=== PATIENT | male | born 1930 | race Caucasian/White ===

== ENCOUNTER → 2017-09-25 | Outpatient (CLI) | payer MEDICARE ==
--- NOTE | 2017-09-25 15:26 | CT ---
EXAMINATION TYPE: CT urogram wo/w con DATE OF EXAM: 09/25/2017 COMPARISON: NONE HISTORY: Gross hematuria. CT DLP: 3957 mGycm, Automated Exposure Control for Dose Reduction was Utilized. CONTRAST: CT scan of the abdomen and pelvis is performed with oral and without and with IV Contrast, patient in jected with 60 mL of Isovue M300. FINDINGS: Small hiatal hernia noted. LUNG BASES: Basilar interstitial changes are present, there is calcified pleura at the posterior righ t lung base with minimal pleural thickening, there areas of thickened septal bands, interlobular sept al pleural thickening. No pleural or pericardial effusion. Patient is post median sternotomy. Heart i s enlarged. There are coronary artery calcifications. LIVER/GB: Cystic focus is present within the left lobe of the liver measuring approximately 4.4 cm. G allbladder is unremarkable PANCREAS: No significant abnormality is seen. SPLEEN: Borderline enlarged. ADRENALS: No significant abnormality is seen. KIDNEYS: Partially duplex right and left collecting system is present. Kidneys show no mass or hydron ephrosis. Ureters show normal course and caliber. BOWEL: Diverticular changes associated with the sigmoid colon. PROSTATE/SEMINAL VESICLES: Prostate size mildly increased, inferior impression on the urinary bladde r is noted. LYMPH NODES: No greater than 1cm abdominal or pelvic lymph nodes are appreciated. OSSEOUS STRUCTURES: Degenerative disc disease present within the visualized spine. There are some ass ociated facet arthropathy changes, mild spinal curvature. OTHER: Urinary bladder is distended and cash ws a thickened wall. IMPRESSION: Urine distended bladder, correlate to exclude cystitis versus chronic bladder outlet obst ruction. Diverticulosis. Duplicated renal collecting systems. Additional findings above.
== END | disposition home or self-care (01) ==
LOC: RADCTMAIN 11:51
PROVIDERS: ATTEND Urology
DX: K57.30 Diverticulosis of large intestine without perforation or abscess without bleeding (principal); N32.89 Other specified disorders of bladder; N40.0 Benign prostatic hyperplasia without lower urinary tract symptoms; R16.1 Splenomegaly, not elsewhere classified; R31.0 Gross hematuria; K76.89 Other specified diseases of liver; Z88.1 Allergy status to other antibiotic agents
CPT/HCPCS: 82565; 84520; 74178; 36415; 74400; Q9967

== ENCOUNTER → 2017-12-11 | Outpatient (CLI) | payer MEDICARE ==
[2017-12-11 11:12] LABS: Appearance,Urine Turbid (Clear); Bacteria,Urine Occasional /hpf; Bilirubin,Urine Negative (Negative); Blood,Urine Moderate (Negative); Color,Urine Yellow; Glucose,Urine (UA) 1+ (Negative); Ketones,Urine Negative (Negative); Leukocyte Esterase,Urine Large (Negative); Mucus,Urine Rare /hpf; Nitrite,Urine Negative (Negative); Protein,Urine 3+ (Negative); RBC,Urine 10 /hpf (0-5); Specific Gravity,Urine 1.014 (1.001-1.035); Urobilinogen,Urine <2.0 mg/dL (<2.0); WBC,Urine >182 /hpf (0-5)
[2017-12-11 11:30] LABS: Basophils # (A) 0.1 k/uL (0-0.2); Basophils % (A) 1 %; Eosinophils # (A) 0.2 k/uL (0-0.7); Eosinophils % (A) 3 %; HCT 37.3 % (39.0-53.0); HGB 11.7 gm/dL (13.0-17.5); Hypochromasia Slight; Lymphocytes % (A) 11 %; MCH 24.8 pg (25.0-35.0); MCHC 31.3 g/dL (31.0-37.0); MCV 79.1 fL (80.0-100.0); Mean Platelet Volume 7.1; Monocytes # (A) 0.6 k/uL (0-1.0); Monocytes % (A) 6 %; Neutrophils # (A) 6.9 k/uL (1.3-7.7); Neutrophils % (A) 79 %; Platelet Count 232 k/uL (150-450); RBC 4.72 m/uL (4.30-5.90); RDW 15.4 % (11.5-15.5); WBC 8.8 k/uL (3.8-10.6)
[2017-12-11 13:45] LABS: Calcium 9.4 mg/dL (8.4-10.2); Potassium 4.8 mmol/L (3.5-5.1)
== END | disposition home or self-care (01) ==
LOC: LABPAT 10:22
PROVIDERS: ATTEND Urology
DX: Z01.812 Encounter for preprocedural laboratory examination (principal); E03.9 Hypothyroidism, unspecified; N40.1 Benign prostatic hyperplasia with lower urinary tract symptoms; R33.9 Retention of urine, unspecified; R35.0 Frequency of micturition; R31.29 Other microscopic hematuria
CPT/HCPCS: 36415; 80048; 81001; 85025; 87086

== ENCOUNTER 2019-04-22 09:12 | Day surgery (SDC) | payer MEDICARE ==
[2019-04-20 15:59] VITALS: BMI 23.6
--- NOTE | 2019-04-21 19:50 | P.GSHP ---
History of Present Illness H&P Date: 04/21/19 88 yo male in urine retention He would like to get rid of the catheter He has failed medication treatments to liberate him from the catheter.. He comes for a turp. - Constitutional Constitutional: Denies chills, Denies fever - EENT Eyes: denies blurred vision, denies pain Ears, nose, mouth and throat: Denies headache, Denies sore throat - Cardiovascular Cardiovascular: Denies chest pain, Denies shortness of breath - Respiratory Respiratory: Denies cough, Denies 7 - Gastrointestinal Gastrointestinal: Denies abdominal pain, Denies diarrhea, Denies nausea, Denies vomiting - Genitourinary (Female) Genitourinary: Denies dysuria, Denies hematuria - Genitourinary (Male) Genitourinary: Denies dysuria, Denies hematuria - Musculoskeletal Musculoskeletal: Denies myalgias - Integumentary Integumentary: Denies pruritus, Denies rash - Neurological Neurological: Denies numbness, Denies weakness - Psychiatric Psychiatric: Denies anxiety, Denies depression - Endocrine Endocrine: Denies fatigue, Denies weight change Past Medical History Past Medical History: Atrial Fibrillation, Diabetes Mellitus, Hearing Disorder / Deafness, Hyperlipidemia, Hypertension, Osteoarthritis (OA), Renal Disease Additional Past Medical History / Comment(s): ulcer years ago, indwelling catheter, 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 ago, trigger finger surg. today on left pinky & middle fingers-current bandages on Past Anesthesia/Blood Transfusion Reactions: No Reported Reaction Smoking Status: Never smoker Medications and Allergies Home Medications Medication Instructions Recorded Confirmed Type Apixaban [Eliquis] 2.5 mg PO BID 04/21/19 04/21/19 History Atorvastatin [Lipitor] 80 mg PO HS 04/21/19 04/21/19 History Cholecalciferol [Vitamin D3 (25 1,000 unit PO BID 04/21/19 04/21/19 History Mcg = 1000 Iu)] Donepezil HCl [Aricept] 10 mg PO DAILY 04/21/19 04/21/19 History Ferrous Sulfate [Feosol] 65 mg PO DAILY 04/21/19 04/21/19 History Furosemide [Lasix] 20 mg PO DAILY 04/21/19 04/21/19 History Insulin NPH Hum/Reg Insulin Hm See Protocol SQ BID 04/21/19 04/21/19 History [humuLIN 70/30 Kwikpen] Levothyroxine Sodium [Synthroid] 125 mcg PO DAILY 04/21/19 04/21/19 History Magnesium Oxide [Mag-Ox] 400 mg PO DAILY 04/21/19 04/21/19 History Metoprolol Succinate (ER) [Toprol 25 mg PO DAILY 04/21/19 04/21/19 History Xl] Multivitamins, Thera [Multivitamin 1 tab PO DAILY 04/21/19 04/21/19 History (formulary)] NIFEdipine XL [Procardia Xl] 60 mg PO DAILY 04/21/19 04/21/19 History [place]-3 Fatty Acids/Fish Oil [Fish 1 each PO BID 04/21/19 04/21/19 History Oil 1,000 mg Softgel] Sertraline [Zoloft] 100 mg PO DAILY 04/21/19 04/21/19 History lamoTRIgine [LaMICtal Xr] 100 mg PO DAILY 04/21/19 04/21/19 History Allergies Allergy/AdvReac Type Severity Reaction Status Date / Time cephalexin [From Keflex] Allergy Unknown Verified 04/20/19 14:51 dexamethasone [From Decadron] Allergy Unknown Verified 04/21/19 08:29 Surgical - Exam - General well developed, well nourished, no distress - Eyes PERRL - ENT decreased hearing - Neck no masses, trachea midline - Respiratory normal expansion, normal respiratory effort - Cardiovascular Rhythm: irregularly irregular - Abdomen Abdomen: soft, non tender - Genitourinary indwelling catheter with a 30 gm prostate normal penis with no external lesions, testicles present - Neurologic normal coordination, normal sensation - Psychiatric oriented to time, oriented to person, oriented to place, memory intact Assessment and Plan Assessment: Impression: Urine retention secondary to BPH Plan Bipolar turp
[~2019-04-22 09:12] MED LIST: AMPICILLIN 1,000 MG in SODIUM CHLORIDE 0.9% 50 ML IVPB ONE; GENTAMICIN 100 MG in SODIUM CHLORIDE 0.9% 100 ML IVPB ONE; HYDROmorphone 0.5 MG/0.5 ML SYRINGE IVP PRN; LIDOCAINE 1% 20 ML VIAL (10MG/ML) FOR IV START INTRADERMA PRN; MIDAZOLAM 2 MG/2 ML VIAL IV PRN; ONDANSETRON 4 MG/2 ML VIAL IVP ONE; SCOPOLAMINE 1.5MG/72HR PATCH TRANSDERM ONE
[2019-04-22 09:51] LABS: Glucose,Whole Blood 200 mg/dL (75-99)
[2019-04-22] MEDS ORDERED: fentaNYL (PF) 50 MCG/ML 2 ML AMP ONE (10:04)
[2019-04-22] MEDS ORDERED: diphenhydrAMINE 50 MG/ML 1 ML VIAL ONE (10:04)
[2019-04-22] MEDS ORDERED: MIDAZOLAM 2 MG/2 ML VIAL ONE (10:04)
[2019-04-22] MEDS: LACTATED RINGERS 1,000 ML IV SCH (10:09)
[2019-04-22] MEDS ORDERED: ACETAMINOPHEN TAB 325 MG TAB PO PRN (11:14)
[2019-04-22] MEDS ORDERED: MAG HYDROX/AL HYDROX/SIMETH 30 ML CUP PO PRN (11:14)
[2019-04-22] MEDS ORDERED: BELLADONNA-OPIUM 16.2-60 MG 1 EACH SUPP RECTAL PRN (11:14)
[2019-04-22 11:19] LABS: Glucose,Whole Blood 177 mg/dL (75-99)
--- NOTE | 2019-04-22 11:21 | P.OP ---
Date of Procedure: 04/22/19 Preoperative Diagnosis: Urine retention secondary to BPH Postoperative Diagnosis: Same Procedure(s) Performed: Cystoscopy with bipolar TURP Anesthesia: spinal Surgeon: Rashard Edward Estimated Blood Loss (ml): 50 Pathology: other (Prostate) Condition: stable Disposition: PACU Indications for Procedure: The patient is 88. His urine retention. This failed alpha blockade to control this. He has a somewhat hypotonic bladder but comes for a TURP to see if we can liberate him of the catheter Description of Procedure: Patient is brought to the operating suite. He is given a spinal anesthetic. He's placed lithotomy position with care to airways and extremities. He is prepped and draped sterilely. Under direct vision the 25-Bolivian sheath direct vision obturator and Foroblique lenses passed into the urethra is normal. The prostate shows lateral lobe obstruction with a high riding bladder neck. The bladder wall shows catheter edema and trabeculation. I irrigate the prostate and bladder out multiple times with saline to clean out any debris. With the bipolar loop and [place] resectoscope I resect the middle lobe first a. I then moved to 12:00 resect the right lateral lobe than the right lateral lobe and then resect the redundant floor tissue. Bleeding was controlled electrocautery. The bladder is free to prostatic chips with the irrigation. I reinspected the bladder there is no active bleeding [place] any remaining prostatic chips a. An 18-Bolivian coud-tip catheter with a 5 mL balloon is introduced in the bladder with clear urine return. The patient awake and returned recovery in good condition. Blood loss is approximately 50 mL. He tolerated the procedure well be observed in the hospital overnight because of his living situation and his age.
[2019-04-22 12:50] LABS: Glucose,Whole Blood 179 mg/dL (75-99)
[2019-04-22 17:03] LABS: Glucose,Whole Blood 200 mg/dL (75-99)
[2019-04-22] MEDS: SODIUM CHLORIDE 0.45% 1,000 ML IV SCH (17:04)
[2019-04-22] MEDS ORDERED: INSULN ASP PRT/INSULIN ASPART 100 UNIT/ML 10 ML VIAL SQ SCH (17:30)
[2019-04-22] MEDS ORDERED: INSULIN NPH 300 UNIT/3 ML VIAL SQ STA (19:03)
[2019-04-22] MEDS: INSULIN ASPART (NovoLOG) 100 UNIT/ML VIAL SQ SCH (20:01)
[2019-04-22 20:05] LABS: Glucose,Whole Blood 152 mg/dL (75-99)
[2019-04-22] MEDS: DOCUSATE 100 MG CAP PO SCH (20:25)
[2019-04-22] MEDS: ATORVASTATIN 80 MG TAB PO SCH (20:25)
--- NOTE | 2019-04-22 21:34 | P.CONS ---
History of Present Illness - Reason for Consult Consult date: 04/22/19 Medical management Requesting physician: Rashard Edward - Chief Complaint TURP - History of Present Illness Consultation: This is a 88-year-old patient of Dr. Harrison. Long-standing history of BPH. Patient been tried on conservative management including alpha blockers. Symptoms have been getting worse. Patient was starting to get a atonic bladder. Patient today underwent a cystoscopy directed TURP per Dr. Ingram. Postprocedure has a Fairchild catheter. Slight blood-tinged urine. Because of prior history of cleft palate surgery patient is difficult to understand. Con pasquale family the bedside. We'll make stable medical conditions include atrial fibrillation, diabetes, hard of hearing, hypertension, hyperlipidemia, osteoarthritis, coronary artery disease bypass. Patient laying in bed, comfortable. Earlier ordered 12 units of NPH and a sliding scale with his evening meal. Review of systems difficult to pain because of patient's speech Social history: Does not smoke or drink alcohol Family history: Patient cannot tell Physical examination: VITAL SIGNS: 96.7, 64, 18, 137-75, 100% room air GENERAL: BMI 23.6, laying in bed awake comfortable. EYES: Pupils equal. Conjunctiva normal. HEENT: External appearance of nose and ears normal, oral cavity grossly normal. NECK: JVD not raised; masses not palpable. HEART: First and second heart sounds are normal; no edema. LUNGS: Respiratory rate normal; clear to auscultation. ABDOMEN: Soft, nontender, liver spleen not palpable, no masses palpable Fairchild catheter in place with blood-tinged urine. PSYCH: [Difficult to assess because of speech. NEUROLOGICAL: Cranial nerves grossly intact; no facial asymmetry, power and sensation grossly intact. 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 Other home medications are to be continued. Accu-Cheks will be followed. Currently no family the bedside. Thank you Dr. 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 ago, trigger finger surg. today on left pinky & middle fingers-current bandages on Past Anesthesia/Blood Transfusion Reactions: No Reported Reaction Past Psychological History: No Psychological Hx Reported Smoking Status: Never smoker Past Alcohol Use History: None Reported Past Drug Use History: None Reported Medications and Allergies Home Medications Medication Instructions Recorded Confirmed Type Apixaban [Eliquis] 2.5 mg PO BID 04/21/19 04/21/19 History Atorvastatin [Lipitor] 80 mg PO HS 04/21/19 04/22/19 History Cholecalciferol [Vitamin D3 (25 1,000 unit PO BID 04/21/19 04/21/19 History Mcg = 1000 Iu)] Donepezil HCl [Aricept] 10 mg PO DAILY 04/21/19 04/22/19 History Ferrous Sulfate [Feosol] 65 mg PO DAILY 04/21/19 04/21/19 History Furosemide [Lasix] 20 mg PO DAILY 04/21/19 04/21/19 History Insulin NPH Hum/Reg Insulin Hm See Protocol SQ BID 04/21/19 04/22/19 History [humuLIN 70/30 Kwikpen] Levothyroxine Sodium [Synthroid] 125 mcg PO DAILY 04/21/19 04/21/19 History Magnesium Oxide [Mag-Ox] 400 mg PO DAILY 04/21/19 04/21/19 History Metoprolol Succinate (ER) [Toprol 25 mg PO DAILY 04/21/19 04/21/19 History Xl] Multivitamins, Thera [Multivitamin 1 tab PO DAILY 04/21/19 04/21/19 History (formulary)] NIFEdipine XL [Procardia Xl] 60 mg PO DAILY 04/21/19 04/21/19 History [place]-3 Fatty Acids/Fish Oil [Fish 1 each PO BID 04/21/19 04/21/19 History Oil 1,000 mg Softgel] Sertraline [Zoloft] 100 mg PO DAILY 04/21/19 04/21/19 History lamoTRIgine [LaMICtal Xr] 100 mg PO DAILY 04/21/19 04/21/19 History Allergies Allergy/AdvReac Type Severity Reaction Status Date / Time cephalexin [From Keflex] Allergy Unknown Verified 04/20/19 14:51 dexamethasone [From Decadron] Allergy Unknown Verified 04/21/19 08:29 Physical Exam Vitals: Vital Signs Temp Pulse Pulse Pulse Resp BP BP 04/22/19 15:57 74 04/22/19 14:00 89 128/63 04/22/19 13:45 83 113/68 04/22/19 13:30 86 127/68 04/22/19 13:15 82 129/70 04/22/19 13:00 94 151/79 04/22/19 12:45 95 126/69 04/22/19 12:30 89 136/68 04/22/19 12:15 79 146/66 04/22/19 12:00 97.9 F 69 16 148/69 04/22/19 11:45 74 16 129/73 04/22/19 11:30 80 16 163/70 04/22/19 11:15 93 16 146/63 04/22/19 11:07 98.2 F 90 12 156/79 04/22/19 09:44 96.7 F L 64 18 137/75 Pulse Ox 04/22/19 15:57 04/22/19 14:00 95 04/22/19 13:45 97 04/22/19 13:30 95 04/22/19 13:15 95 04/22/19 13:00 96 04/22/19 12:45 96 04/22/19 12:30 97 04/22/19 12:15 95 04/22/19 12:00 96 04/22/19 11:45 92 L 04/22/19 11:30 94 L 04/22/19 11:15 93 L 04/22/19 11:07 96 04/22/19 09:44 100 Intake and Output 04/22/19 04/22/19 04/22/19 06:59 14:59 22:59 Intake Total 1092.5 Output Total 350 Balance 742.5 Intake: IV 752.5 Intake, IV Titration 100 Amount Sodium Chloride 0.45% 1, 100 000 ml @ 50 mls/hr IV . Q20H [facility] Rx#:[id number] Oral 240 Output: Urine 300 Estimated Blood Loss 50 Other: Voiding Method Indwelling Catheter Results Labs: Abnormal Lab Results - Last 24 Hours (Table) 04/22/19 04/22/19 04/22/19 Range/Units 09:45 11:17 12:39 POC Glucose (mg/dL) 200 H 177 H 179 H (75-99) mg/dL 04/22/19 04/22/19 Range/Units 16:50 19:53 POC Glucose (mg/dL) 200 H 152 H (75-99) mg/dL
[2019-04-23] MEDS: LEVOTHYROXINE 125 MCG TAB PO SCH (05:33)
[2019-04-23 07:00] LABS: Glucose,Whole Blood 146 mg/dL (75-99)
[2019-04-23] MEDS ORDERED: INSULN ASP PRT/INSULIN ASPART 100 UNIT/ML 10 ML VIAL SQ SCH ×2 (07:30→12:30)
[2019-04-23] MEDS: INSULIN ASPART (NovoLOG) 100 UNIT/ML VIAL SQ SCH ×4 (07:32→20:40)
[2019-04-23] MEDS: INSULN ASP PRT/INSULIN ASPART 100 UNIT/ML 10 ML VIAL SQ SCH ×2 (07:34→17:32)
[2019-04-23] MEDS: SERTRALINE 100 MG TAB PO SCH (08:41)
[2019-04-23] MEDS: DOCUSATE 100 MG CAP PO SCH ×2 (08:41→20:39)
[2019-04-23] MEDS: FERROUS SULFATE 325 MG TAB PO SCH (08:41)
[2019-04-23] MEDS: METOPROLOL SUCCINATE (ER) 25 MG TAB.ER.24H PO SCH (08:41)
[2019-04-23] MEDS: MAGNESIUM OXIDE 400 MG TAB PO SCH (08:41)
[2019-04-23] MEDS: FUROSEMIDE 20 MG TAB PO SCH (08:41)
[2019-04-23] MEDS: lamoTRIgine 25 MG TAB PO SCH ×2 (08:41→20:40)
[2019-04-23] MEDS: DONEPEZIL 10 MG TAB PO SCH (08:41)
[2019-04-23] MEDS: LACTATED RINGERS 1,000 ML IV SCH (08:43)
[2019-04-23] MEDS: SODIUM CHLORIDE 0.45% 1,000 ML IV SCH (08:45)
--- NOTE | 2019-04-23 11:50 | P.PN ---
Subjective Progress Note Date: 04/23/19 The patient is in his first postoperative day from a bipolar TURP. The urine is clear. His vital signs are stable. The patient is 88, deaf and lives at home with his daughter who is at work. The catheter which should come out in the morning. Whether he stays this evening and I pulled out in the morning goes home tonight comes the office would be dependent on transportation. We'll try to contact his daughter later this afternoon. Objective - Vital Signs Vital signs: Vital Signs Temp 98.4 F 04/23/19 07:00 Pulse 75 04/23/19 07:00 Resp 17 04/23/19 07:00 BP 186/62 04/23/19 07:00 Pulse Ox 96 04/23/19 07:00 Intake & Output 04/22/19 04/23/19 04/23/19 18:59 06:59 18:59 Intake Total 1092.5 600 Output Total 350 1000 400 Balance 742.5 -400 -400 Weight 70.307 kg Intake: IV 752.5 Intake, IV Titration 100 600 Amount Sodium Chloride 0.45% 1, 100 600 000 ml @ 50 mls/hr IV . Q20H [facility] Rx#:[id number] Oral 240 Output: Urine 300 1000 400 Uretheral (Fairchild) 400 Estimated Blood Loss 50 Other: Voiding Method Indwelling Catheter Indwelling Catheter Indwelling Catheter - Labs Labs: Abnormal Lab Results - Last 24 Hours (Table) 04/22/19 04/22/19 04/22/19 Range/Units 12:39 16:50 19:53 POC Glucose (mg/dL) 179 H 200 H 152 H (75-99) mg/dL 04/23/19 Range/Units 06:48 POC Glucose (mg/dL) 146 H (75-99) mg/dL
[2019-04-23 11:53] LABS: Glucose,Whole Blood 76 mg/dL (75-99)
[2019-04-23 17:09] LABS: Glucose,Whole Blood 150 mg/dL (75-99)
[2019-04-23 19:31] VITALS: RESP 16
[2019-04-23 20:23] LABS: Glucose,Whole Blood 159 mg/dL (75-99)
[2019-04-23] MEDS: ATORVASTATIN 80 MG TAB PO SCH (20:39)
[2019-04-23] MEDS: BACITRACIN OINT 1 EACH PACKET TOPICAL SCH (20:41)
--- NOTE | 2019-04-23 23:07 | P.PN ---
Progress Note - Text Progress Note Date: 04/23/19 - Chief Complaint TURP Consultation: This is a 88-year-old patient of Dr. Harrison. Long-standing history of BPH. Patient been tried on conservative management including alpha blockers. Symptoms have been getting worse. Patient was starting to get a atonic bladder. Patient today underwent a cystoscopy directed TURP per Dr. Ingram. Postprocedure has a Fairchild catheter. Slight blood-tinged urine. Because of prior history of cleft palate surgery patient is difficult to understand. Continue family the bedside. We'll make stable medical conditions include atrial fibrillation, diabetes, hard of hearing, hypertension, hyperlipidemia, osteoarthritis, coronary artery disease bypass. Patient laying in bed, comfortable. Earlier ordered 12 units of NPH and a sliding scale with his evening meal. today-the in bed. Doing well. Urine is clearing up significantly. Eating better. Active Medications Acetaminophen (Tylenol Tab) 650 mg PO Q4HR PRN PRN Reason: Fever and/ or Pain Al Hydroxide/Mg Hydroxide (Maalox) 30 ml PO DAILY PRN PRN Reason: Indigestion Atorvastatin Calcium (Lipitor) 80 mg PO HS [facility] Last Admin: 04/23/19 20:39 Dose: 80 mg Documented by: Bacitracin (Bacitracin Oint) 1 each TOPICAL TID [facility] Last Admin: 04/23/19 20:41 Dose: 1 each Documented by: Belladonna Alkaloids/Opium (B&O Suppository) 1 each RECTAL Q6HR PRN PRN Reason: Spasms Docusate Sodium (Colace) 100 mg PO BID [facility] Last Admin: 04/23/19 20:39 Dose: 100 mg Documented by: Donepezil HCl (Aricept) 10 mg PO DAILY [facility] Last Admin: 04/23/19 08:41 Dose: 10 mg Documented by: Ferrous Sulfate (Feosol) 325 mg PO DAILY [facility] Last Admin: 04/23/19 08:41 Dose: 325 mg Documented by: Furosemide (Lasix) 20 mg PO DAILY [facility] Last Admin: 04/23/19 08:41 Dose: 20 mg Documented by: Lactated Ringer's (Lactated Ringers) 1,000 mls @ 20 mls/hr IV .Q24H [facility] Last Admin: 04/23/19 08:43 Dose: Not Given Documented by: Sodium Chloride (Saline 0.45%) 1,000 mls @ 50 mls/hr IV .Q20H [facility] Last Admin: 04/23/19 08:45 Dose: 50 mls/hr Documented by: Insulin Aspart (Novolog) 0 unit SQ ACHS [facility]; Protocol Last Admin: 04/23/19 20:40 Dose: 1 unit Documented by: Insulin Aspart (Novolog Mix 70-30 Vial) 22 unit SQ AC-BID [place] Insulin Aspart (Novolog Mix 70-30 Vial) 8 unit SQ AC-LUNCH [facility] Lamotrigine (Lamictal) 50 mg PO BID [facility] Last Admin: 04/23/19 20:40 Dose: 50 mg Documented by: Levothyroxine Sodium (Synthroid) 125 mcg PO 0630 [facility] Last Admin: 04/23/19 05:33 Dose: 125 mcg Documented by: Lidocaine HCl (.Xylocaine 1% Inj (10mg/Ml) For Iv Start) 0.1 ml INTRADERMA PER PROTOCOL PRN PRN Reason: IV Start Last Admin: 04/22/19 10:09 Dose: 0.1 ml Documented by: Magnesium Oxide (Mag-Ox) 400 mg PO DAILY [facility] Last Admin: 04/23/19 08:41 Dose: 400 mg Documented by: Metoprolol Succinate (Toprol Xl) 25 mg PO DAILY [facility] Last Admin: 04/23/19 08:41 Dose: 25 mg Documented by: Nifedipine (Procardia Xl) 60 mg PO DAILY [facility] Last Admin: 04/23/19 08:41 Dose: 60 mg Documented by: Sertraline HCl (Zoloft) 100 mg PO DAILY [facility] Last Admin: 04/23/19 08:41 Dose: 100 mg Documented by: Physical examination: VITAL SIGNS: 98.3, 112, 150 twice a day, 93% on 3 L GENERAL: BMI 23.6, laying in bed awake comfortable. EYES: Pupils equal. Conjunctiva normal. HEENT: External appearance of nose and ears normal, oral cavity grossly normal. NECK: JVD not raised; masses not palpable. HEART: First and second heart sounds are normal; no edema. LUNGS: Respiratory rate normal; clear to auscultation. ABDOMEN: Soft, nontender, liver spleen not palpable, no masses palpable Fairchild catheter in place with blood-tinged urine. PSYCH: [Difficult to assess because of speech. INVESTIGATIONS, reviewed in the clinical context: Accu-Chekson 108, 186, 157 Assessment: -Status post TURP cystoscopy for symptomatic BPH, having failed conservative management -Coronary artery disease with a bypass over 20 years ago -History of atrial fibrillation. 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 Other medications to continue. Check labs in the morning. Thank you Dr. Ingram
[2019-04-24] MEDS: SODIUM CHLORIDE 0.45% 1,000 ML IV SCH (05:11)
[2019-04-24] MEDS: LEVOTHYROXINE 125 MCG TAB PO SCH (05:17)
[2019-04-24 06:33] LABS: HGB 13.9 gm/dL (13.0-17.5); MCH 30.4 pg (25.0-35.0); MCHC 33.8 g/dL (31.0-37.0); MCV 89.9 fL (80.0-100.0); Mean Platelet Volume 7.3; Platelet Count 171 k/uL (150-450); RBC 4.56 m/uL (4.30-5.90); RDW 12.8 % (11.5-15.5); WBC 12.7 k/uL (3.8-10.6)
[2019-04-24 06:56] LABS: Glucose,Whole Blood 147 mg/dL (75-99)
[2019-04-24] MEDS: INSULIN ASPART (NovoLOG) 100 UNIT/ML VIAL SQ SCH ×3 (08:03→16:53)
[2019-04-24] MEDS: INSULN ASP PRT/INSULIN ASPART 100 UNIT/ML 10 ML VIAL SQ SCH ×2 (08:04→16:54)
[2019-04-24] MEDS: LACTATED RINGERS 1,000 ML IV SCH (09:40)
[2019-04-24] MEDS: FERROUS SULFATE 325 MG TAB PO SCH (09:41)
[2019-04-24] MEDS: MAGNESIUM OXIDE 400 MG TAB PO SCH (09:41)
[2019-04-24] MEDS: DONEPEZIL 10 MG TAB PO SCH (09:41)
[2019-04-24] MEDS: FUROSEMIDE 20 MG TAB PO SCH (09:42)
[2019-04-24] MEDS: METOPROLOL SUCCINATE (ER) 25 MG TAB.ER.24H PO SCH (09:42)
[2019-04-24] MEDS: DOCUSATE 100 MG CAP PO SCH (09:42)
[2019-04-24] MEDS: SERTRALINE 100 MG TAB PO SCH (09:42)
[2019-04-24] MEDS: lamoTRIgine 25 MG TAB PO SCH (09:43)
[2019-04-24] MEDS: BACITRACIN OINT 1 EACH PACKET TOPICAL SCH ×2 (09:43→16:54)
[2019-04-24 11:50] LABS: Glucose,Whole Blood 177 mg/dL (75-99)
[2019-04-24] MEDS ORDERED: INSULN ASP PRT/INSULIN ASPART 100 UNIT/ML 10 ML VIAL SQ SCH (12:30)
[2019-04-24 15:22] VITALS: BP 159/82; PULSE 50; TEMP 97.8
[2019-04-24 16:55] LABS: Glucose,Whole Blood 63 mg/dL (75-99)
[2019-04-24 17:11] LABS: Glucose,Whole Blood 111 mg/dL (75-99)
--- NOTE | 2019-04-27 14:41 | P.PN ---
Progress Note - Text Progress Note Date: 04/24/19 - Chief Complaint TURP Consultation: This is a 88-year-old patient of Dr. Harrison. Long-standing history of BPH. Patient been tried on conservative management including alpha blockers. Symptoms have been getting worse. Patient was starting to get a atonic bladder. Patient underwent a cystoscopy directed TURP per Dr. Ingram. Postprocedure has a Fairchild catheter. Slight blood-tinged urine. Because of prior history of cleft palate surgery patient is difficult to understand. Chronic stable medical conditions include atrial fibrillation, diabetes, hard of hearing, hypertension, hyperlipidemia, osteoarthritis, coronary artery disease bypass. Patient laying in bed, comfortable. Earlier ordered 12 units of NPH and a sliding scale with his evening meal. today-doing better. Urine is nearly cleared. Tolerating a diet. Insulin 70/30 doses. Adjusted. Review of systems somewhat difficult to obtain because of dysarthria Current medications are reviewed from today's electronic records Physical examination: VITAL SIGNS: 97.7, 88, 16, 134/65, 94% room air GENERAL: sitting up, comfortable. EYES: Pupils equal. Conjunctiva normal. HEENT: External appearance of nose and ears normal, oral cavity grossly normal. NECK: JVD not raised; masses not palpable. HEART: First and second heart sounds are normal; no edema. LUNGS: Respiratory rate normal; clear to auscultation. ABDOMEN: Soft, nontender, liver spleen not palpable, no masses palpable Fairchild catheter in place minimally blood-tinged urine. PSYCH: Difficult to assess because of speech. 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 Need to be followed up further as an outpatient. Plan: Novolin 70/30 to be adjusted to 24 units before breakfast and supper and 6 units before lunch. Accu-Cheks to be followed. Follow-up with PCP Thank you Dr. Ingram
== END 2019-04-24 18:16 | disposition home or self-care (01) ==
LOC: OR 09:12 → 4SSUR 11:04 → OR 04-24 18:16
PROVIDERS: ATTEND Urology
DX: N40.1 Benign prostatic hyperplasia with lower urinary tract symptoms (principal); R33.8 Other retention of urine; I48.0 Paroxysmal atrial fibrillation; E11.22 Type 2 diabetes mellitus with diabetic chronic kidney disease; E11.51 Type 2 diabetes mellitus with diabetic peripheral angiopathy without gangrene; I12.9 Hypertensive chronic kidney disease with stage 1 through stage 4 chronic kidney disease, or unspecified chronic kidney disease; N18.3 Chronic kidney disease, stage 3 (moderate); H91.90 Unspecified hearing loss, unspecified ear; E78.2 Mixed hyperlipidemia; I10 Essential (primary) hypertension; M19.90 Unspecified osteoarthritis, unspecified site; N28.9 Disorder of kidney and ureter, unspecified; Q35.9 Cleft palate, unspecified; Z95.1 Presence of aortocoronary bypass graft; F03.90 Unspecified dementia, unspecified severity, without behavioral disturbance, psychotic disturbance, mood disturbance, and anxiety; I35.0 Nonrheumatic aortic (valve) stenosis; Z97.2 Presence of dental prosthetic device (complete) (partial); Z96.0 Presence of urogenital implants; Z79.01 Long term (current) use of anticoagulants; Z79.890 Hormone replacement therapy; Z79.4 Long term (current) use of insulin; Z79.899 Other long term (current) drug therapy; Z88.1 Allergy status to other antibiotic agents; Z88.8 Allergy status to other drugs, medicaments and biological substances
CPT/HCPCS: 93005; 88305; 80048; 85027; 83036; 52601; J2250; J1200; J2405; J3010; J1580; J0290

== ENCOUNTER 2019-05-07 16:38 | Inpatient (IN) | payer MEDICARE ==
[2019-05-07] MEDS ORDERED: VANCOMYCIN 1,000 MG in SODIUM CHLORIDE 0.9% 250 ML IVPB STA (20:27)
[2019-05-07] MEDS ORDERED: PROPOFOL 10 MG/ML 20 ML VIAL IV ONE (20:46)
[2019-05-07] MEDS ORDERED: ePHEDrine SULFATE/0.9% NACL/PF 50 MG/5 ML SYRINGE IV ONE (20:46)
[2019-05-07] MEDS ORDERED: SUCCINYLCHOLINE CHLORIDE 100 MG/5 ML SYR IV ONE (20:46)
[2019-05-07] MEDS ORDERED: ONDANSETRON 4 MG/2 ML VIAL ONE (20:46)
[2019-05-07] MEDS ORDERED: fentaNYL (PF) 50 MCG/ML 2 ML AMP ONE (20:46)
[2019-05-07] MEDS ORDERED: LIDOCAINE 1% INJ 10MG/ML (20 ML MDV) ONE (20:46)
[2019-05-07 20:49] LABS: Glucose,Whole Blood 136 mg/dL (75-99)
[2019-05-07] MEDS ORDERED: ROPIVACAINE 5 MG/ML 30 ML VIAL MISCELLANE ONE (20:49)
[2019-05-07] MEDS ORDERED: LIDOCAINE 1% INJ 10MG/ML (20 ML MDV) SQ ONE (20:49)
[2019-05-07] MEDS ORDERED: LACTATED RINGERS 1,000 ML IV ONE (20:50)
[2019-05-07] MEDS ORDERED: VANCOMYCIN 1,000 MG VIAL IVPB ONE (21:20)
[2019-05-07] MEDS ORDERED: ONDANSETRON 4 MG/2 ML VIAL IVP PRN (22:21)
[2019-05-07] MEDS ORDERED: HYDROcodone/APAP 5-325MG 1 EACH TAB PO PRN (22:21)
[2019-05-07] MEDS ORDERED: MORPHINE SULFATE 4 MG/ML SYRINGE IV PRN (22:21)
[2019-05-07 22:26] LABS: Glucose,Whole Blood 189 mg/dL (75-99)
[2019-05-07] MEDS ORDERED: VANCOMYCIN IV PER PHARMACY 1 EACH MISC MISCELLANE PRN (22:33)
--- NOTE | 2019-05-07 23:04 | P.OP ---
Date of Procedure: 05/07/19 Preoperative Diagnosis: 1. Left middle finger postoperative wound infection with suppurative flexor tenosynovitis. Postoperative Diagnosis: 1. Left middle finger postoperative wound infection with suppurative flexor tenosynovitis. Procedure(s) Performed: 1. Irrigation and debridement of left middle finger wound with flexor tenosynovectomy Anesthesia: JOSY, local Surgeon: Sean Germain Estimated Blood Loss (ml): 3 Pathology: other (culture swab) Condition: stable Disposition: PACU Indications for Procedure: The patient is a pleasant 88-year-old male who recently underwent surgical release of a left middle and small trigger fingers. In postop follow-up, the finger showed progressive erythema and edema consistent with an acute infection and surgical debridement was recommended. Of note, 2 days after the elective trigger release, the patient underwent a TURP. Risks and benefits were discussed with the patient and his daughter in the office today were in agreement to proceed with surgery. In preop, the surgical site was confirmed and marked. Operative Findings: A retained nylon suture fragment was found immediately below the skin. Small areas of thickened, fibrinous exudate were encountered along the tendon sheath but no significant foci of purulence. Description of Procedure: The patient was positioned supine with the operative limb on a hand table. General anesthesia was administered uneventfully. A tourniquet was placed on the left arm but was not inflated. The left upper extremity was then prepped and draped in standard, sterile fashion. A time-out was performed, confirming patient identifiers, the operative side, site and the procedure to be performed: all team members expressed agreement. Loupe magnification was used throughout the case for optimum visualization. The previous surgical wound in the palm was sharply extended distally and bluntly spread, opening easily. A small retained fragment of nylon suture was encountered immediately below the skin and was removed. Small pockets of fibrinous exudative tissue were found diffusely along the flexor tendons. A culture swab was obtained from the flexor sheath, along with a small amount of this tissue. The remaining tissue was debrided and resected with curettes and rongeurs. No large fluid collection or focal area of purulence was identified. A small amount of white material was noted near the proximal wound edge that had the appearance of gouty tophus. This was resected. The flexor tendons showed irritation superficial fraying, but no significant degeneration. A midaxial incision was made over the ulnar aspect of the distal middle phalanx. Spreading dissection proceeded down to the flexor sheath, just distal to the A4 bin. The sheath was opened and a tendon passer was inserted and advanced r etrograde to the proximal wound. A #5 pediatric feeding tube was inserted and passed down the sheath to the distal wound. The flexor sheath was copiously irrigated through the tube using syringes and normal saline. Once adequate debridement was achieved, each incision was loosely closed over a vessel loop drain with interrupted 5-0 Prolene sutures. Good hemostasis was maintained throughout the case without the need for tourniquet. Sterile dressings of Adaptic, 4 x 4's, Pankaj and Coban were applied. All sponge, needle and instrument counts were correct at the end of the case. The patient tolerated the procedure well and was taken to recovery in stable condition. The patient will be returned to the floor for continued monitoring and IV antibiotics, to be guided by intraoperative cultures.
[2019-05-07] MEDS: LACTATED RINGERS 1,000 ML IV SCH (23:24)
--- NOTE | 2019-05-07 23:26 | P.CONS ---
History of Present Illness - Reason for Consult Consult date: 05/07/19 Medical management Requesting physician: Sean Germain - Chief Complaint Left middle finger infection - History of Present Illness Consultation: This is a 88-year-old patient of Dr. Rojas. Because of prior history of cleft palate surgery patient is difficult to understand. No family present at bedside. stable medical conditions include atrial fibrillation, diabetes, hard of hearing, hypertension, hyperlipidemia, osteoarthritis, coronary artery disease bypass. Patient recently underwent a TURP. Patient had recently undergone a surgical release of a left middle and small trigger finger. In the follow-up. It should progressive erythema and edema showing a current infection. Patient's undergone irrigation and debridement of the left middle finger on with flexor tenosynectomy Review of systems difficult to pain because of patient's speech Social history: Does not smoke or drink alcohol Family history: Patient cannot tell Physical examination: VITAL SIGNS: 96.8, 65, 16, 175/72, Rashmi 7% on 2 L GENERAL: BMI 26.3, laying in bed EYES: Pupils equal. Conjunctiva normal. HEENT: External appearance of nose and ears normal, oral cavity grossly normal. NECK: JVD not raised; masses not palpable. HEART: First and second heart sounds are normal; no edema. LUNGS: Respiratory rate normal; clear to auscultation. ABDOMEN: Soft, nontender, liver spleen not palpable, no masses palpable Ramírez catheter in place with blood-tinged urine. PSYCH: [Difficult to assess because of speech. NEUROLOGICAL: Cranial nerves grossly intact; no facial asymmetry, power and sensation grossly intact. 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 Recently. Resume the same dose. Other medications resumed. Check labs in the morning. In view of the renal function will switch the vancomycin to daptomycin in the morning depending on labs. Thank you Dr. Germain Past Medical History Past Medical History: Atrial Fibrillation, Diabetes Mellitus, Hearing Disorder / Deafness, Hyperlipidemia, Hypertension, Osteoarthritis (OA), Renal Disease Additional Past Medical History / Comment(s): ulcer years ago, has cleft palate & is very hard to understand, never learned to read, ramírez removed 05/[address] Edward History of Any Multi-Drug Resistant Organisms: None Reported Past Surgical History: Coronary Bypass/CABG, Heart Catheterization Additional Past Surgical History / Comment(s): triple bypass 20 yrs. ago, trigger finger surg. today on left pinky & middle fingers-current bandages on Past Anesthesia/Blood Transfusion Reactions: No Reported Reaction Past Psychological History: No Psychological Hx Reported Smoking Status: Never smoker Past Alcohol Use History: None Reported Past Drug Use History: None Reported - Past Family History Daughter(s) Family Medical History: Hypertension Medications and Allergies Home Medications Medication Instructions Recorded Confirmed Type Apixaban [Eliquis] 2.5 mg PO BID 04/21/19 05/07/19 History Atorvastatin [Lipitor] 80 mg PO HS 04/21/19 05/07/19 History Cholecalciferol [Vitamin D3 (25 1,000 unit PO BID 04/21/19 05/07/19 History Mcg = 1000 Iu)] Donepezil HCl [Aricept] 10 mg PO HS 04/21/19 05/07/19 History Ferrous Sulfate [Iron (65 MG 65 mg PO BID 04/21/19 05/07/19 History Elemental)] Furosemide [Lasix] 20 mg PO DAILY 04/21/19 05/07/19 History Magnesium Oxide [Mag-Ox] 400 mg PO DAILY 04/21/19 05/07/19 History Metoprolol Succinate (ER) [Toprol 25 mg PO DAILY 04/21/19 05/07/19 History XL] Multivitamins, Thera [Multivitamin 1 tab PO DAILY 04/21/19 05/07/19 History (formulary)] NIFEdipine XL [Procardia XL] 60 mg PO HS 04/21/19 05/07/19 History [place]-3 Fatty Acids/Fish Oil [Fish 1 cap PO BID 04/21/19 05/07/19 History Oil 1,000 mg Softgel] Sertraline [Zoloft] 100 mg PO DAILY 04/21/19 05/07/19 History lamoTRIgine [LaMICtal Xr] 100 mg PO DAILY 04/21/19 05/07/19 History Insulin NPH/Reg Insulin 70/30 24 unit SQ AC-SUPPER 05/07/19 05/07/19 History [humuLIN 70/30 VIAL] Insulin NPH/Reg Insulin 70/30 46 unit SQ AC-BRKFST 05/07/19 05/07/19 History [humuLIN 70/30 VIAL] Levothyroxine Sodium [Synthroid] 137 mcg PO DAILY 05/07/19 05/07/19 History Allergies Allergy/AdvReac Type Severity Reaction Status Date / Time cephalexin [From Keflex] Allergy Unknown Verified 05/07/19 20:21 dexamethasone [From Decadron] Allergy Unknown Verified 05/07/19 20:21 Physical Exam Vitals: Vital Signs Temp Pulse Resp BP Pulse Ox 05/07/19 22:42 63 16 170/71 98 05/07/19 22:32 67 16 175/72 97 05/07/19 22:16 96.8 F L 65 16 180/76 96 05/07/19 20:07 98.4 F 67 16 183/76 97 05/07/19 18:16 98.0 F 63 17 183/69 98 Intake and Output 05/07/19 05/07/19 05/08/19 14:59 22:59 06:59 Intake Total 350 Output Total 3 Balance 347 Intake: IV 350 Output: Estimated Blood Loss 3 Other: Weight 74.049 kg Results Labs: Abnormal Lab Results - Last 24 Hours (Table) 05/07/19 05/07/19 Range/Units 20:47 22:24 POC Glucose (mg/dL) 136 H 189 H (75-99) mg/dL
[2019-05-07 23:43] LABS: Calcium 8.9 mg/dL (8.4-10.2); Potassium 4.3 mmol/L (3.5-5.1)
[2019-05-08] MEDS: LEVOTHYROXINE 137 MCG TAB PO SCH (05:53)
[2019-05-08 07:03] LABS: Glucose,Whole Blood 163 mg/dL (75-99)
[2019-05-08] MEDS ORDERED: INSULN ASP PRT/INSULIN ASPART 100 UNIT/ML 10 ML VIAL SQ SCH ×2 (07:30→17:30)
[2019-05-08 07:41] LABS: HGB 11.7 gm/dL (13.0-17.5); MCH 29.6 pg (25.0-35.0); MCHC 33.3 g/dL (31.0-37.0); MCV 88.9 fL (80.0-100.0); Mean Platelet Volume 7.8; Platelet Count 214 k/uL (150-450); RBC 3.94 m/uL (4.30-5.90); RDW 12.9 % (11.5-15.5); WBC 11.9 k/uL (3.8-10.6)
[2019-05-08 07:56] LABS: Calcium 8.9 mg/dL (8.4-10.2); Potassium 4.5 mmol/L (3.5-5.1)
[2019-05-08] MEDS ORDERED: VANCOMYCIN IV PER PHARMACY 1 EACH MISC MISCELLANE PRN (08:27)
[2019-05-08] MEDS: MAGNESIUM OXIDE 400 MG TAB PO SCH (08:59)
[2019-05-08] MEDS: FERROUS SULFATE 325 MG TAB PO SCH ×2 (08:59→21:10)
[2019-05-08] MEDS: SERTRALINE 100 MG TAB PO SCH (08:59)
[2019-05-08] MEDS: MULTIVITAMINS, THERA 1 EACH TAB PO SCH (08:59)
[2019-05-08] MEDS: FUROSEMIDE 20 MG TAB PO SCH (08:59)
[2019-05-08] MEDS: INSULN ASP PRT/INSULIN ASPART 100 UNIT/ML 10 ML VIAL SQ SCH ×3 (08:59→18:31)
[2019-05-08] MEDS: lamoTRIgine 25 MG TAB PO SCH ×2 (08:59→21:10)
[2019-05-08] MEDS ORDERED: VANCOMYCIN 1,250 MG in SODIUM CHLORIDE 0.9% 250 ML IVPB ONE (09:00)
[2019-05-08] MEDS: METOPROLOL SUCCINATE (ER) 25 MG TAB.ER.24H PO SCH (09:00)
[2019-05-08] MEDS ORDERED: APIXABAN 5 MG TAB PO SCH (09:00)
[2019-05-08] MEDS ORDERED: ENOXAPARIN 40 MG/0.4 ML SYRINGE SQ SCH (09:00)
[2019-05-08 12:00] LABS: Glucose,Whole Blood 126 mg/dL (75-99)
--- NOTE | 2019-05-08 16:05 | PN ---
PROGRESS NOTE DATE OF SERVICE: 05/08/2019 This 88-year-old gentleman who was admitted with irrigation and debridement of the left middle finger with flexor tenosynovectomy is improving significantly. He is being closely monitored. No chest pain. No palpitations. No fever. The patient also had acute renal failure and elevated WBC. Patient is on broad-spectrum IV antibiotics. PHYSICAL EXAMINATION: Alert and oriented x3. Pulse 69, blood pressure 164/66, respirations 16, temperature 98.1, pulse ox 96% on 2 L. HEENT: Conjunctivae normal. NECK: No jugular venous distention. CARDIOVASCULAR SYSTEM: S1, S2 muffled. RESPIRATORY SYSTEM: Breath sounds diminished at the bases. A few scattered rhonchi and crackles. ABDOMEN: Soft, non-tender. No mass palpable. LEGS: No edema. No swelling. NERVOUS SYSTEM: No focal deficit. The patient is extremely hard of hearing. EXAMINATION OF THE LEFT HAND: Status post surgery. LABS: WBC 11.9 and creatinine is 1.8. REVIEW OF SYSTEMS: CARDIOVASCULAR SYSTEM: No angina, palpitations. RESPIRATORY SYSTEM: As mentioned earlier. GI: As mentioned earlier. HEENT: Extremely hard of hearing. CURRENT MEDICATIONS: Reviewed. They include: 1. Dewart 5 mg q.4 p.r.n. 2. Eliquis 2.5 mg p.o. b.i.d. 3. Lipitor 80 mg at bedtime. 4. Aricept 10 mg p.o. at bedtime. 5. Iron sulfate 65 mg p.o. b.i.d. 6. Lasix 20 mg p.o. daily. 7. NovoLog 70/30, 24 units before meals b.i.d. and 6 units before lunch. 8. Lactated Ringer's. 9. Lamictal. 10.Synthroid. 11.Toprol. 12.Morphine sulfate. 13.Multivitamins. 14.Procardia XL. 15.Zoloft. Doses are reviewed. ASSESSMENT: 1. Status post irrigation and debridement of the left middle finger wound with flexor tenosynovectomy for left middle finger postoperative wound infection with suppurative flexor tenosynovitis. 2. Coronary artery disease, coronary artery bypass grafting. 3. Status post TUR, cystoscopy for symptomatic benign prostatic hypertrophy. 4. History of atrial fibrillation, paroxysmal. 5. Diabetes mellitus, type 2. 6. Hypertension. 7. Hyperlipidemia. 8. History of degenerative joint disease. 9. History of cleft palate and resulting dysarthria. 10.Extremely hard of hearing. 11.Chronic kidney disease, stage III, diabetic nephropathy and hypertensive nephrosclerosis. 12.Increased white count. 13.Anemia, normocytic; anemia of chronic disease. RECOMMENDATIONS AND DISCUSSION: In this 88-year-old gentleman who presented with multiple complex medical issues, we will monitor the patient closely, continue the current medications, continue with symptomatic treatment, continue to monitor blood sugars closely. Otherwise, DVT prophylaxis. The patient is on vancomycin. The cultures are pending at this time. Avoid nephrotoxic medications. Closely monitor. Further recommendations to follow. Home medications are reviewed. MMODL / IJN: [id number] /
[2019-05-08 17:16] LABS: Glucose,Whole Blood 131 mg/dL (75-99)
--- NOTE | 2019-05-08 17:27 | P.PN ---
Subjective Progress Note Date: 05/08/19 The patient was seen and examined at the bedside. Interval events discussed with RN. The patient states that the pain is "not too bad" and he feels that it is well-controlled. He denies any other issues or concerns. Objective - Vital Signs Vital signs: Vital Signs Temp 98.1 F 05/08/19 07:49 Pulse 69 05/08/19 07:49 Resp 16 05/08/19 07:49 BP 164/66 05/08/19 07:49 Pulse Ox 96 05/08/19 07:49 Intake & Output 05/07/19 05/08/19 05/08/19 18:59 06:59 18:59 Intake Total 350 118 Output Total 703 Balance -353 118 Weight 74.049 kg Intake: IV 350 Oral 118 Output: Urine 700 Estimated Blood Loss 3 Other: Voiding Method Toilet Toilet # Voids 1 - Exam The dressings were removed. There was only a small amount of dried blood on the undersurface. No purulence. The drains were removed without difficulty. No purulent fluid was expressed from the wounds. The edema and erythema are markedly improved. He is able to perform active range of motion without difficulty but is unable to completely flex finger due to the swelling. - Labs CBC & Chem 7: 05/08/19 07:08 05/08/19 07:08 Labs: Abnormal Lab Results - Last 24 Hours (Table) 05/07/19 05/07/19 05/07/19 Range/Units 20:47 22:24 23:19 WBC (3.8-10.6) k/uL RBC (4.30-5.90) m/uL Hgb (13.0-17.5) gm/dL Hct (39.0-53.0) % BUN 31 H (9-20) mg/dL Creatinine 1.86 H (0.66-1.25) mg/dL Glucose 146 H (74-99) mg/dL POC Glucose (mg/dL) 136 H 189 H (75-99) mg/dL 05/08/19 05/08/19 05/08/19 Range/Units 06:51 07:08 07:08 WBC 11.9 H (3.8-10.6) k/uL RBC 3.94 L (4.30-5.90) m/uL Hgb 11.7 L (13.0-17.5) gm/dL Hct 35.0 L (39.0-53.0) % BUN 31 H (9-20) mg/dL Creatinine 1.83 H (0.66-1.25) mg/dL Glucose 170 H (74-99) mg/dL POC Glucose (mg/dL) 163 H (75-99) mg/dL 05/08/19 Range/Units 11:48 WBC (3.8-10.6) k/uL RBC (4.30-5.90) m/uL Hgb (13.0-17.5) gm/dL Hct (39.0-53.0) % BUN (9-20) mg/dL Creatinine (0.66-1.25) mg/dL Glucose (74-99) mg/dL POC Glucose (mg/dL) 126 H (75-99) mg/dL Microbiology - Last 24 Hours (Table) 05/07/19 21:18 Gram Stain - Preliminary Finger - Left Third Wound Culture - Preliminary 05/07/19 21:18 Anaerobic Culture - Preliminary Finger - Left Third Assessment and Plan Assessment: 1. Postoperative day #1 status post irrigation and debridement of left middle finger with extensor tenosynovectomy 2. Insulin-dependent diabetes mellitus Plan: I discussed the clinical and intraoperative findings with the patient. The finger is looking much better. New dressing was applied. Preliminary cultures show rare gram-positive cocci in pairs. Continue empiric antibiotics per infectious disease. Patient was encouraged to continue working on active and passive range of motion. Based on the intraoperative appearance of the finger, the patient may be a candidate for outpatient treatment with oral antibiotics but will await further recommendations by the infectious disease team. Encourage ambulation for DVT prophylaxis. Continue PRN pain management.
[2019-05-08] MEDS: LACTATED RINGERS 1,000 ML IV SCH (19:35)
[2019-05-08] MEDS: APIXABAN 2.5 MG TABLET PO SCH (21:09)
[2019-05-08] MEDS: NON FORMULARY DRUG (Omega-3 Fatty Acids/Fish Oil [Fish Oil 1,000 Mg Softgel] 1 CAP) PO SCH (21:10)
[2019-05-08] MEDS: ATORVASTATIN 80 MG TAB PO SCH (21:10)
[2019-05-08] MEDS: CHOLECALCIFEROL 1,000 UNIT TAB PO SCH (21:10)
[2019-05-09] MEDS: DONEPEZIL 10 MG TAB PO SCH ×2 (00:19→21:25)
--- NOTE | 2019-05-09 00:49 | P.CONS ---
History of Present Illness - Reason for Consult Consult date: 05/08/19 left middle finger infection Requesting physician: Sean Germain - Chief Complaint left middle finger pain and redness x few days - History of Present Illness Patient is 88-year-old male who is status post recent surgery with surgical release of his left middle and small trigger fingers postoperatively the patient was noticed to have progressive erythema and edema of his left middle finger patient has been diagnosed with cellulitis and infection of his le ft middle finger postoperatively the patient was taken to the OR last night and the patient status post I&D of the left middle finger wound and flexor tenosynovectomy culture has been obtained which is currently showing gram- positive cocci patient has been treated with the vancomycin infectious disease was consulted for further recommendation about antibiotic therapy unfortunately patient is a bit hard to understand an adequate historian however when asked specifically the patient denies having any fever or chills patient mentioning the pain to his left middle finger is currently controlled and is better than yesterday currently with no purulent drainage patient denies having any chest pain shortness with cough no nausea vomiting no abdominal pain and no diarrhea. Review of Systems Positive point has been mentioned in HPI rest of the systems are negative. Past Medical History Past Medical History: Atrial Fibrillation, Diabetes Mellitus, Hearing Disorder / Deafness, Hyperlipidemia, Hypertension, Osteoarthritis (OA), Renal Disease Additional Past Medical History / Comment(s): ulcer years ago, has cleft palate & is very hard to understand, never learned to read, ramírez removed 05/[address] Ryan gamboa History of Any Multi-Drug Resistant Organisms: None Reported Past Surgical History: Coronary Bypass/CABG, Heart Catheterization Additional Past Surgical History / Comment(s): triple bypass 20 yrs. ago, trigger finger surg. today on left pinky & middle fingers-current bandages on Past Anesthesia/Blood Transfusion Reactions: No Reported Reaction Past Psychological History: No Psychological Hx Reported Smoking Status: Never smoker Past Alcohol Use History: None Reported Past Drug Use History: None Reported - Past Family History Daughter(s) Family Medical History: Hypertension Medications and Allergies Home Medications Medication Instructions Recorded Confirmed Type Apixaban [Eliquis] 2.5 mg PO BID 04/21/19 05/07/19 History Atorvastatin [Lipitor] 80 mg PO HS 04/21/19 05/07/19 History Cholecalciferol [Vitamin D3 (25 1,000 unit PO BID 04/21/19 05/07/19 History Mcg = 1000 Iu)] Donepezil HCl [Aricept] 10 mg PO HS 04/21/19 05/07/19 History Ferrous Sulfate [Iron (65 MG 65 mg PO BID 04/21/19 05/07/19 History Elemental)] Furosemide [Lasix] 20 mg PO DAILY 04/21/19 05/07/19 History Magnesium Oxide [Mag-Ox] 400 mg PO DAILY 04/21/19 05/07/19 History Metoprolol Succinate (ER) [Toprol 25 mg PO DAILY 04/21/19 05/07/19 History XL] Multivitamins, Thera [Multivitamin 1 tab PO DAILY 04/21/19 05/07/19 History (formulary)] NIFEdipine XL [Procardia XL] 60 mg PO HS 04/21/19 05/07/19 History [place]-3 Fatty Acids/Fish Oil [Fish 1 cap PO BID 04/21/19 05/07/19 History Oil 1,000 mg Softgel] Sertraline [Zoloft] 100 mg PO DAILY 04/21/19 05/07/19 History lamoTRIgine [LaMICtal Xr] 100 mg PO DAILY 04/21/19 05/07/19 History Insulin NPH/Reg Insulin 70/30 24 unit SQ AC-SUPPER 05/07/19 05/07/19 History [humuLIN 70/30 VIAL] Insulin NPH/Reg Insulin 70/30 46 unit SQ AC-BRKFST 05/07/19 05/07/19 History [humuLIN 70/30 VIAL] Levothyroxine Sodium [Synthroid] 137 mcg PO DAILY 05/07/19 05/07/19 History Tamsulosin HCl [Flomax] 0.4 mg PO DAILY 05/07/19 05/07/19 History Allergies Allergy/AdvReac Type Severity Reaction Status Date / Time cephalexin [From Keflex] Allergy Unknown Verified 05/07/19 20:21 dexamethasone [From Decadron] Allergy Unknown Verified 05/07/19 20:21 Physical Exam Vitals: Vital Signs Temp Pulse Resp BP Pulse Ox 05/08/19 07:49 98.1 F 69 16 164/66 96 05/08/19 04:00 16 05/08/19 00:00 67 192/74 97 05/07/19 23:45 65 191/74 97 05/07/19 23:30 65 16 183/75 99 05/07/19 23:15 67 177/69 99 05/07/19 23:00 98.0 F 64 18 172/81 99 05/07/19 22:42 63 16 170/71 98 05/07/19 22:32 67 16 175/72 97 05/07/19 22:16 96.8 F L 65 16 180/76 96 05/07/19 20:07 98.4 F 67 16 183/76 97 05/07/19 19:25 16 05/07/19 18:16 98.0 F 63 17 183/69 98 Intake and Output 05/07/19 05/08/19 05/08/19 22:59 06:59 14:59 Intake Total 350 118 Output Total 3 700 Balance 347 -700 118 Intake: IV 350 Oral 118 Output: Urine 700 Estimated Blood Loss 3 Other: Voiding Method Diaper Toilet Toilet # Voids 1 1 Weight 74.049 kg GENERAL DESCRIPTION: Elderly male lying in bed, no distress. No tachypnea or accessory muscle of respiration use. HEENT: Shows Pallor , no scleral icterus. Oral mucous membrane is dry. NECK: Trachea central, no thyromegaly. LUNGS: Unlabored breathing. Clear to auscultation anteriorly. No wheeze or crackle. HEART: S1, S2, regular rate and rhythm. ABDOMEN: Soft, no tenderness , guarding or rigidity EXTREMITIES: Left middle finger is currently dressed with no obvious drainage on the dressing. SKIN: No rash, no masses palpable. NEUROLOGICAL: The patient is awake, alert, oriented x2, mood and affect normal. Results CBC & Chem 7: 05/08/19 07:08 05/08/19 07:08 Labs: Abnormal Lab Results - Last 24 Hours (Table) 05/07/19 05/07/19 05/07/19 Range/Units 20:47 22:24 23:19 WBC (3.8-10.6) k/uL RBC (4.30-5.90) m/uL Hgb (13.0-17.5) gm/dL Hct (39.0-53.0) % BUN 31 H (9-20) mg/dL Creatinine 1.86 H (0.66-1.25) mg/dL Glucose 146 H (74-99) mg/dL POC Glucose (mg/dL) 136 H 189 H (75-99) mg/dL 05/08/19 05/08/19 05/08/19 Range/Units 06:51 07:08 07:08 WBC 11.9 H (3.8-10.6) k/uL RBC 3.94 L (4.30-5.90) m/uL Hgb 11.7 L (13.0-17.5) gm/dL Hct 35.0 L (39.0-53.0) % BUN 31 H (9-20) mg/dL Creatinine 1.83 H (0.66-1.25) mg/dL Glucose 170 H (74-99) mg/dL POC Glucose (mg/dL) 163 H (75-99) mg/dL 05/08/19 Range/Units 11:48 WBC (3.8-10.6) k/uL RBC (4.30-5.90) m/uL Hgb (13.0-17.5) gm/dL Hct (39.0-53.0) % BUN (9-20) mg/dL Creatinine (0.66-1.25) mg/dL Glucose (74-99) mg/dL POC Glucose (mg/dL) 126 H (75-99) mg/dL Microbiology - Last 24 Hours (Table) 05/07/19 21:18 Gram Stain - Preliminary Finger - Left Third Wound Culture - Preliminary 05/07/19 21:18 Anaerobic Culture - Preliminary Finger - Left Third Assessment and Plan Assessment: 1-patient have with the left middle finger infection post surgery for trigger finger release in this patient status post I&D and synovectomy left middle finger with a wound culture culture grew gram-positive cocci the question of possible staph aureus versus Streptococcus 2-patient with cephalexin allergy that would limit the number of antibiotics safe to use (1) Postoperative wound infection Current Visit: Yes Status: Acute Code(s): T81.49XA - INFECTION FOLLOWING A PROCEDURE, OTHER SURGICAL SITE, INIT SNOMED Code(s): 14882264 (2) Suppurative tenosynovitis of flexor tendon of left hand Current Visit: Yes Status: Acute Code(s): M65.142 - OTHER INFECTIVE (TENO)SYNOVITIS, LEFT HAND SNOMED Code(s): 2162198612760966 Plan: 1-vancomycin pharmacy to dose her with a target trough of 15 while watching her kidney function and Vanco trough closely. 2-gentle IV fluid We will follow on clinical condition and cultures to determine his discharge antibiotics thank you for this consultation we will follow the patient along with you Time with Patient: Greater than 30
[2019-05-09] MEDS: LEVOTHYROXINE 137 MCG TAB PO SCH (06:39)
[2019-05-09 06:52] LABS: Basophils # (A) 0.1 k/uL (0-0.2); Basophils % (A) 1 %; Eosinophils # (A) 0.5 k/uL (0-0.7); Eosinophils % (A) 4 %; HGB 13.5 gm/dL (13.0-17.5); Lymphocytes # (A) 1.5 k/uL (1.0-4.8); Lymphocytes % (A) 12 %; MCH 29.5 pg (25.0-35.0); MCHC 32.8 g/dL (31.0-37.0); MCV 89.8 fL (80.0-100.0); Mean Platelet Volume 6.9; Monocytes # (A) 0.6 k/uL (0-1.0); Monocytes % (A) 5 %; Neutrophils % (A) 77 %; Platelet Count 271 k/uL (150-450); RBC 4.56 m/uL (4.30-5.90)
[2019-05-09 07:08] LABS: Calcium 9.4 mg/dL (8.4-10.2); Potassium 4.6 mmol/L (3.5-5.1)
[2019-05-09 07:28] LABS: Glucose,Whole Blood 126 mg/dL (75-99)
[2019-05-09] MEDS: CHOLECALCIFEROL 1,000 UNIT TAB PO SCH ×2 (07:40→21:24)
[2019-05-09] MEDS: TAMSULOSIN 0.4 MG CAP.ER.24H PO SCH (07:40)
[2019-05-09] MEDS: SERTRALINE 100 MG TAB PO SCH (07:40)
[2019-05-09] MEDS: INSULN ASP PRT/INSULIN ASPART 100 UNIT/ML 10 ML VIAL SQ SCH ×3 (07:40→17:14)
[2019-05-09] MEDS: APIXABAN 2.5 MG TABLET PO SCH ×2 (07:40→21:24)
[2019-05-09] MEDS: FUROSEMIDE 20 MG TAB PO SCH (07:41)
[2019-05-09] MEDS: MULTIVITAMINS, THERA 1 EACH TAB PO SCH (07:41)
[2019-05-09] MEDS: METOPROLOL SUCCINATE (ER) 25 MG TAB.ER.24H PO SCH (07:41)
[2019-05-09] MEDS: NON FORMULARY DRUG (Omega-3 Fatty Acids/Fish Oil [Fish Oil 1,000 Mg Softgel] 1 CAP) PO SCH ×2 (07:42→21:22)
[2019-05-09] MEDS: lamoTRIgine 25 MG TAB PO SCH ×2 (07:42→21:25)
[2019-05-09 07:45] LABS: Vancomycin,Random 10.7 ug/mL
[2019-05-09] MEDS: MAGNESIUM OXIDE 400 MG TAB PO SCH (07:45)
[2019-05-09] MEDS: FERROUS SULFATE 325 MG TAB PO SCH ×2 (07:46→21:23)
[2019-05-09] MEDS ORDERED: VANCOMYCIN 1,250 MG in SODIUM CHLORIDE 0.9% 250 ML IVPB ONE (10:00)
[2019-05-09 12:03] LABS: Glucose,Whole Blood 115 mg/dL (75-99)
[2019-05-09] MEDS: LACTATED RINGERS 1,000 ML IV SCH (12:03)
[2019-05-09 17:14] LABS: Glucose,Whole Blood 177 mg/dL (75-99)
--- NOTE | 2019-05-09 19:05 | P.PN ---
Subjective Progress Note Date: 05/09/19 Chart reviewed. Interval events discussed with RN. IV extravasated and was removed. Have not been able to establish new access yet. The patient reports minimal pain. No difficulty moving the finger. Denies nausea, vomiting or other specific concerns. Objective - Vital Signs Vital signs: Vital Signs Temp 97.7 F 05/09/19 07:05 Pulse 65 05/09/19 07:05 Resp 12 05/09/19 07:05 BP 161/68 05/09/19 07:05 Pulse Ox 96 05/09/19 07:05 Intake & Output 05/08/19 05/09/19 05/09/19 18:59 06:59 18:59 Intake Total 354 Output Total 300 Balance 354 -300 Intake: Oral 354 Output: Urine 300 Other: Voiding Method Toilet Toilet Toilet # Voids 1 2 - Exam The dressings were removed. No erythema or drainage. Good interval decrease in edema. No sign of pain with active or passive flexion and extension. Residual ywey-bp-oasz deficit of ~2 cm but overall better motion than yesterday. No pain with palpation of the digit or along the flexor sheath in the palm. - Labs CBC & Chem 7: 05/09/19 06:19 05/09/19 06:19 Labs: Abnormal Lab Results - Last 24 Hours (Table) 05/08/19 05/09/19 05/09/19 Range/Units 17:04 06:19 06:19 WBC 13.0 H (3.8-10.6) k/uL Neutrophils # 10.0 H (1.3-7.7) k/uL BUN 33 H (9-20) mg/dL Creatinine 1.87 H (0.66-1.25) mg/dL Glucose 124 H (74-99) mg/dL POC Glucose (mg/dL) 131 H (75-99) mg/dL 05/09/19 05/09/19 Range/Units 07:22 12:01 WBC (3.8-10.6) k/uL Neutrophils # (1.3-7.7) k/uL BUN (9-20) mg/dL Creatinine (0.66-1.25) mg/dL Glucose (74-99) mg/dL POC Glucose (mg/dL) 126 H 115 H (75-99) mg/dL Assessment and Plan Assessment: 1. Postoperative day #2 status post irrigation and debridement of left middle finger with extensor tenosynovectomy 2. Insulin-dependent diabetes mellitus Plan: The finger shows continued clinical improvement. New dressings were applied. Preliminary cultures show rare gram-positive cocci in pairs - final results still pending Continue active and passive digital range of motion. Based on the intraoperative appearance of the finger, the patient may be a candidate for outpatient treatment with oral antibiotics but will await further recommendations by the infectious disease team. Encourage ambulation for DVT prophylaxis. Continue PRN pain management. Until IV access is reestablished, recommend continuing the patient on oral antibiotics. Will begin BID augmentin.
[2019-05-09 20:23] LABS: Glucose,Whole Blood 169 mg/dL (75-99)
--- NOTE | 2019-05-09 21:05 | PN ---
PROGRESS NOTE DATE OF SERVICE: 05/09/2019 This 88-year-old gentleman who is extremely hard of hearing except very minimally to the right ear, was admitted after irrigation and debridement of the left middle finger. The patient is being closely monitored. The patient is started on broad spectrum IV antibiotics. No chest pain. No palpitations. No fever. Cultures are negative so far. White count is 13. Blood sugars are slightly elevated. Creatinine is 1.87, which is rather stable. PHYSICAL EXAM: The patient is extremely hard of hearing, conscious. Pulse 58, blood pressure 140/80, respiration 12, temperature 98 degrees, pulse ox 94% on room air. HEENT: Conjunctivae normal. Oral mucosa moist. NECK: No jugular venous distention. No lymph node enlargement. CARDIOVASCULAR: S1, S2. RESPIRATORY: Diminished breath sounds at the bases. No rhonchi, no crackles. ABDOMEN: Soft, nontender. LEGS: No swelling. NERVOUS SYSTEM: No focal deficits. Examination of the left finger: Status post surgery. LABS: WBC 13. Otherwise, creatinine 1.87. ASSESSMENT: 1. Status post irrigation and debridement of the left middle finger wound with flexor tenosynovectomy for left middle finger postoperative wound infection with suppurative flexor tenosynovitis. 2. Coronary artery disease, coronary artery bypass grafting. 3. Status post TUR, cystoscopy for symptomatic benign prostatic hypertrophy. 4. History of atrial fibrillation paroxysmal. 5. Diabetes mellitus type 2. 6. Hypertension. 7. History of hyperlipidemia. 8. History of degenerative joint disease. 9. History of cleft palate and resulting dysarthria. 10.History of hard of hearing. 11.Chronic kidney stage 3, diabetic nephropathy and hypertensive nephrosclerosis. 12.Increased WBC. 13.Anemia, normocytic anemia of chronic disease. RECOMMENDATIONS AND DISCUSSION: Recommend to continue current medications, symptomatic treatment, continue to monitor. Continue with antibiotics. Continue the rest of medication. Monitor electrolytes closely. Guarded prognosis because of multiple complex medical issues. Further recommendations to follow. MMODL / IJN: [id number] /
[2019-05-09] MEDS: AMOXIC-POT CLAV 500-125 MG 1 EACH TAB PO SCH (21:23)
[2019-05-09] MEDS: ATORVASTATIN 80 MG TAB PO SCH (21:24)
--- NOTE | 2019-05-09 21:50 | PN ---
PROGRESS NOTE DATE OF SERVICE: 05/09/2019 REASON FOR FOLLOWUP: Left middle finger tenosynovitis. INTERVAL HISTORY: The patient was seen on rounds this afternoon. The patient has been afebrile, has been breathing comfortably. Denies having any chest pain or cough. No nausea, vomiting. No abdominal pain or any worsening pain to the left hand area. PHYSICAL EXAMINATION: Blood pressure 139/57 with a pulse of 62, temperature 97.7, 97% on room air. General description is an elderly male up in the chair in no distress. Respiratory system: Unlabored breathing, clear to auscultation anteriorly. Heart S1, S2. Regular rate and rhythm. Abdomen soft, no tenderness. Left middle finger incision looks clean. No redness or any drainage. LABS: Blood culture so far negative. White cell elevated 13,000. DIAGNOSTIC IMPRESSION AND PLAN: Patient with left 1eft middle finger tenosynovitis status post I and D. Culture has been negative so far. Patient was on IV vancomycin. Did have a problem with the IV access. Antibiotic has been adjusted to Augmentin. Will monitor the patient closely and continue supportive care. MMODL / IJN: [id number] /
[2019-05-10 02:22] VITALS: TEMP 98.3
[2019-05-10] MEDS: LEVOTHYROXINE 137 MCG TAB PO SCH (05:06)
[2019-05-10] MEDS: LACTATED RINGERS 1,000 ML IV SCH (06:41)
[2019-05-10 06:58] LABS: Glucose,Whole Blood 120 mg/dL (75-99)
[2019-05-10] MEDS: INSULN ASP PRT/INSULIN ASPART 100 UNIT/ML 10 ML VIAL SQ SCH ×2 (07:21→12:04)
[2019-05-10] MEDS: APIXABAN 2.5 MG TABLET PO SCH (07:21)
[2019-05-10] MEDS: SERTRALINE 100 MG TAB PO SCH (07:21)
[2019-05-10] MEDS: FERROUS SULFATE 325 MG TAB PO SCH (07:21)
[2019-05-10] MEDS: MAGNESIUM OXIDE 400 MG TAB PO SCH (07:22)
[2019-05-10] MEDS: AMOXIC-POT CLAV 500-125 MG 1 EACH TAB PO SCH (07:22)
[2019-05-10] MEDS: TAMSULOSIN 0.4 MG CAP.ER.24H PO SCH (07:22)
[2019-05-10] MEDS: METOPROLOL SUCCINATE (ER) 25 MG TAB.ER.24H PO SCH (07:22)
[2019-05-10] MEDS: MULTIVITAMINS, THERA 1 EACH TAB PO SCH (07:22)
[2019-05-10] MEDS: FUROSEMIDE 20 MG TAB PO SCH (07:22)
[2019-05-10] MEDS: CHOLECALCIFEROL 1,000 UNIT TAB PO SCH (07:22)
[2019-05-10] MEDS: lamoTRIgine 25 MG TAB PO SCH (07:22)
[2019-05-10] MEDS: NON FORMULARY DRUG (Omega-3 Fatty Acids/Fish Oil [Fish Oil 1,000 Mg Softgel] 1 CAP) PO SCH (07:23)
[2019-05-10 07:29] LABS: Basophils # (A) 0.1 k/uL (0-0.2); Basophils % (A) 1 %; Eosinophils # (A) 0.6 k/uL (0-0.7); Eosinophils % (A) 5 %; HGB 12.9 gm/dL (13.0-17.5); Lymphocytes # (A) 1.3 k/uL (1.0-4.8); Lymphocytes % (A) 11 %; MCH 30.2 pg (25.0-35.0); MCHC 33.9 g/dL (31.0-37.0); MCV 88.9 fL (80.0-100.0); Mean Platelet Volume 7.9; Monocytes # (A) 0.7 k/uL (0-1.0); Monocytes % (A) 6 %; Neutrophils # (A) 9.3 k/uL (1.3-7.7); Neutrophils % (A) 76 %; Platelet Count 239 k/uL (150-450); RBC 4.28 m/uL (4.30-5.90); RDW 12.9 % (11.5-15.5); WBC 12.2 k/uL (3.8-10.6)
[2019-05-10 07:39] LABS: Calcium 9.4 mg/dL (8.4-10.2); Potassium 4.8 mmol/L (3.5-5.1)
[2019-05-10 07:44] LABS: Vancomycin,Random 7.5 ug/mL
[2019-05-10] MEDS ORDERED: VANCOMYCIN 1,250 MG in SODIUM CHLORIDE 0.9% 250 ML IVPB ONE (08:00)
[2019-05-10] MEDS ORDERED: VANCOMYCIN 1,250 MG in SODIUM CHLORIDE 0.9% 250 ML IVPB SCH (10:00)
[2019-05-10 11:56] LABS: Glucose,Whole Blood 88 mg/dL (75-99)
[2019-05-10 12:30] VITALS: BP 188/70; PULSE 72; RESP 12
--- NOTE | 2019-05-10 14:52 | P.PN ---
Subjective Progress Note Date: 05/10/19 Chart reviewed. The patient states that there is not really any pain. He is very eager to be discharged. He feels that the finger is doing very well and denies any concerns. Objective - Vital Signs Vital signs: Vital Signs Temp 98.3 F 05/10/19 07:29 Pulse 72 05/10/19 07:29 Resp 12 05/10/19 07:29 BP 188/70 05/10/19 07:29 Pulse Ox 94 L 05/10/19 07:29 Intake & Output 05/09/19 05/10/19 05/10/19 18:59 06:59 18:59 Intake Total 1070 Balance 1070 Intake: Oral 1070 Other: Voiding Method Toilet Toilet # Voids 3 2 - Exam The dressings were removed. Mild residual rubor in the finger but no erythema and minimal edema. He is now able to make a full fist without iqjo-mh-jwcy deficit and demonstrates no sign of pain with active motion. No pain with palpation of the digit or along the flexor sheath in the palm. - Labs CBC & Chem 7: 05/10/19 06:41 05/10/19 06:41 Labs: Abnormal Lab Results - Last 24 Hours (Table) 05/09/19 05/09/19 05/10/19 Range/Units 17:10 20:21 06:41 WBC 12.2 H (3.8-10.6) k/uL RBC 4.28 L (4.30-5.90) m/uL Hgb 12.9 L (13.0-17.5) gm/dL Hct 38.0 L (39.0-53.0) % Neutrophils # 9.3 H (1.3-7.7) k/uL BUN (9-20) mg/dL Creatinine (0.66-1.25) mg/dL Glucose (74-99) mg/dL POC Glucose (mg/dL) 177 H 169 H (75-99) mg/dL 05/10/19 05/10/19 Range/Units 06:41 06:52 WBC (3.8-10.6) k/uL RBC (4.30-5.90) m/uL Hgb (13.0-17.5) gm/dL Hct (39.0-53.0) % Neutrophils # (1.3-7.7) k/uL BUN 39 H (9-20) mg/dL Creatinine 1.96 H (0.66-1.25) mg/dL Glucose 118 H (74-99) mg/dL POC Glucose (mg/dL) 120 H (75-99) mg/dL Microbiology - Last 24 Hours (Table) 05/07/19 21:18 Gram Stain - Final Finger - Left Third Wound Culture - Final Assessment and Plan Assessment: 1. Postoperative day #3 status post irrigation and debridement of left middle finger with flexor tenosynovectomy 2. Insulin-dependent diabetes mellitus (1) Postoperative wound infection Current Visit: Yes Status: Acute Code(s): T81.49XA - INFECTION FOLLOWING A PROCEDURE, OTHER SURGICAL SITE, INIT SNOMED Code(s): 47192904 (2) Suppurative tenosynovitis of flexor tendon of left hand Current Visit: Yes Status: Acute Code(s): M65.142 - OTHER INFECTIVE (TENO)SYNOVITIS, LEFT HAND SNOMED Code(s): 9357129588993586 Plan: Clinically, the finger shows excellent progress. Band-Aids were applied over the wounds. Final cultures show only normal skin sara. Discussed with infectious disease: the patient will be discharged on oral antib iotics. Continue active and passive digital range of motion. Plan for discharge today.
--- NOTE | 2019-05-10 15:07 | P.DS ---
Providers Date of admission: 05/07/19 17:47 Expected date of discharge: 05/10/19 Attending physician: Sean Germain DO Consults: 05/07/19 19:07 Consult Physician Routine Consulting Provider: Pablo Herrera Consult Reason/Comments: medical management Do you want consulting provider notified?: Yes 05/07/19 22:30 Consult Physician Routine Consulting Provider: Itzel Piper Consult Reason/Comments: Left middle finger flexor tenosynovitis Do you want consulting provider notified?: Yes, Notify in am Primary care physician: Stated None - Discharge Diagnosis(es) (1) Postoperative wound infection Current Visit: Yes Status: Acute (2) Suppurative tenosynovitis of flexor tendon of left hand Current Visit: Yes Status: Acute Hospital Course: The patient is a pleasant 88-year-old male who was diagnosed with a postop wound infection and flexor tenosynovitis status post recent left middle trigger finger release. He underwent surgical debridement on 05/07/2019. Please see operative report for full details of the procedure. He was admitted for continued monitoring and empiric IV antibiotics. Internal medicine and infectious disease was consulted. Intraoperative cultures show normal skin sara. At this time, the patient's pain is minimal and well controlled. He is tolerating a regular diet. Vital signs are stable. He is deemed fit for discharge home. The clinical presentation is most consistent with a simple postoperative infection, rather than a true suppurative flexor tenosynovitis, given the appearance of the patient's finger and his rapid clinical improvement after surgery. He will be discharged home on a two week course of BID Augmentin. Procedures: Irrigation and debridement of left middle finger with flexor tenosynovectomy Patient Condition at Discharge: Stable Plan - Discharge Summary New Discharge Prescriptions: New Amoxic-Pot Clav 500-125 mg [Augmentin 500-125 mg] 1 tab PO BID #28 tab No Action Cholecalciferol [Vitamin D3 (25 Mcg = 1000 Iu)] 1,000 unit PO BID NIFEdipine XL [Procardia XL] 60 mg PO HS Metoprolol Succinate (ER) [Toprol XL] 25 mg PO DAILY Ferrous Sulfate [Iron (65 MG Elemental)] 65 mg PO BID Atorvastatin [Lipitor] 80 mg PO HS Apixaban [Eliquis] 2.5 mg PO BID lamoTRIgine [LaMICtal Xr] 100 mg PO DAILY Sertraline [Zoloft] 100 mg PO DAILY Multivitamins, Thera [Multivitamin (formulary)] 1 tab PO DAILY Magnesium Oxide [Mag-Ox] 400 mg PO DAILY Furosemide [Lasix] 20 mg PO DAILY [place]-3 Fatty Acids/Fish Oil [Fish Oil 1,000 mg Softgel] 1 cap PO BID Donepezil HCl [Aricept] 10 mg PO HS Levothyroxine Sodium [Synthroid] 137 mcg PO DAILY Insulin NPH/Reg Insulin 70/30 [humuLIN 70/30 VIAL] 46 unit SQ AC-BRKFST Insulin NPH/Reg Insulin 70/30 [humuLIN 70/30 VIAL] 24 unit SQ AC-SUPPER Tamsulosin HCl [Flomax] 0.4 mg PO DAILY Discharge Medication List Apixaban [Eliquis] 2.5 mg PO BID 04/21/19 [History] Atorvastatin [Lipitor] 80 mg PO HS 04/21/19 [History] Cholecalciferol [Vitamin D3 (25 Mcg = 1000 Iu)] 1,000 unit PO BID 04/21/19 [History] Donepezil HCl [Aricept] 10 mg PO HS 04/21/19 [History] Ferrous Sulfate [Iron (65 MG Elemental)] 65 mg PO BID 04/21/19 [History] Furosemide [Lasix] 20 mg PO DAILY 04/21/19 [History] Magnesium Oxide [Mag-Ox] 400 mg PO DAILY 04/21/19 [History] Metoprolol Succinate (ER) [Toprol XL] 25 mg PO DAILY 04/21/19 [History] Multivitamins, Thera [Multivitamin (formulary)] 1 tab PO DAILY 04/21/19 [History] NIFEdipine XL [Procardia XL] 60 mg PO HS 04/21/19 [History] [place]-3 Fatty Acids/Fish Oil [Fish Oil 1,000 mg Softgel] 1 cap PO BID 04/21/19 [History] Sertraline [Zoloft] 100 mg PO DAILY 04/21/19 [History] lamoTRIgine [LaMICtal Xr] 100 mg PO DAILY 04/21/19 [History] Insulin NPH/Reg Insulin 70/30 [humuLIN 70/30 VIAL] 24 unit SQ AC-SUPPER 05/07/19 [History] Insulin NPH/Reg Insulin 70/30 [humuLIN 70/30 VIAL] 46 unit SQ AC-BRKFST 05/07/19 [History] Levothyroxine Sodium [Synthroid] 137 mcg PO DAILY 05/07/19 [History] Tamsulosin HCl [Flomax] 0.4 mg PO DAILY 05/07/19 [History] Amoxic-Pot Clav 500-125 mg [Augmentin 500-125 mg] 1 tab PO BID #28 tab 05/10/19 [Rx] Follow up Appointment(s)/Referral(s): [facility] Visiting Nurse, [NON-STAFF] - Sean Germain DO [Medical Doctor] - 1 Week Activity/Diet/Wound Care/Special Instructions: Orthopedic Postoperative Discharge Instructions Elevate the left hand & wrist. Use aysd-wsh-oxwlyxo pain medication as directed. No strenuous/forceful use of the hand. No lifting/gripping/pushing/pulling. Ok to use hand for light activities (eating/dressing/etc). Dressings should be changed daily. Remove dressings to shower and for hand hygiene. Ok to get incision wet and wash with soap and water. Re-cover incisions with a band-aids until no longer draining. Do not soak incisions. No lotions or ointments on incisions. Perform finger tdyul-az-ntcqwo exercises several times daily. No squeeze balls. Call as soon as possible to schedule a follow-up appointment with Dr. Germain to be seen in approximately 7 days. Discharge Disposition: HOME SELF-CARE
--- NOTE | 2019-05-10 16:28 | PN ---
PROGRESS NOTE DATE OF SERVICE: 05/10/2019. REASON FOR FOLLOWUP: Left hand infection. INTERVAL HISTORY: The patient is currently afebrile. Patient is breathing comfortably. The patient denies having any chest pain. No shortness of breath or cough. PHYSICAL EXAMINATION: VITAL SIGNS: Blood pressure is 159/77, pulse of 72, temperature of 98.3. She is 94% on room air. GENERAL DESCRIPTION is an elderly male lying in bed in no distress. RESPIRATORY SYSTEM: Unlabored breathing. Clear to auscultation anteriorly. CARDIOVASCULAR: Heart S1, S2. Regular rate and rhythm. ABDOMEN soft, no tenderness. His left hand wound currently with no swelling, no redness or any drainage. LABS: White count 12.2, creatinine 1.96. Wound culture so far negative. DIAGNOSTIC IMPRESSION AND PLAN: Patient admitted to the hospital with concern for possible left middle finger and palm area surgical site infection. Patient is status post drainage. Culture has been negative on Augmentin. May consider continue for short course. Plan of care discussed with the surgeon. Continue supportive care. MMODL / IJN: [id number] /
--- NOTE | 2019-05-10 19:55 | PN ---
PROGRESS NOTE DATE OF SERVICE: 05/10/2019 This 88-year-old gentleman who was admitted with a left middle finger infection is being closely monitored. No chest pain. No palpitations. No fever. EXAM: Alert and oriented x3. Pulse 72, blood pressure 188/70, respiration 12, temperature 98.2, pulse ox 94% on room air HEENT: Conjunctivae normal. Oral mucosa moist. NECK: No jugular venous distention. No lymph node enlargement. CARDIOVASCULAR: S1, S2. RESPIRATORY: Diminished breath sounds at the bases. ABDOMEN: Soft, nontender. LEGS: No edema, no swelling. Examination of the hand is status post surgery. LAB STUDIES: WBC 12.2 and creatinine is 1.96. ASSESSMENT: 1. Status post irrigation, debridement of the left middle finger with flexor tenosynovitis for left middle finger possible acute wound infection with suppurative flexor tenosynovitis. 2. Coronary artery disease, coronary artery bypass grafting. 3. Status post TUR, cystoscopy, and symptomatic benign prostatic hypertrophy. 4. Possible chronic kidney stage III. 5. History of atrial fibrillation, paroxysmal. 6. Diabetes mellitus type 2. 7. Hypertension. 8. Hyperlipidemia. 9. History of degenerative joint disease. 10.History of cleft palate and resulting dysarthria. 11.History of hard of hearing. 12.Increased WBC. 13.Anemia, normocytic anemia of chronic disease. RECOMMENDATIONS AND DISCUSSION: Recommend to continue current medications, continue to monitor, symptomatic treatment. Otherwise, at this time I recommend resume the home medications, closely follow with primary physician in the outpatient setting. Otherwise, further recommendations to follow. Recommendations per orthopedic surgery. MMODL / IJN: [id number] /
== END 2019-05-10 15:47 | disposition home health service (06) | DRG 857 ==
LOC: 4SSUR 17:47
PROVIDERS: ADMIT Orthopaedic Surgery; ATTEND Orthopaedic Surgery
PROC: 0LB80ZZ Excision of Left Hand Tendon, Open Approach (ICD-10-PCS; principal; 2019-05-07 21:00)
DX: T81.41XA Infection following a procedure, superficial incisional surgical site, initial encounter (principal); N17.9 Acute kidney failure, unspecified; M65.142 Other infective (teno)synovitis, left hand; E11.22 Type 2 diabetes mellitus with diabetic chronic kidney disease; I48.0 Paroxysmal atrial fibrillation; N18.3 Chronic kidney disease, stage 3 (moderate); D63.8 Anemia in other chronic diseases classified elsewhere; E78.5 Hyperlipidemia, unspecified; H91.90 Unspecified hearing loss, unspecified ear; I12.9 Hypertensive chronic kidney disease with stage 1 through stage 4 chronic kidney disease, or unspecified chronic kidney disease; I25.10 Atherosclerotic heart disease of native coronary artery without angina pectoris; M19.91 Primary osteoarthritis, unspecified site; N40.0 Benign prostatic hyperplasia without lower urinary tract symptoms; R47.1 Dysarthria and anarthria; D72.829 Elevated white blood cell count, unspecified; Z79.01 Long term (current) use of anticoagulants; Z79.4 Long term (current) use of insulin; Z79.890 Hormone replacement therapy; Z79.899 Other long term (current) drug therapy; Z88.1 Allergy status to other antibiotic agents; Z88.8 Allergy status to other drugs, medicaments and biological substances; Z95.1 Presence of aortocoronary bypass graft; Z90.79 Acquired absence of other genital organ(s); Z87.730 Personal history of (corrected) cleft lip and palate; Z82.49 Family history of ischemic heart disease and other diseases of the circulatory system; Z83.3 Family history of diabetes mellitus
CPT/HCPCS: 80048; 80202; 85025; 85027; 87070; 87075; 87205

== ENCOUNTER 2022-01-21 20:22 | Inpatient (IN) | payer MEDICARE ==
[2022-01-21] MEDS ORDERED: SODIUM CHLORIDE 0.9% 1,000 ML IV STA (22:19)
--- NOTE | 2022-01-21 23:04 | ED ---
General Adult HPI - General Chief complaint: Extremity Problem,Nontraumatic Stated complaint: Feet Swelling, Weakness Time Seen by Provider: 01/21/22 21:58 Source: patient, RN notes reviewed, old records reviewed Mode of arrival: wheelchair Limitations: altered mental status - History of Present Illness Initial comments: Patient is an 89-year-old male with past medical history remarkable for atrial fibrillation, heart failure, triple bypass, dementia, renal disease who lives with his daughter presents emergency department after having multiple days of increased weakness, bilateral lower extremity edema. Patient is extremely hard of hearing and has difficult speech to understand which is chronic for the patient. Patient's daughter initially said confused, however she says it seems to be more related to him being fatigued. He denies any significant cough. Denies any nausea or vomiting. Denies any diarrhea. Patient denies any chest pain. Denies shortness of breath. Endorses lower extremity edema. His no longer on Lasix. No known sick contacts. Was vaccinated for COVID-19. Presents for further evaluation of this time over concern for possible infection. No frequent history of UTIs. Denies any abdominal pain.Denies any known trauma or falls. - Related Data Home Medications Medication Instructions Recorded Confirmed Apixaban [Eliquis] 2.5 mg PO BID 04/21/19 05/07/19 Atorvastatin [Lipitor] 80 mg PO HS 04/21/19 05/07/19 Cholecalciferol [Vitamin D3 (25 1,000 unit PO BID 04/21/19 05/07/19 Mcg = 1000 Iu)] Donepezil HCl [Aricept] 10 mg PO HS 04/21/19 05/07/19 Ferrous Sulfate [Iron (65 MG 65 mg PO BID 04/21/19 05/07/19 Elemental)] Furosemide [Lasix] 20 mg PO DAILY 04/21/19 05/07/19 Magnesium Oxide [Mag-Ox] 400 mg PO DAILY 04/21/19 05/07/19 Metoprolol Succinate (ER) [Toprol 25 mg PO DAILY 04/21/19 05/07/19 XL] Multivitamins, Thera [Multivitamin 1 tab PO DAILY 04/21/19 05/07/19 (formulary)] NIFEdipine XL [Procardia XL] 60 mg PO HS 04/21/19 05/07/19 [place]-3 Fatty Acids/Fish Oil [Fish 1 cap PO BID 04/21/19 05/07/19 Oil 1,000 mg Softgel] Sertraline [Zoloft] 100 mg PO DAILY 04/21/19 05/07/19 lamoTRIgine [LaMICtal Xr] 100 mg PO DAILY 04/21/19 05/07/19 Insulin NPH/Reg Insulin 70/30 24 unit SQ AC-SUPPER 05/07/19 05/07/19 [humuLIN 70/30 VIAL] Insulin NPH/Reg Insulin 70/30 46 unit SQ AC-BRKFST 05/07/19 05/07/19 [humuLIN 70/30 VIAL] Levothyroxine Sodium [Synthroid] 137 mcg PO DAILY 05/07/19 05/07/19 Tamsulosin HCl [Flomax] 0.4 mg PO DAILY 05/07/19 05/07/19 Previous Rx's Medication Instructions Recorded Amoxic-Pot Clav 500-125 mg 1 tab PO BID #28 tab 05/10/19 [Augmentin 500-125 mg] Allergies Allergy/AdvReac Type Severity Reaction Status Date / Time cephalexin [From Keflex] Allergy Unknown Verified 05/07/19 20:21 dexamethasone [From Decadron] Allergy Unknown Verified 05/07/19 20:21 Review of Systems ROS Statement: Those systems with pertinent positive or pertinent negative responses have been documented in the HPI. Review of Systems: CONST: Denies fever EYES: Denies blurry vision ENT: Denies nasal congestion C/V: Denies Chest pain RESP: Denies shortness of breath GI: Denies abdominal pain : Denies dysuria SKIN: Denies rash. MSK: Denies joint pain. NEURO: Denies headache ROS Other: All systems not noted in ROS Statement are negative. Past Medical History Past Medical History: Atrial Fibrillation, Diabetes Mellitus, Hearing Disorder / Deafness, Hyperlipidemia, Hypertension, Osteoarthritis (OA), Renal Disease Additional Past Medical History / Comment(s): ulcer years ago, has cleft palate & is very hard to understand, never learned to read, ramírez removed 05/[address] Edward, hearing loss History of Any Multi-Drug Resistant Organisms: None Reported Past Surgical History: Coronary Bypass/CABG, Heart Catheterization Additional Past Surgical History / Comment(s): triple bypass 20 yrs. ago, trigger finger surg. today on left pinky & middle fingers-current bandages on Past Anesthesia/Blood Transfusion Reactions: No Reported Reaction Past Psychological History: No Psychological Hx Reported Smoking Status: Never smoker Past Alcohol Use History: None Reported Past Drug Use History: None Reported - Past Family History Daughter(s) Family Medical History: Hypertension General Exam - General Exam Comments Initial Comments: General: Appears in no acute distress. Resting comfortably on the stretcher. HEAD: Normal with no signs of head trauma. EYES: PERRLA, EOMI, conjunctiva normal, no discharge. ENT: Hearing grossly intact, normal oropharynx. RESPIRATORY: Crackles in bilateral lung arnett. No hypoxia. No increased work of breathing. C/V: Irregular rate and rhythm. S1 and S2 auscultated, 1-2+ symmetrical pitting edema bilateral or extremities up to the level of the lower calf/upper ankle, peripheral pulses 2+ and intact throughout ABD: Abd is soft, nontender, nondistended EXT: Normal range of motion, no obvious deformity SKIN: No rashes or lesions observed on exposed skin. NEURO: Alert and oriented 3. No focal deficits. Appears to be at his baseline per patient's daughter. Hard of hearing. Limitations: altered mental status Course Vital Signs 01/21/22 01/22/22 21:11 00:00 Temperature 97.5 F L Pulse Rate 95 100 Respiratory 15 20 Rate Blood Pressure 126/72 144/89 O2 Sat by Pulse 96 95 Oximetry Medical Decision Making - Medical Decision Making Based on the patient's presentation and physical exam, I'm concerned for possible cardiopulmonary etiology for the patient's symptoms including infection, heart failure. We will obtain a broad workup including urinalysis, cardiac labs. Covid and Ramírez will be tested for. Due to the patient being on blood thinners and his increased weakness we will obtain a CT brain as well. Chest x-ray will be obtained. IV fluids were initially ordered but then held prior to receiving any over the concern for possible heart failure exacerbation. Patient did not receive any IV fluids. Vital signs are within normal limits. Patient's daughter and patient are in agreement this plan. EKG shows no signs of acute ischemia. CT brain shows no acute intracranial process. Mild hydrocephalus. Chest x-ray reveals bilateral pulmonary infiltrates, with differential including CHF versus pneumonia.Patient's laboratory studies are remarkable for a chronic anemia which is Stable. Patient has an elevated BUN and creatinine with a history of CK D. Likely progressively worsened. Patient's hypermagnesemic acute complaints. Troponin is mildly elevated to 0.043. BNP is 47,000. Covid is negative. Urinalysis is unremarkable. On reevaluation, patient's vital sensory within normal limits. No respiratory distress. I discussed results of the patient's as well as his daughter. I would like to admit him to the hospital for diuresis due to concern for congestive heart failure exacerbation. There were any agreement this plan. His no infectious signs at this time including no productive cough, no fevers. No respiratory distress. There is no leukocytosis. Lactic acid is within normal limits. This seems to be a congestive heart failure exacerbation. Will trend the troponin. His initial elevated troponin is likely secondary to his heart failure exacerbation. He is asymptomatic. Will be given an aspirin. Will continue home Eliquis. We'll continue to hold IV fluids. Patient started on IV Lasix. Echo was ordered. Cardiology was consulted. I discussed the case with the admitting physician, Dr. Lakhani who was covering for Dr. Herrera who was off. She accepted the patient. Patient was admitted in stable condition. - Lab Data Result diagrams: 01/21/22 23:00 01/21/22 23:00 Lab Results 01/21/22 01/21/22 01/21/22 Range/Units 23:00 23:00 23:00 WBC 10.1 (3.8-10.6) k/uL RBC 3.88 L (4.30-5.90) m/uL Hgb 10.8 L (13.0-17.5) gm/dL Hct 34.0 L (39.0-53.0) % MCV 87.6 (80.0-100.0) fL MCH 27.8 (25.0-35.0) pg MCHC 31.7 (31.0-37.0) g/dL RDW 14.4 (11.5-15.5) % Plt Count 278 (150-450) k/uL MPV 8.5 Neutrophils % 78 % Lymphocytes % 10 % Monocytes % 6 % Eosinophils % 3 % Basophils % 1 % Neutrophils # 7.9 H (1.3-7.7) k/uL Lymphocytes # 1.0 (1.0-4.8) k/uL Monocytes # 0.6 (0-1.0) k/uL Eosinophils # 0.3 (0-0.7) k/uL Basophils # 0.1 (0-0.2) k/uL Hypochromasia Marked PT 13.4 H (9.0-12.0) sec INR 1.3 H (<1.2) APTT 28.4 (22.0-30.0) sec Sodium 139 (137-145) mmol/L Potassium 4.9 (3.5-5.1) mmol/L Chloride 97 L (98-107) mmol/L Carbon Dioxide 29 (22-30) mmol/L Anion Gap 13 mmol/L BUN 40 H (9-20) mg/dL Creatinine 2.54 H (0.66-1.25) mg/dL Est GFR (CKD-EPI)AfAm 25 (>60 ml/min/1.73 sqM) Est GFR (CKD-EPI)NonAf 22 (>60 ml/min/1.73 sqM) Glucose 103 H (74-99) mg/dL Plasma Lactic Acid Davis (0.7-2.0) mmol/L Calcium 8.9 (8.4-10.2) mg/dL Magnesium 3.0 H (1.6-2.3) mg/dL Total Bilirubin 0.5 (0.2-1.3) mg/dL AST 135 H (17-59) U/L ALT 87 H (4-49) U/L Alkaline Phosphatase 208 H (38-126) U/L Troponin I (0.000-0.034) ng/mL NT-Pro-B Natriuret Pep pg/mL Total Protein 6.7 (6.3-8.2) g/dL Albumin 3.9 (3.5-5.0) g/dL Urine Color Urine Appearance (Clear) Urine pH (5.0-8.0) Ur Specific Wheeler (1.001-1.035) Urine Protein (Negative) Urine Glucose (UA) (Negative) Urine Ketones (Negative) Urine Blood (Negative) Urine Nitrite (Negative) Urine Bilirubin (Negative) Urine Urobilinogen (<2.0) mg/dL Ur Leukocyte Esterase (Negative) Urine RBC (0-5) /hpf Urine WBC (0-5) /hpf Hyaline Casts (0-2) /lpf Urine Mucus (None) /hpf Coronavirus (PCR) (Not Detectd) 01/21/22 01/21/22 01/21/22 Range/Units 23:00 23:00 23:00 WBC (3.8-10.6) k/uL RBC (4.30-5.90) m/uL Hgb (13.0-17.5) gm/dL Hct (39.0-53.0) % MCV (80.0-100.0) fL MCH (25.0-35.0) pg MCHC (31.0-37.0) g/dL RDW (11.5-15.5) % Plt Count (150-450) k/uL MPV Neutrophils % % Lymphocytes % % Monocytes % % Eosinophils % % Basophils % % Neutrophils # (1.3-7.7) k/uL Lymphocytes # (1.0-4.8) k/uL Monocytes # (0-1.0) k/uL Eosinophils # (0-0.7) k/uL Basophils # (0-0.2) k/uL Hypochromasia PT (9.0-12.0) sec INR (<1.2) APTT (22.0-30.0) sec Sodium (137-145) mmol/L Potassium (3.5-5.1) mmol/L Chloride (98-107) mmol/L Carbon Dioxide (22-30) mmol/L Anion Gap mmol/L BUN (9-20) mg/dL Creatinine (0.66-1.25) mg/dL Est GFR (CKD-EPI)AfAm (>60 ml/min/1.73 sqM) Est GFR (CKD-EPI)NonAf (>60 ml/min/1.73 sqM) Glucose (74-99) mg/dL Plasma Lactic Acid Davis 1.5 (0.7-2.0) mmol/L Calcium (8.4-10.2) mg/dL Magnesium (1.6-2.3) mg/dL Total Bilirubin (0.2-1.3) mg/dL AST (17-59) U/L ALT (4-49) U/L Alkaline Phosphatase (38-126) U/L Troponin I 0.043 H* (0.000-0.034) ng/mL NT-Pro-B Natriuret Pep 43320 pg/mL Total Protein (6.3-8.2) g/dL Albumin (3.5-5.0) g/dL Urine Color Urine Appearance (Clear) Urine pH (5.0-8.0) Ur Specific Wheeler (1.001-1.035) Urine Protein (Negative) Urine Glucose (UA) (Negative) Urine Ketones (Negative) Urine Blood (Negative) Urine Nitrite (Negative) Urine Bilirubin (Negative) Urine Urobilinogen (<2.0) mg/dL Ur Leukocyte Esterase (Negative) Urine RBC (0-5) /hpf Urine WBC (0-5) /hpf Hyaline Casts (0-2) /lpf Urine Mucus (None) /hpf Coronavirus (PCR) (Not Detectd) 01/21/22 01/22/22 Range/Units 23:00 23:55 WBC (3.8-10.6) k/uL RBC (4.30-5.90) m/uL Hgb (13.0-17.5) gm/dL Hct (39.0-53.0) % MCV (80.0-100.0) fL MCH (25.0-35.0) pg MCHC (31.0-37.0) g/dL RDW (11.5-15.5) % Plt Count (150-450) k/uL MPV Neutrophils % % Lymphocytes % % Monocytes % % Eosinophils % % Basophils % % Neutrophils # (1.3-7.7) k/uL Lymphocytes # (1.0-4.8) k/uL Monocytes # (0-1.0) k/uL Eosinophils # (0-0.7) k/uL Basophils # (0-0.2) k/uL Hypochromasia PT (9.0-12.0) sec INR (<1.2) APTT (22.0-30.0) sec Sodium (137-145) mmol/L Potassium (3.5-5.1) mmol/L Chloride (98-107) mmol/L Carbon Dioxide (22-30) mmol/L Anion Gap mmol/L BUN (9-20) mg/dL Creatinine (0.66-1.25) mg/dL Est GFR (CKD-EPI)AfAm (>60 ml/min/1.73 sqM) Est GFR (CKD-EPI)NonAf (>60 ml/min/1.73 sqM) Glucose (74-99) mg/dL Plasma Lactic Acid Davis (0.7-2.0) mmol/L Calcium (8.4-10.2) mg/dL Magnesium (1.6-2.3) mg/dL Total Bilirubin (0.2-1.3) mg/dL AST (17-59) U/L ALT (4-49) U/L Alkaline Phosphatase (38-126) U/L Troponin I (0.000-0.034) ng/mL NT-Pro-B Natriuret Pep pg/mL Total Protein (6.3-8.2) g/dL Albumin (3.5-5.0) g/dL Urine Color Yellow Urine Appearance Clear (Clear) Urine pH 7.0 (5.0-8.0) Ur Specific Wheeler 1.014 (1.001-1.035) Urine Protein 1+ H (Negative) Urine Glucose (UA) Negative (Negative) Urine Ketones Negative (Negative) Urine Blood Negative (Negative) Urine Nitrite Negative (Negative) Urine Bilirubin Negative (Negative) Urine Urobilinogen <2.0 (<2.0) mg/dL Ur Leukocyte Esterase Negative (Negative) Urine RBC 1 (0-5) /hpf Urine WBC 2 (0-5) /hpf Hyaline Casts 1 (0-2) /lpf Urine Mucus Rare H (None) /hpf Coronavirus (PCR) Not Detected (Not Detectd) - EKG Data -: EKG Interpreted by Me EKG Comments: 12-lead Electrocardiogram Interpretation Note EKG was reviewed and interpreted by myself. 12-lead ECG performed at 2237 is interpreted by me as revealing atrial fibrillation, rate controlled at a rate of 92 beats per minute. Lily is normal. QRS duration is 124 ms, QTc is 441 ms. There are chronic T wave inversions in the leads V5 and V6 as well as aVL. Seen on prior EKGs from 2019. There were no acute ST or T wave abnormalities to suggest myocardial ischemia or injury. R wave progression across the precordium was satisfactory. By my interpretation this EKG is non-diagnostic for acute ischemia. Disposition Clinical Impression: CKD (chronic kidney disease), CHF (congestive heart failure), Elevated troponin Disposition: ADMITTED IP TO THIS [facility] Condition: Stable Referrals: Feliz Rojas MD [Primary Care Provider] - 1-2 days Time of Disposition: 00:30
[2022-01-21 23:09] LABS: Basophils # (A) 0.1 k/uL (0-0.2); Basophils % (A) 1 %; Eosinophils # (A) 0.3 k/uL (0-0.7); Eosinophils % (A) 3 %; HGB 10.8 gm/dL (13.0-17.5); Hypochromasia Marked; Lymphocytes % (A) 10 %; MCH 27.8 pg (25.0-35.0); MCHC 31.7 g/dL (31.0-37.0); MCV 87.6 fL (80.0-100.0); Mean Platelet Volume 8.5; Monocytes # (A) 0.6 k/uL (0-1.0); Monocytes % (A) 6 %; Neutrophils # (A) 7.9 k/uL (1.3-7.7); Neutrophils % (A) 78 %; Platelet Count 278 k/uL (150-450); RBC 3.88 m/uL (4.30-5.90); RDW 14.4 % (11.5-15.5); WBC 10.1 k/uL (3.8-10.6)
--- NOTE | 2022-01-21 23:22 | XR ---
EXAMINATION TYPE: XR chest 1V portable DATE OF EXAM: 01/21/2022 COMPARISON: NONE HISTORY: Weakness TECHNIQUE: Single view FINDINGS: Heart is enlarged. There is pulmonary interstitial and airspace edema. There are sternal wi res. Bony thorax is intact. Trachea is midline. IMPRESSION: There is pulmonary edema that could relate to congestive heart failure or developing RDS.
[2022-01-21 23:24] LABS: INR 1.3 (<1.2); Partial Thromboplastin Time 28.4 sec (22.0-30.0); Prothrombin Time 13.4 sec (9.0-12.0)
--- NOTE | 2022-01-21 23:25 | CT ---
EXAMINATION TYPE: CT brain wo con DATE OF EXAM: 01/21/2022 COMPARISON: None HISTORY: weakness/feet swelling, no prior on PACS CT DLP: 1125.4 mGycm Automated exposure control for dose reduction was used. There is cerebral cortical atrophy. There is no mass effect or midline shift. No sign of intracranial hemorrhage. Calvarium is intact. Ventricles are mildly enlarged. The skull base is intact. There is apparent previous surgery at the right mastoid sinus. IMPRESSION: Cerebral atrophy and chronic small vessel ischemia. No acute intracranial abnormality. Hydrocephalus.
[2022-01-21 23:42] LABS: Albumin 3.9 g/dL (3.5-5.0); Calcium 8.9 mg/dL (8.4-10.2); Total Bilirubin 0.5 mg/dL (0.2-1.3); Total Protein 6.7 g/dL (6.3-8.2)
[2022-01-21 23:46] LABS: Potassium 4.9 mmol/L (3.5-5.1)
[2022-01-22] MEDS ORDERED: NALOXONE 0.4 MG/ML 1 ML VIAL IV PRN (00:35)
[2022-01-22 00:38] LABS: Appearance,Urine Clear (Clear); Bilirubin,Urine Negative (Negative); Blood,Urine Negative (Negative); Color,Urine Yellow; Glucose,Urine (UA) Negative (Negative); Hyaline Casts,Urine 1 /lpf (0-2); Ketones,Urine Negative (Negative); Leukocyte Esterase,Urine Negative (Negative); Mucus,Urine Rare /hpf; Nitrite,Urine Negative (Negative); Protein,Urine 1+ (Negative); RBC,Urine 1 /hpf (0-5); Specific Gravity,Urine 1.014 (1.001-1.035); Urobilinogen,Urine <2.0 mg/dL (<2.0); WBC,Urine 2 /hpf (0-5)
[2022-01-22] MEDS ORDERED: ASPIRIN 81 MG PO STA (01:18)
[2022-01-22] MEDS: FUROSEMIDE 10 MG/ML 4 ML VIAL IV SCH ×5 (02:01→23:44)
[2022-01-22 03:07] LABS: Glucose,Whole Blood 65 mg/dL (70-110)
[2022-01-22] MEDS ORDERED: DEXTROSE 50% SYRINGE 50 ML IVP STA (03:23)
[2022-01-22 03:30] LABS: Glucose,Whole Blood 67 mg/dL (70-110)
[2022-01-22 04:29] LABS: Glucose,Whole Blood 170 mg/dL (70-110)
[2022-01-22 06:13] LABS: Glucose,Whole Blood 106 mg/dL (70-110)
[2022-01-22] MEDS: LEVOTHYROXINE 125 MCG TAB PO SCH (06:14)
[2022-01-22] MEDS ORDERED: DEXTROSE 10% IN WATER 500 ML in EMPTY BAG 1 BAG IV SCH (06:30)
[2022-01-22] MEDS ORDERED: INSULN ASP PRT/INSULIN ASPART 100 UNIT/ML 10 ML VIAL SQ SCH ×2 (07:30→17:30)
[2022-01-22] MEDS ORDERED: GLUCAGON 1 MG/ML VIAL IM PRN (08:41)
[2022-01-22] MEDS ORDERED: DEXTROSE 50% SYRINGE 50 ML IVP PRN (08:42)
--- NOTE | 2022-01-22 08:44 | P.HPIM ---
History of Present Illness This is a pleasant 89 years old male with past medical history of seizure, hypertension, diabetes mellitus, dementia, hyperlipidemia, atrial fibrillation on Eliquis, hypothyroidism, hearing difficulty, osteoarthritis, chronic kidney disease, coronary artery disease status post CABG Patient is poor historian, he is hard of hearing. Inflammation are obtained from medical records and staff Was brought by the daughter for worsening leg swelling and mild confusion. Patient is tachycardic and tachypneic on admission his temperature is 97.5. Heart rate is 96 and respiratory rate 17 now. He was saturating 92% on room air. Labs reviewed showing unremarkable CBC except for mild anemia with 10.8. INR is 1.3. Glucose was as low as 67, currently corrected up to 106. Creatinine is elevated at 2.5 compared to baseline of 1.7-1.9 Liver enzymes are slightly elevated with AST 135 and PTT 7 while bilirubin is normal at 0.5. Troponin is elevated 0.042[place] [address]. Urinalysis is not suspicious of infection. Coronary virus not detected EKG showing atrial fibrillation with a rate of 92 CT of the brain: Cerebral atrophy and chronic small vessel ischemia. No acute abnormality. Hydrocephalus Chest x-ray: Pulmonary edema could be CHF process of ARDS Review of Systems Review of systems CONSTITUTIONAL: No fever, no malaise, no fatigue. HEENT: No recent visual problems or hearing problems. Denied any sore throat. CARDIOVASCULAR: No orthopnea, PND, no palpitations, no syncope. PULMONARY: No chest wall tenderness, no hemoptysis. GASTROINTESTINAL: No diarrhea, no nausea, no vomiting, no abdominal pain. Normoactive bowel sounds. NEUROLOGICAL: No headaches, no weakness, no numbness. HEMATOLOGICAL: Denies any bleeding or petechiae. GENITOURINARY: Denies any burning micturition, frequency, or urgency. MUSCULOSKELETAL/RHEUMATOLOGICAL: Denies any joint pain, swelling, or any muscle pain. ENDOCRINE: Denies any polyuria or polydipsia. Past Medical History Past Medical History: Atrial Fibrillation, Diabetes Mellitus, Hearing Disorder / Deafness, Hyperlipidemia, Hypertension, Osteoarthritis (OA), Renal Disease Additional Past Medical History / Comment(s): ulcer years ago, has cleft palate & is very hard to understand, never learned to read, ramírez removed 05/[address] Edward, hearing loss History of Any Multi-Drug Resistant Organisms: None Reported Past Surgical History: Coronary Bypass/CABG, Heart Catheterization Additional Past Surgical History / Comment(s): triple bypass 20 yrs. ago, trigger finger surg. today on left pinky & middle fingers-current bandages on Past Anesthesia/Blood Transfusion Reactions: No Reported Reaction Past Psychological History: No Psychological Hx Reported Smoking Status: Never smoker Past Alcohol Use History: None Reported Past Drug Use History: None Reported - Past Family History Daughter(s) Family Medical History: Hypertension Medications and Allergies Home Medications Medication Instructions Recorded Confirmed Type Apixaban [Eliquis] 2.5 mg PO BID 04/21/19 05/07/19 History Atorvastatin [Lipitor] 80 mg PO HS 04/21/19 05/07/19 History Cholecalciferol [Vitamin D3 (25 1,000 unit PO BID 04/21/19 05/07/19 History Mcg = 1000 Iu)] Donepezil HCl [Aricept] 10 mg PO HS 04/21/19 05/07/19 History Ferrous Sulfate [Iron (65 MG 65 mg PO BID 04/21/19 05/07/19 History Elemental)] Furosemide [Lasix] 20 mg PO DAILY 04/21/19 05/07/19 History Magnesium Oxide [Mag-Ox] 400 mg PO DAILY 04/21/19 05/07/19 History Metoprolol Succinate (ER) [Toprol 25 mg PO DAILY 04/21/19 05/07/19 History XL] Multivitamins, Thera [Multivitamin 1 tab PO DAILY 04/21/19 05/07/19 History (formulary)] NIFEdipine XL [Procardia XL] 60 mg PO HS 04/21/19 05/07/19 History [place]-3 Fatty Acids/Fish Oil [Fish 1 cap PO BID 04/21/19 05/07/19 History Oil 1,000 mg Softgel] Sertraline [Zoloft] 100 mg PO DAILY 04/21/19 05/07/19 History lamoTRIgine [LaMICtal Xr] 100 mg PO DAILY 04/21/19 05/07/19 History Insulin NPH/Reg Insulin 70/30 24 unit SQ AC-SUPPER 05/07/19 05/07/19 History [humuLIN 70/30 VIAL] Insulin NPH/Reg Insulin 70/30 46 unit SQ AC-BRKFST 05/07/19 05/07/19 History [humuLIN 70/30 VIAL] Levothyroxine Sodium [Synthroid] 137 mcg PO DAILY 05/07/19 05/07/19 History Tamsulosin HCl [Flomax] 0.4 mg PO DAILY 05/07/19 05/07/19 History Amoxic-Pot Clav 500-125 mg 1 tab PO BID #28 tab 05/10/19 Rx [Augmentin 500-125 mg] Allergies Allergy/AdvReac Type Severity Reaction Status Date / Time cephalexin [From Keflex] Allergy Unknown Verified 01/22/22 07:38 dexamethasone [From Decadron] Allergy Unknown Verified 01/22/22 07:38 sulfamethoxazole Allergy Unknown Verified 01/22/22 07:38 [From Bactrim] trimethoprim [From Bactrim] Allergy Unknown Verified 01/22/22 07:38 Physical Exam Vitals: Vital Signs Temp Pulse Resp BP Pulse Ox 01/22/22 04:00 96 17 129/80 01/22/22 03:30 103 H 27 H 138/77 01/22/22 03:00 92 24 140/100 01/22/22 02:30 109 H 22 141/82 92 L 01/22/22 02:00 89 45 H 149/91 01/22/22 01:30 101 H 43 H 158/97 01/22/22 01:00 105 H 33 H 141/92 92 L 01/22/22 00:30 101 H 20 136/99 94 L 01/22/22 00:07 97 26 H 136/99 95 01/22/22 00:00 100 20 144/89 95 01/21/22 21:11 97.5 F L 95 15 126/72 96 Intake and Output 01/21/22 01/21/22 01/22/22 14:59 22:59 06:59 Output Total 825 Balance -825 Output: Urine 825 Straight 200 Other: Weight 68.039 kg GENERAL: The patient is alert and oriented x3, not in any acute distress. Well developed, well nourished. HEENT: Pupils are round and equally reacting to light. EOMI. No scleral icterus. No conjunctival pallor. Normocephalic, atraumatic. No pharyngeal erythema. No thyromegaly. CARDIOVASCULAR: S1 and S2 present. No murmurs, rubs, or gallops. -PULMONARY: Chest is clear to auscultation, no wheezing. Bilateral basal crepitation ABDOMEN: Soft, nontender, nondistended, normoactive bowel sounds. No palpable organomegaly. MUSCULOSKELETAL: No joint swelling or deformity. -EXTREMITIES: No cyanosis, clubbing,1+ bilateral pitting leg NEUROLOGICAL: Gross neurological examination did not reveal any focal deficits. SKIN: No rashes. no petechiae. Results CBC & Chem 7: 01/21/22 23:00 01/21/22 23:00 Labs: Abnormal Lab Results - Last 24 Hours (Table) 01/21/22 01/21/22 01/21/22 Range/Units 23:00 23:00 23:00 RBC 3.88 L (4.30-5.90) m/uL Hgb 10.8 L (13.0-17.5) gm/dL Hct 34.0 L (39.0-53.0) % Neutrophils # 7.9 H (1.3-7.7) k/uL PT 13.4 H (9.0-12.0) sec INR 1.3 H (<1.2) Chloride 97 L (98-107) mmol/L BUN 40 H (9-20) mg/dL Creatinine 2.54 H (0.66-1.25) mg/dL Glucose 103 H (74-99) mg/dL POC Glucose (mg/dL) (70-110) mg/dL Magnesium 3.0 H (1.6-2.3) mg/dL AST 135 H (17-59) U/L ALT 87 H (4-49) U/L Alkaline Phosphatase 208 H (38-126) U/L Troponin I (0.000-0.034) ng/mL Urine Protein (Negative) Urine Mucus (None) /hpf 01/21/22 01/22/22 01/22/22 Range/Units 23:00 02:50 03:05 RBC (4.30-5.90) m/uL Hgb (13.0-17.5) gm/dL Hct (39.0-53.0) % Neutrophils # (1.3-7.7) k/uL PT (9.0-12.0) sec INR (<1.2) Chloride (98-107) mmol/L BUN (9-20) mg/dL Creatinine (0.66-1.25) mg/dL Glucose (74-99) mg/dL POC Glucose (mg/dL) 65 L (70-110) mg/dL Magnesium (1.6-2.3) mg/dL AST (17-59) U/L ALT (4-49) U/L Alkaline Phosphatase (38-126) U/L Troponin I 0.043 H* 0.040 H* (0.000-0.034) ng/mL Urine Protein (Negative) Urine Mucus (None) /hpf 01/22/22 01/22/22 01/22/22 Range/Units 03:28 04:27 23:55 RBC (4.30-5.90) m/uL Hgb (13.0-17.5) gm/dL Hct (39.0-53.0) % Neutrophils # (1.3-7.7) k/uL PT (9.0-12.0) sec INR (<1.2) Chloride (98-107) mmol/L BUN (9-20) mg/dL Creatinine (0.66-1.25) mg/dL Glucose (74-99) mg/dL POC Glucose (mg/dL) 67 L 170 H (70-110) mg/dL Magnesium (1.6-2.3) mg/dL AST (17-59) U/L ALT (4-49) U/L Alkaline Phosphatase (38-126) U/L Troponin I (0.000-0.034) ng/mL Urine Protein 1+ H (Negative) Urine Mucus Rare H (None) /hpf Assessment and Plan Assessment: Acute CHF Acute kidney injury, most likely hepatorenal syndrome Elevated troponin Diabetes mellitus, with hypoglycemia on admission Altered mental status, most likely metabolic/toxic encephalopathy secondary to above Hypertension Hyperlipidemia Hydrocephalus Chronic atrial fibrillation on Eliquis Hypothyroidism History of osteoarthritis History of hearing difficulty History of 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 Most likely diabetic nephropathy Plan: This is a pleasant 89 years old male who presents with CHF and hypoglycemia Keep holding insulin and monitor glucose and placed accordingly Continue with Lasix intravenously Check echocardiogram Cardiology team were consulted, follow-up is recommended Labs and medication were reviewed.. Continue same treatment. Continue with symptomatic treatment. Resume home medication. Monitor lytes and vitals. DVT and GI prophylaxis. Further recommendations as per clinical course of the patient DVT prophylaxis: Eliquis GI Prophylaxis: Pepcid PT/OT: Pending Prognosis is guarded
[2022-01-22] MEDS ORDERED: APIXABAN 5 MG TAB PO SCH (09:00)
[2022-01-22 09:07] LABS: Glucose,Whole Blood 101 mg/dL (70-110)
[2022-01-22] MEDS: METOPROLOL SUCCINATE (ER) 25 MG TAB.ER.24H PO SCH ×2 (09:10→09:51)
[2022-01-22] MEDS: APIXABAN 5 MG TAB PO SCH ×3 (09:10→23:51)
--- NOTE | 2022-01-22 10:26 | P.NPCON ---
History of Present Illness - Reason for Consult acute renal failure - History of Present Illness Patient is an 89-year-old male with history of hypertension, diabetes, dementia, hyperlipidemia, atrial fibrillation and hearing loss. Patient was admitted to the hospital with history of mental status changes and increased lower extremity swelling per daughter. It is difficult to obtain history from the patient. Labs show serum creatinine at 2.4 on admission. His labs show serum creatinine of 1.7-1.[address] back to 2018 No NSAIDs noted on home med list Blood pressure is not low Patient is currently being diuresed. Chest x-ray did show evidence of pulmonary vascular congestion. Patient has been voiding. Past Medical History Past Medical History: Atrial Fibrillation, Diabetes Mellitus, Hearing Disorder / Deafness, Hyperlipidemia, Hypertension, Osteoarthritis (OA), Renal Disease Additional Past Medical History / Comment(s): ulcer years ago, has cleft palate & is very hard to understand, never learned to read, ramírez removed 05/[address] Edward, hearing loss History of Any Multi-Drug Resistant Organisms: None Reported Past Surgical History: Coronary Bypass/CABG, Heart Catheterization Additional Past Surgical History / Comment(s): triple bypass 20 yrs. ago, trigger finger surg. today on left pinky & middle fingers-current bandages on Past Anesthesia/Blood Transfusion Reactions: No Reported Reaction Past Psychological History: No Psychological Hx Reported Smoking Status: Never smoker Past Alcohol Use History: None Reported Past Drug Use History: None Reported - Past Family History Daughter(s) Family Medical History: Hypertension Medications and Allergies Home Medications Medication Instructions Recorded Confirmed Type Apixaban [Eliquis] 2.5 mg PO BID 04/21/19 01/22/22 History Atorvastatin [Lipitor] 80 mg PO HS 04/21/19 01/22/22 History Donepezil HCl [Aricept] 10 mg PO HS 04/21/19 01/22/22 History Ferrous Sulfate [Iron (65 MG 325 mg PO DAILY 04/21/19 01/22/22 History Elemental)] Furosemide [Lasix] 20 mg PO DAILY 04/21/19 01/22/22 History Magnesium Oxide [Mag-Ox] 400 mg PO DAILY 04/21/19 01/22/22 History Metoprolol Succinate (ER) [Toprol 25 mg PO DAILY 04/21/19 01/22/22 History XL] Multivitamins, Thera [Multivitamin 1 tab PO DAILY 04/21/19 01/22/22 History (formulary)] NIFEdipine XL [Procardia XL] 60 mg PO HS 04/21/19 01/22/22 History [place]-3 Fatty Acids/Fish Oil [Fish 1 cap PO BID 04/21/19 01/22/22 History Oil 1,000 mg Softgel] Sertraline [Zoloft] 100 mg PO DAILY 04/21/19 01/22/22 History Insulin NPH/Reg Insulin 70/30 24 unit SQ AC-SUPPER 05/07/19 01/22/22 History [humuLIN 70/30 VIAL] Insulin NPH/Reg Insulin 70/30 34 unit SQ AC-BRKFST 05/07/19 01/22/22 History [humuLIN 70/30 VIAL] Levothyroxine Sodium [Synthroid] 150 mcg PO DAILY 01/22/22 01/22/22 History lamoTRIgine 100 mg PO DAILY 01/22/22 01/22/22 History Allergies Allergy/AdvReac Type Severity Reaction Status Date / Time cephalexin [From Keflex] Allergy Unknown Verified 01/22/22 07:38 dexamethasone [From Decadron] Allergy Unknown Verified 01/22/22 07:38 sulfamethoxazole Allergy Unknown Verified 01/22/22 07:38 [From Bactrim] trimethoprim [From Bactrim] Allergy Unknown Verified 01/22/22 07:38 Physical Exam Vitals: Vital Signs Temp Pulse Pulse Resp BP BP Pulse Ox 01/22/22 09:23 105 H 20 147/84 95 01/22/22 04:00 96 17 129/80 01/22/22 03:30 103 H 27 H 138/77 01/22/22 03:00 92 24 140/100 01/22/22 02:30 109 H 22 141/82 92 L 01/22/22 02:00 89 45 H 149/91 01/22/22 01:30 101 H 43 H 158/97 01/22/22 01:00 105 H 33 H 141/92 92 L 01/22/22 00:30 101 H 20 136/99 94 L 01/22/22 00:07 97 26 H 136/99 95 01/22/22 00:00 100 20 144/89 95 01/21/22 21:11 97.5 F L 95 15 126/72 96 Intake and Output 0801/22/22 01/22/22 22:59 06:59 14:59 Output Total 825 700 Balance -825 -700 Output: Urine 825 700 Straight 200 Other: Weight 68.039 kg Patient is awake, comfortable, not in any acute distress Examination of the heart S1 and S2 Examination of the lungs bilateral breath sounds are heard Abdomen is soft nontender Examination of the lower extremities shows 1+ edema MECHANICAL MAINTENANCE exam grossly intact. Patient is moving all 4 extremities. He is quite hard of hearing and has difficulty in understanding Results - Lab Results Most recent lab results Calcium 8.9 mg/dL (8.4-10.2) 01/21/22 23:00 Magnesium 3.0 mg/dL (1.6-2.3) H 01/21/22 23:00 01/21/22 23:00 01/21/22 23:00 Assessment and Plan Assessment: 1. Acute kidney injury, most likely cardiorenal, rule out urine retention 2. Volume overload currently being diuresed 3. Type 2 diabetes with episode of hypoglycemia on admission 4. Chronic A. fib maintained on William was 5. Altered mentation with previous history of dementia. Patient is also quite hard of hearing therefore difficult to understand his ability to comprehend 6. 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 UA shows 1+ protein. Previous creatinine at 1.8 mg/dL all the way back to 2018 Plan: Continue with IV diuretics Decrease dose of Lasix to twice a day Check bladder scan to rule out urine retention Check ultrasound of the kidneys Repeat labs in a.m. Thank you for the consultation, we'll continue to follow the patient with you during his hospitalization
--- NOTE | 2022-01-22 11:40 | P.CRDCN ---
History of Present Illness History of present illness: HISTORY OF PRESENTING ILLNESS This is a pleasant 89-year-old male with past medical history of dementia, permanent atrial fibrillation on Eliquis, type 2 diabetes, hypertension, dyslipidemia, coronary artery disease with three-vessel CABG in 2002, hearing loss, chronic kidney disease. Unknown which transportation clerk patient sees. We have been asked to see the patient in consultation for congestive heart failure. Patient seen and examined in the emergency department, he is a poor historian, he is combative at bedside and unable to answer any questions. He is unable to tell us what brought him to the emergency department. Per chart review, patient apparently presented emergency department by his daughter secondary to increased confusion/altered mental status, generalized weakness, bilateral lower extremity edema. Patient was started on IV Lasix. DIAGNOSTICS * EKG reveals atrial fibrillation, heart rate 92, nonspecific ST segment abnormalities. No acute ischemia noted. * Telemetry tracings indicate atrial fibrillation, with relatively controlled heart rate, mild RVR * Chest xray pulmonary edema present * Laboratory reviewed, troponin 0.042, repeat troponin negative, d-dimer 1, hemoglobin 10.8, platelets 278, sodium 139, potassium 4.9, BUN 40, serum current 2.54, magnesium 2.0, proBNP 47,800, COVID-19 negative * Current home cardiac medications include nifedipine 60 mg nightly, metoprolol succinate 25 mg daily, Lasix 20 mg daily, atorvastatin 80 mg daily, Eliquis 2.5 mg twice a day REVIEW OF SYSTEMS: Unable to complete accurate review of systems secondary to altered mental status PHYSICAL EXAMINATION Blood pressure 147/84, heart rate 105, afebrile, saturations 95% room air CONSTITUTIONAL: No apparent distress. Combative, confused HEENT: Head is normocephalic. Pupils are equal, round. Sclerae anicteric. Mucous membranes of the mouth are moist. +JVD CHEST EXAMINATION: Lungs are crackles bilaterally to auscultation. No chest wall tenderness is noted on palpation or with deep breathing. HEART EXAMINATION: Irregular rate and rhythm. S1, S2 heard. Systolic ejection murmur ABDOMEN: Soft, nontender. Positive bowel sounds. EXTREMITIES: 2+ peripheral pulses, 1+ bilateral lower extremity edema and no calf tenderness. NEUROLOGIC EXAMINATION: Patient is awake, confused. Not oriented. ASSESSMENT Altered mental status Acute heart failure exacerbation, unknown EF History of dementia Permanent atrial fibrillation Type 2 diabetes Acute on chronic kidney disease Hypertension Dyslipidemia Coronary artery disease status post three-vessel CABG in 2002 PLAN Obtain 2D echocardiogram and doppler study to assess cardiac structure and function. IV Lasix 40mg TID Monitor renal function and electrolytes, monitor intake and outputs Continue home anticoagulation, beta dyana, statin Patient not on ACEI/ARB/ARNi secondary to renal function Further recommendations based on clinical course Nurse practitioner note has been reviewed by physician. Signing provider agrees with the documented findings, assessment, and plan of care. Past Medical History Past Medical History: Atrial Fibrillation, Diabetes Mellitus, Hearing Disorder / Deafness, Hyperlipidemia, Hypertension, Osteoarthritis (OA), Renal Disease Additional Past Medical History / Comment(s): ulcer years ago, has cleft palate & is very hard to understand, never learned to read, ramírez removed 05/[address] Edward, hearing loss History of Any Multi-Drug Resistant Organisms: None Reported Past Surgical History: Coronary Bypass/CABG, Heart Catheterization Additional Past Surgical History / Comment(s): triple bypass 20 yrs. ago, trigger finger surg. today on left pinky & middle fingers-current bandages on Past Anesthesia/Blood Transfusion Reactions: No Reported Reaction Past Psychological History: No Psychological Hx Reported Smoking Status: Never smoker Past Alcohol Use History: None Reported Past Drug Use History: None Reported - Past Family History Daughter(s) Family Medical History: Hypertension Medications and Allergies Home Medications Medication Instructions Recorded Confirmed Type Apixaban [Eliquis] 2.5 mg PO BID 04/21/19 01/22/22 History Atorvastatin [Lipitor] 80 mg PO HS 04/21/19 01/22/22 History Donepezil HCl [Aricept] 10 mg PO HS 04/21/19 01/22/22 History Ferrous Sulfate [Iron (65 MG 325 mg PO DAILY 04/21/19 01/22/22 History Elemental)] Furosemide [Lasix] 20 mg PO DAILY 04/21/19 01/22/22 History Magnesium Oxide [Mag-Ox] 400 mg PO DAILY 04/21/19 01/22/22 History Metoprolol Succinate (ER) [Toprol 25 mg PO DAILY 04/21/19 01/22/22 History XL] Multivitamins, Thera [Multivitamin 1 tab PO DAILY 04/21/19 01/22/22 History (formulary)] NIFEdipine XL [Procardia XL] 60 mg PO HS 04/21/19 01/22/22 History [place]-3 Fatty Acids/Fish Oil [Fish 1 cap PO BID 04/21/19 01/22/22 History Oil 1,000 mg Softgel] Sertraline [Zoloft] 100 mg PO DAILY 04/21/19 01/22/22 History Insulin NPH/Reg Insulin 70/30 24 unit SQ AC-SUPPER 05/07/19 01/22/22 History [humuLIN 70/30 VIAL] Insulin NPH/Reg Insulin 70/30 34 unit SQ AC-BRKFST 05/07/19 01/22/22 History [humuLIN 70/30 VIAL] Levothyroxine Sodium [Synthroid] 150 mcg PO DAILY 01/22/22 01/22/22 History lamoTRIgine 100 mg PO DAILY 01/22/22 01/22/22 History Allergies Allergy/AdvReac Type Severity Reaction Status Date / Time cephalexin [From Keflex] Allergy Unknown Verified 01/22/22 07:38 dexamethasone [From Decadron] Allergy Unknown Verified 01/22/22 07:38 sulfamethoxazole Allergy Unknown Verified 01/22/22 07:38 [From Bactrim] trimethoprim [From Bactrim] Allergy Unknown Verified 01/22/22 07:38 Physical Exam Vitals: Vital Signs Temp Pulse Resp BP Pulse Ox 01/22/22 04:00 96 17 129/80 01/22/22 03:30 103 H 27 H 138/77 01/22/22 03:00 92 24 140/100 01/22/22 02:30 109 H 22 141/82 92 L 01/22/22 02:00 89 45 H 149/91 01/22/22 01:30 101 H 43 H 158/97 01/22/22 01:00 105 H 33 H 141/92 92 L 01/22/22 00:30 101 H 20 136/99 94 L 01/22/22 00:07 97 26 H 136/99 95 01/22/22 00:00 100 20 144/89 95 01/21/22 21:11 97.5 F L 95 15 126/72 96 Intake and Output 01/21/22 01/22/22 01/22/22 22:59 06:59 14:59 Output Total 825 Balance -825 Output: Urine 825 Straight 200 Other: Weight 68.039 kg Results 01/21/22 23:00 01/21/22 23:00 Cardiac Enzymes 01/21/22 01/21/22 01/22/22 Range/Units 23:00 23:00 02:50 AST 135 H (17-59) U/L Troponin I 0.043 H* 0.040 H* (0.000-0.034) ng/mL Coagulation 01/21/22 Range/Units 23:00 PT 13.4 H (9.0-12.0) sec APTT 28.4 (22.0-30.0) sec CBC 01/21/22 Range/Units 23:00 WBC 10.1 (3.8-10.6) k/uL RBC 3.88 L (4.30-5.90) m/uL Hgb 10.8 L (13.0-17.5) gm/dL Hct 34.0 L (39.0-53.0) % Plt Count 278 (150-450) k/uL Comprehensive Metabolic Panel 01/21/22 Range/Units 23:00 Sodium 139 (137-145) mmol/L Potassium 4.9 (3.5-5.1) mmol/L Chloride 97 L (98-107) mmol/L Carbon Dioxide 29 (22-30) mmol/L BUN 40 H (9-20) mg/dL Creatinine 2.54 H (0.66-1.25) mg/dL Glucose 103 H (74-99) mg/dL Calcium 8.9 (8.4-10.2) mg/dL AST 135 H (17-59) U/L ALT 87 H (4-49) U/L Alkaline Phosphatase 208 H (38-126) U/L Total Protein 6.7 (6.3-8.2) g/dL Albumin 3.9 (3.5-5.0) g/dL Current Medications Generic Name Dose Route Start Last Admin Trade Name Freq PRN Reason Stop Dose Admin Apixaban 5 mg 01/22/22 09:00 Apixaban 5 Mg Tab PO BID [facility] Protocol Atorvastatin Calcium 80 mg 01/22/22 21:00 Atorvastatin 80 Mg Tab PO HS [place] Donepezil HCl 10 mg 01/22/22 21:00 Donepezil 10 Mg Tab PO HS [place] Furosemide 40 mg 01/22/22 00:30 01/22/22 02:01 Furosemide 10 Mg/Ml 4 Ml Vial IV 40 mg TID [place] Administration Dextrose/Water 500 ml/ IV 500 mls @ 50 mls/hr 01/22/22 06:30 01/22/22 06:48 Solution IV 50 mls/hr .Q10H [place] Administration Insulin Aspart 24 unit 01/22/22 17:30 Insuln Asp Prt/Insulin Aspart 100 Unit/Ml 10 Ml Vial SQ AC-SUPPER [place] Insulin Aspart 34 unit 01/22/22 07:30 Insuln Asp Prt/Insulin Aspart 100 Unit/Ml 10 Ml Vial SQ AC-BRKFST [place] Lamotrigine 50 mg 01/22/22 09:00 Lamotrigine 25 Mg Tab PO BID [place] Levothyroxine Sodium 125 mcg 01/22/22 06:30 01/22/22 06:14 Levothyroxine 125 Mcg Tab PO 125 mcg DAILY@0630 [place] Administration Metoprolol Succinate 25 mg 01/22/22 09:00 Metoprolol Succinate (Er) 25 Mg Tab.Er.24h PO DAILY [place] Naloxone HCl 0.2 mg 01/22/22 00:35 Naloxone 0.4 Mg/Ml 1 Ml Vial IV Q2M PRN Opioid Reversal Sertraline HCl 100 mg 01/22/22 09:00 Sertraline 100 Mg Tab PO DAILY [place] Intake and Output 01/21/22 01/22/22 01/22/22 22:59 06:59 14:59 Output Total 825 Balance -825 Output: Urine 825 Straight 200 Other: Weight 68.039 kg 01/21/22 23:00 01/21/22 23:00
[2022-01-22] MEDS: SERTRALINE 100 MG TAB PO SCH (17:47)
[2022-01-22] MEDS: lamoTRIgine 25 MG TAB PO SCH ×2 (17:47→23:51)
[2022-01-22 18:01] LABS: Glucose,Whole Blood 206 mg/dL (70-110)
--- NOTE | 2022-01-22 18:05 | CA ---
Transthoracic Echo Report Name: Andrea Maguire Age: 89 Gender: M : 1930 Exam Date: 01/22/2022 07:35 Exam Location: [facility] Ht (in): 69 Wt (lb): 150 Ordering Physician: Feliz Perez MD Attending/Referring Phys: Gi Dodson MD All Source Collection Manager Zarina Valle, [facility] Procedure CPT: Indications: chf Cardiac Hx: Technical Quality: Fair Contrast 1: Total Dose (mL): Contrast 2: Total Dose (mL): MEASUREMENTS (Male / Female) Normal Values 2D ECHO LV Diastolic Diameter PLAX 4.4 cm 4.2 - 5.9 / 3.9 - 5.3 cm LV Systolic Diameter PLAX 4.1 cm IVS Diastolic Thickness 1.5 cm 0.6 - 1.0 / 0.6 - 0.9 cm LVPW Diastolic Thickness 1.3 cm 0.6 - 1.0 / 0.6 - 0.9 cm LV Relative Wall Thickness 0.6 RV Internal Dim ED PLAX 3.1 cm LA Systolic Diameter LX 3.6 cm 3.0 - 4.0 / 2.7 - 3.8 cm LA Volume 73.6 cm??? 18 - 58 / 22 - 52 cm??? M-MODE Aortic Root Diameter MM 3.4 cm MV E Point Septal Separation 1.7 cm AV Cusp Separation MM 1.7 cm DOPPLER AV Peak Velocity 162.0 cm/s AV Peak Gradient 10.5 mmHg AI Peak Velocity 280.6 cm/s AI Peak Gradient 31.5 mmHg AI Pressure Half Time 350.8 ms MV Area PHT 5.9 cm??? MV Deceleration Time 151.7 ms TR Peak Velocity 315.7 cm/s TR Peak Gradient 39.9 mmHg Right Ventricular Systolic Press 54.2 mmHg FINDINGS Left Ventricle Left ventricular ejection fraction is estimated at 30-35 %. Left ventricular cavity size normal. Moderate concentric left ventricular hypertrophy. Right Ventricle Normal right ventricular size. Moderate pulmonary hypertension. Right Atrium Normal right atrial size. Left Atrium Moderately increased left atrial volume. Mildly increased left atrial area. No evidence for an atrial septal defect. Mitral Valve Mitral valve thickened. Moderate to severe mitral regurgitation.mitral annular calcification. Aortic Valve Trileaflet aortic valve. Focal thickening of the aortic valve cusps. Mild to moderateaortic regurgitation. Tricuspid Valve Moderate tricuspid regurgitation.structurally normal tricuspid valve. Pulmonic Valve Structurally normal pulmonic valve.pulmonic valve not well visualized. Pericardium Normal pericardium. No pericardial effusion. Aorta Normal size aortic root and proximal ascending aorta. CONCLUSIONS 1. Severely impaired left ventricular systolic function 2. Moderate to severe mitral regurgitation 3. Moderate tricuspid regurgitation with moderate pulmonary hypertension 4. Mild to moderate aortic regurgitation Previewed by: Dr. Caleb Lynn MD (Electronically Signed) Final Date: 22 January 2022 18:04
[2022-01-22 20:40] LABS: Glucose,Whole Blood 113 mg/dL (70-110)
[2022-01-22] MEDS: DONEPEZIL 10 MG TAB PO SCH (23:51)
[2022-01-22] MEDS: ATORVASTATIN 80 MG TAB PO SCH (23:51)
[2022-01-23] MEDS: LEVOTHYROXINE 125 MCG TAB PO SCH (06:33)
[2022-01-23] MEDS ORDERED: DEXTROSE 50% SYRINGE 50 ML IVP ONE (07:01)
[2022-01-23 07:02] LABS: Glucose,Whole Blood 42 mg/dL (70-110)
[2022-01-23 07:20] LABS: Glucose,Whole Blood 94 mg/dL (70-110)
[2022-01-23] MEDS ORDERED: FUROSEMIDE 10 MG/ML 4 ML VIAL IV SCH ×2 (09:00)
[2022-01-23 09:07] LABS: Basophils # (A) 0.1 k/uL (0-0.2); Basophils % (A) 1 %; Eosinophils # (A) 0.1 k/uL (0-0.7); Eosinophils % (A) 1 %; HCT 36.7 % (39.0-53.0); HGB 11.4 gm/dL (13.0-17.5); Hypochromasia Marked; Lymphocytes # (A) 0.8 k/uL (1.0-4.8); Lymphocytes % (A) 6 %; MCH 27.1 pg (25.0-35.0); MCV 87.4 fL (80.0-100.0); Mean Platelet Volume 9.1; Monocytes # (A) 0.9 k/uL (0-1.0); Monocytes % (A) 6 %; Neutrophils # (A) 12.7 k/uL (1.3-7.7); Neutrophils % (A) 85 %; Platelet Count 263 k/uL (150-450); RDW 14.7 % (11.5-15.5)
[2022-01-23 09:12] LABS: Magnesium 2.4 mg/dL (1.6-2.3); Potassium 4.8 mmol/L (3.5-5.1)
--- NOTE | 2022-01-23 09:31 | US ---
EXAMINATION TYPE: US kidneys/renal and bladder DATE OF EXAM: 01/23/2022 COMPARISON: CT urogram 2018 CLINICAL HISTORY: lyndsey. LYNDSEY limited exam patient not responsive unable to roll or hold breath. EXAM MEASUREMENTS: Right Kidney: 7.7 x 4.4 x 4.1 cm Left Kidney: 9.5 x 4.5 x 3.7 cm Right Kidney: Atrophic no hydronephrosis seen. Small cystic area seen .7 x .6 cm. Left Kidney: No hydronephrosis or masses seen Bladder: Cather in place. Bilateral Jets seen: No Diminished size right kidney with cortical thinning. Fairchild catheter decompresses bladder. Some cortic al thinning left kidney with size measuring lower limits of normal. No obvious hydronephrosis seen bi laterally. IMPRESSION: Evidence of chronic medical renal disease. No hydronephrosis seen bilaterally in current study.
--- NOTE | 2022-01-23 10:00 | P.PN ---
Subjective Patient is seen for follow-up for acute kidney injury and top of chronic kidney disease. He was admitted to the hospital with increased weakness lower extremity edema and shortness of breath. Chest x-ray showed evidence of pulmonary vascular congestion. Patient was started on IV Lasix yesterday. Patient does not communicate much. He has hearing loss and has a cleft palate. He is not eating much. Patient is laying flat in bed comfortably. O2 sats 100% on room air. Lasix has been decreased Patient has an indwelling Fairchild catheter with urine output at 3.7 L. Not clear if patient had urine retention Ultrasound done this morning does not show hydronephrosis. Right kidney is atrophic at 7.7 cm Objective - Vital Signs Vital signs: Vital Signs Temp 98.0 F 01/23/22 04:00 Pulse 112 H 01/23/22 08:00 Resp 16 01/23/22 08:00 BP 91/56 01/23/22 08:00 Pulse Ox 95 01/23/22 08:00 FiO2 Intake & Output 01/22/22 01/23/22 01/23/22 18:59 06:59 18:59 Intake Total 720 Output Total 1700 2000 Balance -170 -1999 720 Weight 68.039 kg 62.5 kg Intake: Oral 720 Output: Urine 1700 1999 Other: Voiding Method Indwelling Catheter Indwelling Catheter - Exam Sleeping but arousable, does not communicate much Examination of the heart S1 and S2 Examination of the lungs bilateral breath sounds are heard Abdomen is soft nontender Examination of the lower extremities shows no evidence of edema SENIOR TELECOMMUNICATIONS ENGINEER exam shows patient has been moving his extremities but does not communicate - Labs CBC & Chem 7: 01/23/22 08:26 01/23/22 08:26 Labs: Abnormal Lab Results - Last 24 Hours (Table) 01/22/22 01/22/22 01/23/22 Range/Units 17:56 20:38 07:00 WBC (3.8-10.6) k/uL RBC (4.30-5.90) m/uL Hgb (13.0-17.5) gm/dL Hct (39.0-53.0) % Neutrophils # (1.3-7.7) k/uL Lymphocytes # (1.0-4.8) k/uL Chloride (98-107) mmol/L BUN (9-20) mg/dL Creatinine (0.66-1.25) mg/dL POC Glucose (mg/dL) 206 H 113 H 42 L (70-110) mg/dL Magnesium (1.6-2.3) mg/dL 01/23/22 01/23/22 Range/Units 08:26 08:26 WBC 15.0 H (3.8-10.6) k/uL RBC 4.20 L (4.30-5.90) m/uL Hgb 11.4 L (13.0-17.5) gm/dL Hct 36.7 L (39.0-53.0) % Neutrophils # 12.7 H (1.3-7.7) k/uL Lymphocytes # 0.8 L (1.0-4.8) k/uL Chloride 97 L (98-107) mmol/L BUN 39 H (9-20) mg/dL Creatinine 2.46 H (0.66-1.25) mg/dL POC Glucose (mg/dL) (70-110) mg/dL Magnesium 2.4 H (1.6-2.3) mg/dL Assessment and Plan Assessment: 1. Acute kidney injury, most likely cardiorenal, possible urine retention. Currently with indwelling Fairchild catheter 2. Volume overload currently being diuresed 3. Type 2 diabetes with episode of hypoglycemia on admission 4. Chronic A. fib maintained on William was 5. Altered mentation with previous history of dementia. Patient is also quite hard of hearing therefore difficult to understand his ability to comprehend 6. 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 UA shows 1+ protein. Previous creatinine at 1.8 mg/dL all the way back to 2018. Ultrasound shows right renal atrophy with right kidney at 7.7 cm Plan: Agree with decreasing Lasix Encourage increased oral intake Decrease Lasix further Repeat labs in a.m. Repeat chest x-ray in a.m.
--- NOTE | 2022-01-23 11:11 | P.PN ---
Subjective This is a pleasant 89-year-old male with past medical history of dementia, permanent atrial fibrillation on Eliquis, type 2 diabetes, hypertension, d yslipidemia, coronary artery disease with three-vessel CABG in 2002, hearing loss, chronic kidney disease. 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 We have been asked to see the patient in consultation for congestive heart failure. Patient seen and examined in the emergency department, he is a poor historian, he is combative at bedside and unable to answer any questions. He is unable to tell us what brought him to the emergency department. Per chart review, patient apparently presented emergency department by his daughter secondary to increased confusion/altered mental status, generalized weakness, bilateral lower extremity edema. Patient was started on IV Lasix. 01/23: Patient seen and examined at bedside, he is lying flat in bed, no acute distress. His lungs are clear. He was diuresed with IV Lasix. Breathing has improved. Sodium 139, potassium 4.8, BUN 39, serum creatinine 2.4 Echocardiogram revealed EF of 3035%, moderate concentric LVH, mild to moderate aortic regurgitation, moderate to severe mitral regurgitation, moderate tricuspid regurgitation, moderate pulmonary hypertension PHYSICAL EXAMINATION Vitals reviewed CONSTITUTIONAL: No apparent distress. Combative, confused HEENT: Head is normocephalic. Pupils are equal, round. Sclerae anicteric. Mucous membranes of the mouth are moist. No JVD CHEST EXAMINATION: Lungs are clear to auscultation bilaterally. No chest wall tenderness is noted on palpation or with deep breathing. HEART EXAMINATION: Irregular rate and rhythm. S1, S2 heard. Systolic ejection murmur at apex ABDOMEN: Soft, nontender. Positive bowel sounds. EXTREMITIES: 2+ peripheral pulses, no lower extremity edema and no calf tenderness. NEUROLOGIC EXAMINATION: Patient is awake, confused. Not oriented. ASSESSMENT Altered mental status Acute heart failure exacerbation with reduced ejection fraction History of dementia Permanent atrial fibrillation Type 2 diabetes Acute on chronic kidney disease Hypertension Dyslipidemia Coronary artery disease status post three-vessel CABG in 2002 PLAN Recommend transition to PO Lasix 20mg BID Continue home anticoagulation, beta dyana, statin Patient not on ACEI/ARB/ARNi secondary to renal function From a cardiology perspective, patient is stable for discharge when cleared by primary and other consultants Nurse practitioner note has been reviewed by physician. Signing provider agrees with the documented findings, assessment, and plan of care. Objective - Vital Signs Vital signs: Vital Signs Temp 98.0 F 01/23/22 04:00 Pulse 107 H 01/23/22 04:00 Resp 18 01/23/22 04:00 BP 115/45 01/23/22 04:00 Pulse Ox 100 01/23/22 04:00 FiO2 Intake & Output 01/22/22 01/23/22 01/23/22 18:59 06:59 18:59 Output Total 1700 1999 Balance -170 -1999 Weight 68.039 kg 62.5 kg Output: Urine 1700 1999 Other: Voiding Method Indwelling Catheter Indwelling Catheter - Labs CBC & Chem 7: 01/23/22 08:26 01/23/22 08:26 Labs: Abnormal Lab Results - Last 24 Hours (Table) 01/22/22 01/22/22 01/23/22 Range/Units 17:56 20:38 07:00 POC Glucose (mg/dL) 206 H 113 H 42 L (70-110) mg/dL
[2022-01-23 11:44] LABS: Glucose,Whole Blood 73 mg/dL (70-110)
[2022-01-23] MEDS: lamoTRIgine 25 MG TAB PO SCH ×2 (12:26→20:10)
[2022-01-23] MEDS: FUROSEMIDE 20 MG TAB PO SCH ×2 (12:27→17:06)
[2022-01-23] MEDS: APIXABAN 5 MG TAB PO SCH ×2 (12:27→20:10)
[2022-01-23] MEDS: SERTRALINE 100 MG TAB PO SCH (12:27)
[2022-01-23] MEDS: METOPROLOL SUCCINATE (ER) 25 MG TAB.ER.24H PO SCH (12:28)
[2022-01-23 16:58] LABS: Glucose,Whole Blood 100 mg/dL (70-110)
--- NOTE | 2022-01-23 19:04 | P.PN ---
Subjective This is a pleasant 89 years old male with past medical history of seizure, hypertension, diabetes mellitus, dementia, hyperlipidemia, atrial fibrillation on Eliquis, hypothyroidism, hearing difficulty, osteoarthritis, chronic kidney disease, coronary artery disease status post CABG Patient is poor historian, he is hard of hearing. Inflammation are obtained from medical records and staff Was brought by the daughter for worsening leg swelling and mild confusion. Patient is tachycardic and tachypneic on admission his temperature is 97.5. Heart rate is 96 and respiratory rate 17 now. He was saturating 92% on room air. Labs reviewed showing unremarkable CBC except for mild anemia with 10.8. INR is 1.3. Glucose was as low as 67, currently corrected up to 106. Creatinine is elevated at 2.5 compared to baseline of 1.7-1.9 Liver enzymes are slightly elevated with AST 135 and PTT 7 while bilirubin is normal at 0.5. Troponin is elevated 0.042. [place] 42080. Urinalysis is not suspicious of infection. Coronary virus not detected EKG showing atrial fibrillation with a rate of 92 CT of the brain: Cerebral atrophy and chronic small vessel ischemia. No acute abnormality. Hydrocephalus Chest x-ray: Pulmonary edema could be CHF process of ARDS Objective - Vital Signs Vital signs: Vital Signs Temp 98.0 F 01/23/22 04:00 Pulse 112 H 01/23/22 08:00 Resp 16 01/23/22 08:00 BP 91/56 01/23/22 08:00 Pulse Ox 95 01/23/22 08:00 FiO2 Intake & Output 01/22/22 01/23/22 01/23/22 18:59 06:59 18:59 Intake Total 720 Output Total 1700 2000 Balance -170 -1999 720 Weight 68.039 kg 62.5 kg Intake: Oral 720 Output: Urine 1700 2000 Other: Voiding Method Indwelling Catheter Indwelling Catheter Indwelling Catheter - Exam -GENERAL: The patient is alert , lethargic, not in any acute distress. Well developed, well nourished. HEENT: Pupils are round and equally reacting to light. EOMI. No scleral icterus. No conjunctival pallor. Normocephalic, atraumatic. No pharyngeal erythema. No thyromegaly. CARDIOVASCULAR: S1 and S2 present. No murmurs, rubs, or gallops. PULMONARY: Chest is clear to auscultation, no wheezing or crackles. ABDOMEN: Soft, nontender, nondistended, normoactive bowel sounds. No palpable organomegaly. MUSCULOSKELETAL: No joint swelling or deformity. EXTREMITIES: No cyanosis, clubbing. Minimal pedal edema. NEUROLOGICAL: Gross neurological examination did not reveal any focal deficits. SKIN: No rashes. no petechiae. - Labs CBC & Chem 7: 01/23/22 08:26 01/23/22 08:26 Labs: Abnormal Lab Results - Last 24 Hours (Table) 01/22/22 01/22/22 01/23/22 Range/Units 17:56 20:38 07:00 WBC (3.8-10.6) k/uL RBC (4.30-5.90) m/uL Hgb (13.0-17.5) gm/dL Hct (39.0-53.0) % Neutrophils # (1.3-7.7) k/uL Lymphocytes # (1.0-4.8) k/uL Chloride (98-107) mmol/L BUN (9-20) mg/dL Creatinine (0.66-1.25) mg/dL POC Glucose (mg/dL) 206 H 113 H 42 L (70-110) mg/dL Magnesium (1.6-2.3) mg/dL 01/23/22 01/23/22 Range/Units 08:26 08:26 WBC 15.0 H (3.8-10.6) k/uL RBC 4.20 L (4.30-5.90) m/uL Hgb 11.4 L (13.0-17.5) gm/dL Hct 36.7 L (39.0-53.0) % Neutrophils # 12.7 H (1.3-7.7) k/uL Lymphocytes # 0.8 L (1.0-4.8) k/uL Chloride 97 L (98-107) mmol/L BUN 39 H (9-20) mg/dL Creatinine 2.46 H (0.66-1.25) mg/dL POC Glucose (mg/dL) (70-110) mg/dL Magnesium 2.4 H (1.6-2.3) mg/dL Assessment and Plan Assessment: Acute CHF Acute kidney injury, most likely hepatorenal syndrome Elevated troponin Diabetes mellitus, with hypoglycemia on admission Altered mental status, most likely metabolic/toxic encephalopathy secondary to above Hypertension Hyperlipidemia Hydrocephalus Chronic atrial fibrillation on Eliquis Hypothyroidism History of osteoarthritis History of hearing difficulty History of 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 Most likely diabetic nephropathy Plan: This is a pleasant 89 years old male who presents with CHF and hypoglycemia Keep holding insulin and monitor glucose and placed accordingly Continue with Lasix, but switched oral dose 20 twice a day Cardiology cleared the patient Check labs and chest x-ray in the morning, it corporate recruiter on the case Labs and medication were reviewed.. Continue same treatment. Continue with symptomatic treatment. Resume home medication. Monitor lytes and vitals. DVT and GI prophylaxis. Further recommendations as per clinical course of the patient DVT prophylaxis: Eliquis GI Prophylaxis: Pepcid PT/OT: Pending Prognosis is guarded
[2022-01-23 20:08] LABS: Glucose,Whole Blood 178 mg/dL (70-110)
[2022-01-23] MEDS: DONEPEZIL 10 MG TAB PO SCH (20:09)
[2022-01-23] MEDS: ATORVASTATIN 80 MG TAB PO SCH (20:10)
[2022-01-23 22:39] LABS: Appearance,Urine Clear (Clear); Bilirubin,Urine Negative (Negative); Blood,Urine Moderate (Negative); Color,Urine Yellow; Glucose,Urine (UA) Negative (Negative); Hyaline Casts,Urine 5 /lpf (0-2); Ketones,Urine Negative (Negative); Leukocyte Esterase,Urine Moderate (Negative); Mucus,Urine Rare /hpf; Nitrite,Urine Negative (Negative); Protein,Urine 1+ (Negative); RBC,Urine 15 /hpf (0-5); Specific Gravity,Urine 1.014 (1.001-1.035); WBC,Urine 10 /hpf (0-5)
[2022-01-24 06:10] LABS: Glucose,Whole Blood 141 mg/dL (70-110)
[2022-01-24] MEDS: LEVOTHYROXINE 125 MCG TAB PO SCH (06:21)
--- NOTE | 2022-01-24 07:16 | XR ---
EXAMINATION TYPE: XR chest 1V DATE OF EXAM: 01/24/2022 CLINICAL HISTORY: Difficulty breathing progress study. TECHNIQUE: Single AP portable upright view of the chest is obtained. COMPARISON: Chest x-ray from 3 days earlier FINDINGS: Overlying sternal wires and mediastinal clips redemonstrated. Cardiac silhouette size is s table and upper limits of normal. Osseous structures are intact. Persistent increased markings bilaterally greatest in the lower lungs and along the periphery. No pne umothorax seen bilaterally. . IMPRESSION: I do suspect moderate interstitial edema and small tiny bilateral pleural effusions on ba ckground chronic parenchymal changes. Correlate clinically. Correlation with old outside x-ray would be beneficial. Slight improvement from most recent x-ray noted.
[2022-01-24] MEDS: lamoTRIgine 25 MG TAB PO SCH ×2 (08:49→20:26)
[2022-01-24] MEDS: SERTRALINE 100 MG TAB PO SCH (08:49)
[2022-01-24] MEDS: FUROSEMIDE 20 MG TAB PO SCH ×2 (08:50→15:45)
[2022-01-24] MEDS: METOPROLOL SUCCINATE (ER) 25 MG TAB.ER.24H PO SCH (08:50)
[2022-01-24] MEDS: APIXABAN 5 MG TAB PO SCH ×2 (08:50→20:26)
[2022-01-24 09:46] LABS: Calcium 8.5 mg/dL (8.4-10.2); Magnesium 2.2 mg/dL (1.6-2.3); Potassium 4.8 mmol/L (3.5-5.1)
[2022-01-24 11:58] LABS: Glucose,Whole Blood 158 mg/dL (70-110)
[2022-01-24 16:45] LABS: Glucose,Whole Blood 158 mg/dL (70-110)
--- NOTE | 2022-01-24 18:00 | P.PN ---
Subjective This is a pleasant 89 years old male with past medical history of seizure, hypertension, diabetes mellitus, dementia, hyperlipidemia, atrial fibrillation on Eliquis, hypothyroidism, hearing difficulty, osteoarthritis, chronic kidney disease, coronary artery disease status post CABG Patient is poor historian, he is hard of hearing. Inflammation are obtained from medical records and staff Was brought by the daughter for worsening leg swelling and mild confusion. Patient is tachycardic and tachypneic on admission his temperature is 97.5. Heart rate is 96 and respiratory rate 17 now. He was saturating 92% on room air. Labs reviewed showing unremarkable CBC except for mild anemia with 10.8. INR is 1.3. Glucose was as low as 67, currently corrected up to 106. Creatinine is elevated at 2.5 compared to baseline of 1.7-1.9 Liver enzymes are slightly elevated with AST 135 and PTT 7 while bilirubin is normal at 0.5. Troponin is elevated 0.042. ProBNP is elevated 08817. Urinalysis is not suspicious of infection. Coronary virus not detected EKG showing atrial fibrillation with a rate of 92 CT of the brain: Cerebral atrophy and chronic small vessel ischemia. No acute abnormality. Hydrocephalus Chest x-ray: Pulmonary edema could be CHF process of ARDS 01/24/2022 patient today is alert and awake and interactive, he is little hard of hearing and a little bit confused but looks like this is his baseline, he looks COMFORTABLE and pleasant. He follows Commands Vitals are stable, he is afebrile, no leukocytosis. Does not complain from specific symptoms. Patient in the afternoon he was still awake and alert with no worsening in his mentation since morning indicating more ports this his baseline. His IV Lasix switched oral Lasix and his creatinine stable 2.7. Buffing Machine Tender already cleared the patient. Repeat chest x-ray today shows some residual effect from CHF however patient is on room air. He has a Fairchild catheter placed on admission for he was on high-dose of Lasix, currently we will discontinue the Fairchild catheter and keep checking PVR, discussed with bed side nurse. I don't think the patient has UTI, were going to recheck urinalysis. No antibiotics for now. He is on home dose of the Eliquis Patient glucose is controlled with no coverage. He was on high dose of insulin 70/30 at home 34 units in the morning and 24 units at night that's total 58 units daily, whose glucose wasn't 60 and hypoglycemic on admission. Most likely patient diagnosis is AMS secondary to hypoglycemia. His hemoglobin A1c is controlled 7% Objective - Vital Signs Vital signs: Vital Signs Temp 97.4 F L 01/24/22 03:50 Pulse 108 H 01/24/22 12:00 Resp 16 01/24/22 12:00 BP 114/64 01/24/22 12:00 Pulse Ox 99 01/24/22 12:00 FiO2 Intake & Output 01/23/22 01/24/22 01/24/22 18:59 06:59 18:59 Intake Total 1080 472 298 Output Total 450 620 Balance 630 -148 298 Intake: IV 10 Invasive Line 3 10 Oral 1080 462 298 Output: Urine 450 620 Uretheral (Fairchild) 620 Other: Voiding Method Indwelling Catheter Indwelling Catheter Indwelling Catheter # Bowel Movements 1 - Exam -GENERAL: The patient is alert , lethargic, not in any acute distress. Well developed, well nourished. HEENT: Pupils are round and equally reacting to light. EOMI. No scleral icterus. No conjunctival pallor. Normocephalic, atraumatic. No pharyngeal erythema. No thyromegaly. CARDIOVASCULAR: S1 and S2 present. No murmurs, rubs, or gallops. PULMONARY: Chest is clear to auscultation, no wheezing or crackles. ABDOMEN: Soft, nontender, nondistended, normoactive bowel sounds. No palpable organomegaly. MUSCULOSKELETAL: No joint swelling or deformity. EXTREMITIES: No cyanosis, clubbing. Minimal pedal edema. NEUROLOGICAL: Gross neurological examination did not reveal any focal deficits. SKIN: No rashes. no petechiae. - Labs CBC & Chem 7: 01/23/22 08:26 01/24/22 08:32 Labs: Abnormal Lab Results - Last 24 Hours (Table) 01/23/22 01/23/22 01/24/22 Range/Units 20:06 21:55 06:08 Chloride (98-107) mmol/L Carbon Dioxide (22-30) mmol/L BUN (9-20) mg/dL Creatinine (0.66-1.25) mg/dL Glucose (74-99) mg/dL POC Glucose (mg/dL) 178 H 141 H (70-110) mg/dL Hemoglobin A1c (0.0-6.0) % Urine Protein 1+ H (Negative) Urine Blood Moderate H (Negative) Ur Leukocyte Esterase Moderate H (Negative) Urine RBC 15 H (0-5) /hpf Urine WBC 10 H (0-5) /hpf Hyaline Casts 5 H (0-2) /lpf Urine Mucus Rare H (None) /hpf 01/24/22 01/24/22 01/24/22 Range/Units 08:32 08:32 11:56 Chloride 92 L (98-107) mmol/L Carbon Dioxide 31 H (22-30) mmol/L BUN 42 H (9-20) mg/dL Creatinine 2.75 H (0.66-1.25) mg/dL Glucose 212 H (74-99) mg/dL POC Glucose (mg/dL) 158 H (70-110) mg/dL Hemoglobin A1c 7.0 H (0.0-6.0) % Urine Protein (Negative) Urine Blood (Negative) Ur Leukocyte Esterase (Negative) Urine RBC (0-5) /hpf Urine WBC (0-5) /hpf Hyaline Casts (0-2) /lpf Urine Mucus (None) /hpf Assessment and Plan Assessment: Altered mental status due to metabolic encephalopathy secondary to hypoglycemia. Resolved Acute CHF, resolved Acute kidney injury, most likely hepatorenal syndrome. 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 Patient glucose is controlled Continue with Lasix, but switched oral dose 20 twice a day Cardiology cleared the patient No signs of infection, no need for antibiotic, no fever or leukocytosis. Discontinue Fairchild catheter and check PVR Discontinue ID consult Labs and medication were reviewed.. Continue same treatment. Continue with symptomatic treatment. Resume home medication. Monitor lytes and vitals. DVT and GI prophylaxis. Further recommendations as per clinical course of the patient DVT prophylaxis: Eliquis GI Prophylaxis: Pepcid PT/OT: [facility]CEDE[facility] Patient medically stable pending placement
[2022-01-24 18:50] LABS: Appearance,Urine Clear (Clear); Bilirubin,Urine Negative (Negative); Blood,Urine Large (Negative); Color,Urine Light Yellow; Glucose,Urine (UA) Negative (Negative); Ketones,Urine Negative (Negative); Leukocyte Esterase,Urine Moderate (Negative); Nitrite,Urine Negative (Negative); Protein,Urine 1+ (Negative); RBC,Urine 64 /hpf (0-5); Specific Gravity,Urine 1.011 (1.001-1.035); Urobilinogen,Urine <2.0 mg/dL (<2.0); WBC,Urine 16 /hpf (0-5)
[2022-01-24 20:03] LABS: Glucose,Whole Blood 195 mg/dL (70-110)
[2022-01-24] MEDS: DONEPEZIL 10 MG TAB PO SCH (20:26)
[2022-01-24] MEDS: ATORVASTATIN 80 MG TAB PO SCH (20:26)
--- NOTE | 2022-01-25 05:38 | PN ---
PROGRESS NOTE SUBJECTIVE: The patient is seen for followup for acute kidney injury. He was admitted to the hospital with CHF and volume overload. The patient was diuresed. His diuretics have been decreased. Serum creatinine has been slowly increasing and it is up to 2.7 today. Urine output has been good. 24-hour output documented at 1.0 L, it was 3.7 L prior to that. The patient has an indwelling Fairchild catheter. Currently, he is in the bathroom and he is being helped. The patient does not appear to have any significant shortness of breath. OBJECTIVE: VITAL SIGNS: Reviewed. Blood pressure is 114/64, heart rate 108 per minute, O2 sats 99% on room air. EXTREMITIES: The patient has no edema in his lower extremities. LABORATORY DATA: Reviewed. Sodium 137, potassium 4.8, CO2 is 31, BUN 42, creatinine 2.75. UA shows moderate leukocyte esterase, wbc's 10, protein 1+, moderate blood. ASSESSMENT: 1. Acute kidney injury, mostly cardiorenal and possibly from urine retention. Currently with indwelling Fairchild catheter. Lasix dose has been decreased. 2. Volume overload, currently improved. 3. Type 2 diabetes with episode of hypoglycemia, on initial admission. 4. Chronic atrial fibrillation, maintained on Eliquis. 5. Altered mentation with previous history of dementia. The patient is also hard of hearing and has a cleft palate. 6. 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 UA shows 1+ protein. Previous creatinine 1.8, all the way back to 2018. Ultrasound shows right renal atrophy with right kidney at 7.7 cm. PLAN: Continue with lower dose of Lasix. Repeat labs in a.m. Repeat chest x-ray, continues to show some degree of interstitial edema. If his renal function is worse tomorrow, I will decrease the Lasix further. MMODL / IJN: [id number] /
[2022-01-25 06:08] LABS: Glucose,Whole Blood 176 mg/dL (70-110)
[2022-01-25] MEDS: LEVOTHYROXINE 125 MCG TAB PO SCH (06:25)
[2022-01-25] MEDS: lamoTRIgine 25 MG TAB PO SCH ×2 (08:43→19:58)
[2022-01-25] MEDS: METOPROLOL SUCCINATE (ER) 25 MG TAB.ER.24H PO SCH (08:44)
[2022-01-25] MEDS: SERTRALINE 100 MG TAB PO SCH (08:44)
[2022-01-25] MEDS: APIXABAN 5 MG TAB PO SCH ×2 (08:44→19:57)
[2022-01-25] MEDS: FUROSEMIDE 20 MG TAB PO SCH ×2 (08:44→16:41)
--- NOTE | 2022-01-25 10:41 | P.PN ---
Subjective This is a pleasant 89 years old male with past medical history of seizure, hypertension, diabetes mellitus, dementia, hyperlipidemia, atrial fibrillation on Eliquis, hypothyroidism, hearing difficulty, osteoarthritis, chronic kidney disease, coronary artery disease status post CABG Patient is poor historian, he is hard of hearing. Inflammation are obtained from medical records and staff Was brought by the daughter for worsening leg swelling and mild confusion. Patient is tachycardic and tachypneic on admission his temperature is 97.5. Heart rate is 96 and respiratory rate 17 now. He was saturating 92% on room air. Labs reviewed showing unremarkable CBC except for mild anemia with 10.8. INR is 1.3. Glucose was as low as 67, currently corrected up to 106. Creatinine is elevated at 2.5 compared to baseline of 1.7-1.9 Liver enzymes are slightly elevated with AST 135 and PTT 7 while bilirubin is normal at 0.5. Troponin is elevated 0.042. ProBNP [place] elevated 53392. Urinalysis is not suspicious of infection. Coronary virus not detected EKG showing atrial fibrillation with a rate of 92 CT of the brain: Cerebral atrophy and chronic small vessel ischemia. No acute abnormality. Hydrocephalus Chest x-ray: Pulmonary edema could be CHF process of ARDS 01/24/2022 patient today is alert and awake and interactive, he is little hard of hearing and a little bit confused but looks like this is his baseline, he looks COMFORTABLE and pleasant. He follows Commands Vitals are stable, he is afebrile, no leukocytosis. Does not complain from specific symptoms. Patient in the afternoon he was still awake and alert with no worsening in his mentation since morning indicating more ports this his baseline. His IV Lasix switched oral Lasix and his creatinine stable 2.7. Deposition Reporter already cleared the patient. Repeat chest x-ray today shows some residual effect from CHF however patient is on room air. He has a Fairchild catheter placed on admission for he was on high-dose of Lasix, currently we will discontinue the Fairchild catheter and keep checking PVR, discussed with bed side nurse. I don't think the patient has UTI, were going to recheck urinalysis. No antibiotics for now. He is on home dose of the Eliquis Patient glucose is controlled with no coverage. He was on high dose of insulin 70/30 at home 34 units in the morning and 24 units at night that's total 58 units daily, whose glucose wasn't 60 and hypoglycemic on admission. Most likely patient diagnosis is AMS secondary to hypoglycemia. His hemoglobin A1c is controlled 7% 01/25/2022 Patient is awake and alert and interactive since yesterday looks like he is back or close to his baseline, he is hard of hearing. We will DC Fairchild catheter and check PVR and it was 150-200. He still been treated for UTI with ceftriaxone. Urine culture still pending. Repeat urine analysis was still abnormal yesterday. Creatinine is stable and he switched oral Lasix, although chest x-ray shows still some congestion however is clinically doing well, he is not tachypneic or dyspneic and he is on Coumadin saturating well. His currently on insulin sliding scale and insulin 70/30/85 units daily were stopped. Looks like patient cleared by applied psychology teacher and belt lacer as per my discussion with them Possible discharge once urine culture is back Objective - Vital Signs Vital signs: Vital Signs Temp 97.6 F 01/25/22 04:00 Pulse 105 H 01/25/22 04:00 Resp 16 01/25/22 04:00 BP 114/70 01/25/22 04:00 Pulse Ox 97 01/25/22 04:00 FiO2 Intake & Output 01/24/22 01/25/22 01/25/22 18:59 06:59 18:59 Intake Total 298 10 180 Balance 298 10 180 Intake: IV 10 Invasive Line 3 10 Oral 298 180 Other: Voiding Method Indwelling Catheter # Bowel Movements 1 - Exam -GENERAL: The patient is alert , lethargic, not in any acute distress. Well developed, well nourished. HEENT: Pupils are round and equally reacting to light. EOMI. No scleral icterus. No conjunctival pallor. Normocephalic, atraumatic. No pharyngeal erythema. No thyromegaly. CARDIOVASCULAR: S1 and S2 present. No murmurs, rubs, or gallops. PULMONARY: Chest is clear to auscultation, no wheezing or crackles. ABDOMEN: Soft, nontender, nondistended, normoactive bowel sounds. No palpable organomegaly. MUSCULOSKELETAL: No joint swelling or deformity. EXTREMITIES: No cyanosis, clubbing. Minimal pedal edema. NEUROLOGICAL: Gross neurological examination did not reveal any focal deficits. SKIN: No rashes. no petechiae. - Labs CBC & Chem 7: 01/23/22 08:26 01/24/22 08:32 Labs: Abnormal Lab Results - Last 24 Hours (Table) 01/24/22 01/24/22 01/24/22 Range/Units 08:32 11:56 16:43 POC Glucose (mg/dL) 158 H 158 H (70-110) mg/dL Hemoglobin A1c 7.0 H (0.0-6.0) % Urine Protein (Negative) Urine Blood (Negative) Ur Leukocyte Esterase (Negative) Urine RBC (0-5) /hpf Urine WBC (0-5) /hpf 01/24/22 01/24/22 01/25/22 Range/Units 18:43 20:02 06:06 POC Glucose (mg/dL) 195 H 176 H (70-110) mg/dL Hemoglobin A1c (0.0-6.0) % Urine Protein 1+ H (Negative) Urine Blood Large H (Negative) Ur Leukocyte Esterase Moderate H (Negative) Urine RBC 64 H (0-5) /hpf Urine WBC 16 H (0-5) /hpf Microbiology - Last 24 Hours (Table) 01/24/22 18:43 Urine Culture - Preliminary Urine,Clean Catch Assessment and Plan Assessment: Altered mental status due to metabolic encephalopathy secondary to hypoglycemia. Resolved Acute CHF, resolved Acute kidney injury, most likely hepatorenal syndrome. 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 Patient glucose is controlled Continue with Lasix, but switched oral dose 20 twice a day Cardiology and nephrology team cleared the patient Continue with ceftriaxone and follow-up urine culture Discontinue Fairchild catheter and check PVR Discontinue ID consult Labs and medication were reviewed.. Continue same treatment. Continue with symptomatic treatment. Resume home medication. Monitor lytes and vitals. DVT and GI prophylaxis. Further recommendations as per clinical course of the patient DVT prophylaxis: Eliquis GI Prophylaxis: Pepcid PT/OT: [facility] Patient medically stable pending placement, once urine culture is back I called the daughter upon her request Miss Jones at [phone] and left a message
--- NOTE | 2022-01-25 10:51 | P.PN ---
Subjective Patient is seen for follow-up for acute kidney injury and top of chronic kidney disease. He was admitted to the hospital with increased weakness lower extremity edema and shortness of breath. Chest x-ray showed evidence of pulmonary vascular congestion. Patient was started on IV Lasix and subsequently switched to low- dose by mouth Lasix Patient does not communicate much. He has hearing loss and has a cleft palate. He is not eating much. Patient is laying flat in bed comfortably. O2 sats 100% on room air. Lasix has been decreased Patient has an indwelling Fairchild catheter with urine output at 1070 mL Not clear if patient had urine retention initially Ultrasound done this morning does not show hydronephrosis. Right kidney is atrophic at 7.7 cm Objective - Vital Signs Vital signs: Vital Signs Temp 97.6 F 01/25/22 04:00 Pulse 105 H 01/25/22 04:00 Resp 16 01/25/22 04:00 BP 114/70 01/25/22 04:00 Pulse Ox 97 01/25/22 04:00 FiO2 Intake & Output 01/24/22 01/25/22 01/25/22 18:59 06:59 18:59 Intake Total 298 10 180 Balance 298 10 180 Intake: IV 10 Invasive Line 3 10 Oral 298 180 Other: Voiding Method Indwelling Catheter # Bowel Movements 1 - Exam Sleeping but arousable, does not communicate much Examination of the heart S1 and S2 Examination of the lungs bilateral breath sounds are heard Abdomen is soft nontender Examination of the lower extremities shows no evidence of edema BIT GRINDER exam shows patient has been moving his extremities but does not communicate - Labs CBC & Chem 7: 01/23/22 08:26 01/24/22 08:32 Labs: Abnormal Lab Results - Last 24 Hours (Table) 01/24/22 01/24/22 01/24/22 Range/Units 08:32 11:56 16:43 POC Glucose (mg/dL) 158 H 158 H (70-110) mg/dL Hemoglobin A1c 7.0 H (0.0-6.0) % Urine Protein (Negative) Urine Blood (Negative) Ur Leukocyte Esterase (Negative) Urine RBC (0-5) /hpf Urine WBC (0-5) /hpf 01/24/22 01/24/22 01/25/22 Range/Units 18:43 20:02 06:06 POC Glucose (mg/dL) 195 H 176 H (70-110) mg/dL Hemoglobin A1c (0.0-6.0) % Urine Protein 1+ H (Negative) Urine Blood Large H (Negative) Ur Leukocyte Esterase Moderate H (Negative) Urine RBC 64 H (0-5) /hpf Urine WBC 16 H (0-5) /hpf Microbiology - Last 24 Hours (Table) 01/24/22 18:43 Urine Culture - Preliminary Urine,Clean Catch Assessment and Plan Assessment: 1. Acute kidney injury, most likely cardiorenal, possible urine retention. Currently with indwelling Fairchild catheter 2. Volume overload currently being diuresed 3. Type 2 diabetes with episode of hypoglycemia on admission 4. Chronic A. fib maintained on William was 5. Altered mentation with previous history of dementia. Patient is also quite hard of hearing therefore difficult to understand his ability to comprehend 6. 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 UA shows 1+ protein. Previous creatinine at 1.8 mg/dL all the way back to 2018. Ultrasound shows right renal atrophy with right kidney at 7.7 cm Plan: Continue with low-dose loop diuretics Patient can be discharged from nephrology standpoint.
[2022-01-25 11:57] LABS: Glucose,Whole Blood 168 mg/dL (70-110)
[2022-01-25] MEDS: TAMSULOSIN 0.4 MG CAP.ER.24H PO SCH (12:32)
[2022-01-25 17:04] LABS: Glucose,Whole Blood 196 mg/dL (70-110)
[2022-01-25] MEDS: DONEPEZIL 10 MG TAB PO SCH (19:57)
[2022-01-25] MEDS: ATORVASTATIN 80 MG TAB PO SCH (19:57)
[2022-01-25 20:06] LABS: Glucose,Whole Blood 235 mg/dL (70-110)
[2022-01-26 06:12] LABS: Glucose,Whole Blood 171 mg/dL (70-110)
[2022-01-26] MEDS: LEVOTHYROXINE 125 MCG TAB PO SCH (06:44)
[2022-01-26] MEDS: lamoTRIgine 25 MG TAB PO SCH (08:43)
[2022-01-26] MEDS: TAMSULOSIN 0.4 MG CAP.ER.24H PO SCH (08:43)
[2022-01-26] MEDS: FUROSEMIDE 20 MG TAB PO SCH ×2 (08:43→17:05)
[2022-01-26] MEDS: APIXABAN 5 MG TAB PO SCH (08:44)
[2022-01-26] MEDS: METOPROLOL SUCCINATE (ER) 25 MG TAB.ER.24H PO SCH (08:44)
[2022-01-26] MEDS: SERTRALINE 100 MG TAB PO SCH (08:44)
--- NOTE | 2022-01-26 09:30 | P.PN ---
Subjective This is a pleasant 89 years old male with past medical history of seizure, hypertension, diabetes mellitus, dementia, hyperlipidemia, atrial fibrillation on Eliquis, hypothyroidism, hearing difficulty, osteoarthritis, chronic kidney disease, coronary artery disease status post CABG Patient is poor historian, he is hard of hearing. Inflammation are obtained from medical records and staff Was brought by the daughter for worsening leg swelling and mild confusion. Patient is tachycardic and tachypneic on admission his temperature is 97.5. Heart rate is 96 and respiratory rate 17 now. He was saturating 92% on room air. Labs reviewed showing unremarkable CBC except for mild anemia with 10.8. INR is 1.3. Glucose was as low as 67, currently corrected up to 106. Creatinine is elevated at 2.5 compared to baseline of 1.7-1.9 Liver enzymes are slightly elevated with AST 135 and PTT 7 while bilirubin is normal at 0.5. Troponin is elevated 0.042. [place] 56574. Urinalysis is not suspicious of infection. Coronary virus not detected EKG showing atrial fibrillation with a rate of 92 CT of the brain: Cerebral atrophy and chronic small vessel ischemia. No acute abnormality. Hydrocephalus Chest x-ray: Pulmonary edema could be CHF process of ARDS 01/24/2022 patient today is alert and awake and interactive, he is little hard of hearing and a little bit confused but looks like this is his baseline, he looks COMFORTABLE and pleasant. He follows Commands Vitals are stable, he is afebrile, no leukocytosis. Does not complain from specific symptoms. Patient in the afternoon he was still awake and alert with no worsening in his mentation since morning indicating more ports this his baseline. His IV Lasix switched oral Lasix and his creatinine stable 2.7. Will Call Order Clerk already cleared the patient. Repeat chest x-ray today shows some residual effect from CHF however patient is on room air. He has a Fairchild catheter placed on admission for he was on high-dose of Lasix, currently we will discontinue the Fairchild catheter and keep checking PVR, discussed with bed side nurse. I don't think the patient has UTI, were going to recheck urinalysis. No antibiotics for now. He is on home dose of the Eliquis Patient glucose is controlled with no coverage. He was on high dose of insulin 70/30 at home 34 units in the morning and 24 units at night that's total 58 units daily, whose glucose wasn't 60 and hypoglycemic on admission. Most likely patient diagnosis is AMS secondary to hypoglycemia. His hemoglobin A1c is controlled 7% 01/25/2022 Patient is awake and alert and interactive since yesterday looks like he is back or close to his baseline, he is hard of hearing. We will DC Fairchild catheter and check PVR and it was 150-200. He still been treated for UTI with ceftriaxone. Urine culture still pending. Repeat urine analysis was still abnormal yesterday. Creatinine is stable and he switched oral Lasix, although chest x-ray shows still some congestion however is clinically doing well, he is not tachypneic or dyspneic and he is on Coumadin saturating well. His currently on insulin sliding scale and insulin 70/30/85 units daily were stopped. Looks like patient cleared by studio grip and lead web application developer as per my discussion with them Possible discharge once urine culture is back 09/27/2011 Patient is very awake and interactive, he is able to withdraw today and check hands with me and he looks a pleasant also is asking to have his male with history of, it looks like patient's back to his mental baseline. He's afebrile and vitals are stable. He failed to void appropriately after discontinuing his Fairchild catheter and he has to be reinserted again, he was started on Flomax. Repeat urine culture still pending Patient is currently off antibiotic Objective - Vital Signs Vital signs: Vital Signs Temp 97.4 F L 01/26/22 03:53 Pulse 91 01/26/22 03:53 Resp 16 01/26/22 03:53 BP 104/63 01/26/22 03:53 Pulse Ox 95 01/26/22 03:53 FiO2 Intake & Output 01/25/22 01/26/22 01/26/22 18:59 06:59 18:59 Intake Total 720 10 Output Total 450 350 Balance 270 -340 Intake: IV 10 Invasive Line 3 10 Oral 720 Output: Urine 450 350 Other: Voiding Method Indwelling Catheter Indwelling Catheter - Exam -GENERAL: The patient is alert , lethargic, not in any acute distress. Well developed, well nourished. HEENT: Pupils are round and equally reacting to light. EOMI. No scleral icterus. No conjunctival pallor. Normocephalic, atraumatic. No pharyngeal erythema. No thyromegaly. CARDIOVASCULAR: S1 and S2 present. No murmurs, rubs, or gallops. PULMONARY: Chest is clear to auscultation, no wheezing or crackles. ABDOMEN: Soft, nontender, nondistended, normoactive bowel sounds. No palpable organomegaly. MUSCULOSKELETAL: No joint swelling or deformity. EXTREMITIES: No cyanosis, clubbing. Minimal pedal edema. NEUROLOGICAL: Gross neurological examination did not reveal any focal deficits. SKIN: No rashes. no petechiae. - Labs CBC & Chem 7: 01/23/22 08:26 01/24/22 08:32 Labs: Abnormal Lab Results - Last 24 Hours (Table) 01/25/22 01/25/22 01/25/22 Range/Units 11:55 16:40 20:03 POC Glucose (mg/dL) 168 H 196 H 235 H (70-110) mg/dL 01/26/22 Range/Units 06:10 POC Glucose (mg/dL) 171 H (70-110) mg/dL Assessment and Plan Assessment: Altered mental status due to metabolic encephalopathy secondary to hypoglycemia. Resolved Acute CHF, resolved Acute kidney injury, most likely hepatorenal syndrome. 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 Patient glucose is controlled Continue with Lasix, but switched oral dose 20 twice a day Cardiology and nephrology team cleared the patient follow-up urine culture Replace Fairchild catheter in. Start Flomax Labs and medication were reviewed.. Continue same treatment. Continue with symptomatic treatment. Resume home medication. Monitor lytes and vitals. DVT and GI prophylaxis. Further recommendations as per clinical course of the patient DVT prophylaxis: Eliquis GI Prophylaxis: Pepcid PT/OT: MERCEDEZ Patient medically stable pending placement, once urine culture is back
[2022-01-26 09:48] VITALS: RESP 18
--- NOTE | 2022-01-26 10:56 | P.PN ---
Subjective Patient is seen for follow-up for acute kidney injury and top of chronic kidney disease. He was admitted to the hospital with increased weakness lower extremity edema and shortness of breath. Chest x-ray showed evidence of pulmonary vascular congestion. Patient was started on IV Lasix and subsequently switched to low- dose by mouth Lasix Patient does not communicate much. He has hearing loss and has a cleft palate. He is not eating much. Patient is laying flat in bed comfortably. O2 sats 100% on room air. Lasix has been decreased Patient has an indwelling Fairchild catheter with urine output at 800 mL Not clear if patient had urine retention initially Ultrasound done this morning does not show hydronephrosis. Right kidney is atrophic at 7.7 cm Objective - Vital Signs Vital signs: Vital Signs Temp 98.0 F 01/26/22 08:14 Pulse 77 01/26/22 08:14 Resp 18 01/26/22 08:14 BP 101/66 01/26/22 08:14 Pulse Ox 97 01/26/22 08:14 FiO2 Intake & Output 01/25/22 01/26/22 01/26/22 18:59 06:59 18:59 Intake Total 720 10 118 Output Total 450 350 Balance 270 -340 118 Intake: IV 10 Invasive Line 3 10 Oral 720 118 Output: Urine 450 350 Other: Voiding Method Indwelling Catheter Indwelling Catheter - Exam Sleeping but arousable, does not communicate much Examination of the heart S1 and S2 Examination of the lungs bilateral breath sounds are heard Abdomen is soft nontender Examination of the lower extremities shows no evidence of edema ELECTRIC VEHICLE ELECTRICIAN exam shows patient has been moving his extremities but does not communicate - Labs CBC & Chem 7: 01/23/22 08:26 01/24/22 08:32 Labs: Abnormal Lab Results - Last 24 Hours (Table) 01/25/22 01/25/22 01/25/22 Range/Units 11:55 16:40 20:03 POC Glucose (mg/dL) 168 H 196 H 235 H (70-110) mg/dL 01/26/22 Range/Units 06:10 POC Glucose (mg/dL) 171 H (70-110) mg/dL Assessment and Plan Assessment: 1. Acute kidney injury, most likely cardiorenal, possible urine retention. Cur rently with indwelling Fairchild catheter 2. Volume overload currently being diuresed 3. Type 2 diabetes with episode of hypoglycemia on admission 4. Chronic A. fib maintained on William was 5. Altered mentation with previous history of dementia. Patient is also quite hard of hearing therefore difficult to understand his ability to comprehend 6. 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 UA shows 1+ protein. Previous creatinine at 1.8 mg/dL all the way back to 2018. Ultrasound shows right renal atrophy with right kidney at 7.7 cm Plan: Continue with low-dose loop diuretics Patient can be discharged from nephrology standpoint.
[2022-01-26 12:03] LABS: Glucose,Whole Blood 153 mg/dL (70-110)
[2022-01-26 16:37] VITALS: BP 124/67; PULSE 80; TEMP 97.8
== END 2022-01-26 17:38 | DRG 291 ==
LOC: EC 20:22 → 3SCARD 01-22 00:35
PROVIDERS: ADMIT Internal Medicine; ATTEND Internal Medicine
DX: I13.0 Hypertensive heart and chronic kidney disease with heart failure and stage 1 through stage 4 chronic kidney disease, or unspecified chronic kidney disease (principal); G92.8 Other toxic encephalopathy; J80 Acute respiratory distress syndrome; K76.7 Hepatorenal syndrome; I50.21 Acute systolic (congestive) heart failure; N17.9 Acute kidney failure, unspecified; G91.9 Hydrocephalus, unspecified; N18.4 Chronic kidney disease, stage 4 (severe); I48.21 Permanent atrial fibrillation; E11.649 Type 2 diabetes mellitus with hypoglycemia without coma; I27.20 Pulmonary hypertension, unspecified; E11.22 Type 2 diabetes mellitus with diabetic chronic kidney disease; F03.90 Unspecified dementia, unspecified severity, without behavioral disturbance, psychotic disturbance, mood disturbance, and anxiety; F02.80 Dementia in other diseases classified elsewhere, unspecified severity, without behavioral disturbance, psychotic disturbance, mood disturbance, and anxiety; G31.9 Degenerative disease of nervous system, unspecified; E03.9 Hypothyroidism, unspecified; I08.3 Combined rheumatic disorders of mitral, aortic and tricuspid valves; D63.1 Anemia in chronic kidney disease; E83.41 Hypermagnesemia; Z95.1 Presence of aortocoronary bypass graft; Z79.01 Long term (current) use of anticoagulants; M79.89 Other specified soft tissue disorders; I25.10 Atherosclerotic heart disease of native coronary artery without angina pectoris; H91.90 Unspecified hearing loss, unspecified ear; E78.5 Hyperlipidemia, unspecified; M19.90 Unspecified osteoarthritis, unspecified site; R77.8 Other specified abnormalities of plasma proteins; Z20.822 Contact with and (suspected) exposure to COVID-19; R00.0 Tachycardia, unspecified; R33.9 Retention of urine, unspecified; Z86.69 Personal history of other diseases of the nervous system and sense organs; Z79.4 Long term (current) use of insulin; Z79.890 Hormone replacement therapy; Z88.1 Allergy status to other antibiotic agents; Z88.8 Allergy status to other drugs, medicaments and biological substances; Z55.0 Illiteracy and low-level literacy; Z98.890 Other specified postprocedural states; Q35.9 Cleft palate, unspecified; Z79.899 Other long term (current) drug therapy; Z82.49 Family history of ischemic heart disease and other diseases of the circulatory system
CPT/HCPCS: 36415; 51701; 70450; 71045; 76770; 80048; 80053; 81001; 83036; 83605; 83735; 83880; 84145; 84484; 85025; 85610; 85730; 87086; 87635; 93005; 93306; 96361; 96374; 96375; 99285

== ENCOUNTER 2022-01-27 20:57 | Emergency (ER) | payer MEDICARE ==
[2022-01-27] MEDS ORDERED: SODIUM CHLORIDE 0.9% 1,000 ML IV ONE (21:46)
[2022-01-27] MEDS ORDERED: SODIUM CHLORIDE 0.9% 1,000 ML IV STA (21:46)
--- NOTE | 2022-01-27 21:50 | XR ---
EXAMINATION TYPE: XR chest 1V DATE OF EXAM: 01/27/2022 COMPARISON: 01/24/2022 HISTORY: Short of breath TECHNIQUE: Single view FINDINGS: There is extensive coarse predominantly interstitial infiltrates in both lungs. There are s ternal wires. There is poor inspiration. IMPRESSION: Extensive pulmonary infiltrates are mostly interstitial. There is reduced lung volumes an d this is probably advanced pulmonary fibrosis. Acute lung disease not entirely excluded.
--- NOTE | 2022-01-27 21:51 | ED ---
Altered Mental Status HPI - General Stated Complaint: Abnormal Labs, Combative Time Seen by Provider: 01/27/22 21:07 Source: EMS Mode of arrival: EMS Limitations: altered mental status - History of Present Illness Initial Comments: 's patient is an 89-year-old man sent in from senior care to be evaluated for reportedly being combative. When I interview the patient, he appears to have moderately severe dementia versus delirium and is not able to give any history. MD Complaint: altered mental status, other - Related Data Home Medications Medication Instructions Recorded Confirmed Atorvastatin [Lipitor] 80 mg PO HS 04/21/19 01/27/22 Donepezil HCl [Aricept] 10 mg PO HS 04/21/19 01/27/22 Ferrous Sulfate [Iron (65 MG 325 mg PO DAILY@0 04/21/19 01/27/22 Elemental)] Magnesium Oxide [Mag-Ox] 400 mg PO DAILY@0 04/21/19 01/27/22 Metoprolol Succinate (ER) [Toprol 25 mg PO DAILY@0800 04/21/19 01/27/22 XL] Multivitamins, Thera [Multivitamin 1 tab PO DAILY@1700 04/21/19 01/27/22 (formulary)] Sertraline [Zoloft] 100 mg PO DAILY@0800 04/21/19 01/27/22 Levothyroxine Sodium [Synthroid] 150 mcg PO DAILY@0600 01/22/22 01/27/22 lamoTRIgine 100 mg PO DAILY@0801/22/22 01/27/22 Apixaban [Eliquis] 2.5 mg PO BID@0800,1700 01/27/22 01/27/22 Ativan 2mg/Ml 0.5 mg IM ONCE PRN 01/27/22 01/27/22 Fish Oil/Dha/Epa [Fish Oil 1,200 1 cap PO DAILY@1700 01/27/22 01/27/22 mg Fish Oil] Furosemide [Lasix] 20 mg PO BID@0800,1400 01/27/22 01/27/22 Insulin Lispro See Protocol SQ ACHS 01/27/22 01/27/22 LORazepam [Ativan] 0.5 mg PO Q8H PRN 01/27/22 01/27/22 Magnesium Hydroxide [Milk of 7,200 mg PO Q48H PRN 01/27/22 01/27/22 Magnesia Concentrate] Na Phos,M-B/Na Phos,Di-Ba [Fleet 133 ml RECTAL DAILY PRN 01/27/22 01/27/22 Adult] Tamsulosin [Flomax] 0.4 mg PO DAILY@0800 01/27/22 01/27/22 bisacodyL [Dulcolax] 10 mg RECTAL DAILY PRN 01/27/22 01/27/22 Allergies Allergy/AdvReac Type Severity Reaction Status Date / Time cephalexin [From Keflex] Allergy Unknown Verified 01/27/22 21:39 dexamethasone [From Decadron] Allergy Unknown Verified 01/27/22 21:39 sulfamethoxazole Allergy Unknown Verified 01/27/22 21:39 [From Bactrim] trimethoprim [From Bactrim] Allergy Unknown Verified 01/27/22 21:39 Review of Systems ROS Statement: Those systems with pertinent positive or pertinent negative responses have been documented in the HPI. ROS Other: All systems not noted in ROS Statement are negative. Limitations: ROS unobtainable due to patients medical condition Past Medical History Past Medical History: Atrial Fibrillation, Diabetes Mellitus, Hearing Disorder / Deafness, Hyperlipidemia, Hypertension, Osteoarthritis (OA), Renal Disease Additional Past Medical History / Comment(s): ulcer years ago, has cleft palate & is very hard to understand, never learned to read, ramírez removed 05/[address] Edward, hearing loss History of Any Multi-Drug Resistant Organisms: None Reported Past Surgical History: Coronary Bypass/CABG, Heart Catheterization Additional Past Surgical History / Comment(s): triple bypass 20 yrs. ago, trigger finger surg. today on left pinky & middle fingers-current bandages on Past Anesthesia/Blood Transfusion Reactions: No Reported Reaction Additional Past Anesthesia/Blood Transfusion Reaction / Comment(s): Pt has received blood in past without reaction. Past Psychological History: No Psychological Hx Reported Smoking Status: Never smoker Past Alcohol Use History: None Reported Past Drug Use History: None Reported - Past Family History Daughter(s) Family Medical History: Hypertension General Exam General appearance: alert, cachectic Head exam: Present: atraumatic, normocephalic Eye exam: Present: PERRL, EOMI. Absent: scleral icterus, conjunctival injection ENT exam: Present: mucous membranes dry Neck exam: Present: full ROM. Absent: tenderness, meningismus Respiratory exam: Present: rhonchi. Absent: respiratory distress, wheezes, rales, stridor Cardiovascular Exam: Present: regular rate, normal rhythm, normal heart sounds. Absent: systolic murmur, diastolic murmur, rubs, gallop GI/Abdominal exam: Present: soft. Absent: distended, tenderness, guarding, rebound, rigid exam: Present: other (Ramírez catheter present with clear yellow urine draining) Extremities exam: Present: normal inspection, normal capillary refill. Absent: tenderness, calf tenderness Back exam: Present: normal inspection Neurological exam: Present: altered, CN II-XII intact, other (Patient moving all 4 extremities, not cooperative with neurologic exam) Skin exam: Present: warm, dry, intact, normal color. Absent: rash Course Vital Signs 01/27/22 01/28/22 01/28/22 21:49 00:36 03:00 Temperature 98.9 F Pulse Rate 88 71 Pulse Rate [ 82 Right] Respiratory 15 17 14 Rate Blood Pressure 139/59 136/71 Blood Pressure 141/68 [Right Arm] O2 Sat by Pulse 97 96 96 Oximetry Medical Decision Making - Medical Decision Making Patient is a 89-year-old man presenting from senior care with altered mental status. The workup reveals patient moderately dehydrated, with acute kidney injury. The patient is pending admission, Patient receiving fluid hydration when patient lost vital signs, given no CODE STATUS is pronounced in emergency department. Case discussed with his primary physician by myself, nursing staff discussed with medical surgery nurse - Lab Data Result diagrams: 01/28/22 00:35 01/28/22 00:35 Lab Results 01/27/22 01/28/22 01/28/22 Range/Units 00:35 00:35 00:35 WBC 12.0 H (3.8-10.6) k/uL RBC 3.96 L (4.30-5.90) m/uL Hgb 10.2 L (13.0-17.5) gm/dL Hct 33.8 L (39.0-53.0) % MCV 85.5 (80.0-100.0) fL MCH 25.9 (25.0-35.0) pg MCHC 30.3 L (31.0-37.0) g/dL RDW 14.8 (11.5-15.5) % Plt Count 216 (150-450) k/uL MPV 9.1 Neutrophils % 89 % Lymphocytes % 5 % Monocytes % 5 % Eosinophils % 0 % Basophils % 0 % Neutrophils # 10.6 H (1.3-7.7) k/uL Lymphocytes # 0.6 L (1.0-4.8) k/uL Monocytes # 0.5 (0-1.0) k/uL Eosinophils # 0.0 (0-0.7) k/uL Basophils # 0.0 (0-0.2) k/uL Hypochromasia Moderate Sodium 137 (137-145) mmol/L Potassium 5.6 H (3.5-5.1) mmol/L Chloride 93 L (98-107) mmol/L Carbon Dioxide 23 (22-30) mmol/L Anion Gap 21 mmol/L BUN 60 H (9-20) mg/dL Creatinine 3.28 H (0.66-1.25) mg/dL Est GFR (CKD-EPI)AfAm 18 (>60 ml/min/1.73 sqM) Est GFR (CKD-EPI)NonAf 16 (>60 ml/min/1.73 sqM) Glucose 201 H (74-99) mg/dL Lactic Ac Sepsis Rflx Plasma Lactic Acid Davis (0.7-2.0) mmol/L Calcium 9.4 (8.4-10.2) mg/dL Total Bilirubin 0.8 (0.2-1.3) mg/dL AST 64 H (17-59) U/L ALT 37 (4-49) U/L Alkaline Phosphatase 184 H (38-126) U/L Troponin I (0.000-0.034) ng/mL Total Protein 6.8 (6.3-8.2) g/dL Albumin 4.3 (3.5-5.0) g/dL Urine Color Yellow Urine Appearance Cloudy (Clear) Urine pH 5.5 (5.0-8.0) Ur Specific [place] 1.015 (1.001-1.035) Urine Protein 1+ H (Negative) Urine Glucose (UA) Negative (Negative) Urine Ketones Negative (Negative) Urine Blood Moderate H (Negative) Urine Nitrite Negative (Negative) Urine Bilirubin Negative (Negative) Urine Urobilinogen <2.0 (<2.0) mg/dL Ur Leukocyte Esterase Moderate H (Negative) Urine RBC 69 H (0-5) /hpf Urine WBC 9 H (0-5) /hpf Ur Squamous Epith Cells <1 (0-4) /hpf Urine Bacteria Rare H (None) /hpf Urine Mucus Rare H (None) /hpf 01/28/22 01/28/22 01/28/22 Range/Units 00:35 00:35 02:08 WBC (3.8-10.6) k/uL RBC (4.30-5.90) m/uL Hgb (13.0-17.5) gm/dL Hct (39.0-53.0) % MCV (80.0-100.0) fL MCH (25.0-35.0) pg MCHC (31.0-37.0) g/dL RDW (11.5-15.5) % Plt Count (150-450) k/uL MPV Neutrophils % % Lymphocytes % % Monocytes % % Eosinophils % % Basophils % % Neutrophils # (1.3-7.7) k/uL Lymphocytes # (1.0-4.8) k/uL Monocytes # (0-1.0) k/uL Eosinophils # (0-0.7) k/uL Basophils # (0-0.2) k/uL Hypochromasia Sodium (137-145) mmol/L Potassium (3.5-5.1) mmol/L Chloride (98-107) mmol/L Carbon Dioxide (22-30) mmol/L Anion Gap mmol/L BUN (9-20) mg/dL Creatinine (0.66-1.25) mg/dL Est GFR (CKD-EPI)AfAm (>60 ml/min/1.73 sqM) Est GFR (CKD-EPI)NonAf (>60 ml/min/1.73 sqM) Glucose (74-99) mg/dL Lactic Ac Sepsis Rflx Y Plasma Lactic Acid Davis 4.1 H* (0.7-2.0) mmol/L Calcium (8.4-10.2) mg/dL Total Bilirubin (0.2-1.3) mg/dL AST (17-59) U/L ALT (4-49) U/L Alkaline Phosphatase (38-126) U/L Troponin I 0.091 H* (0.000-0.034) ng/mL Total Protein (6.3-8.2) g/dL Albumin (3.5-5.0) g/dL Urine Color Urine Appearance (Clear) Urine pH (5.0-8.0) Ur Specific [place] (1.001-1.035) Urine Protein (Negative) Urine Glucose (UA) (Negative) Urine Ketones (Negative) Urine Blood (Negative) Urine Nitrite (Negative) Urine Bilirubin (Negative) Urine Urobilinogen (<2.0) mg/dL Ur Leukocyte Esterase (Negative) Urine RBC (0-5) /hpf Urine WBC (0-5) /hpf Ur Squamous Epith Cells (0-4) /hpf Urine Bacteria (None) /hpf Urine Mucus (None) /hpf Disposition Clinical Impression: Elevated troponin, Acute kidney injury, Dehydration Disposition: Condition: Undetermined Is patient prescribed a controlled substance at d/c from ED?: No Referrals: Feliz Rojas MD [Primary Care Provider] - 1-2 days Preliminary Cause of : Cardiopulmonary arrest
[2022-01-27 21:55] VITALS: TEMP 98.9
[2022-01-28 00:50] LABS: Basophils % (A) 0 %; Eosinophils % (A) 0 %; HCT 33.8 % (39.0-53.0); HGB 10.2 gm/dL (13.0-17.5); Hypochromasia Moderate; Lymphocytes # (A) 0.6 k/uL (1.0-4.8); Lymphocytes % (A) 5 %; MCH 25.9 pg (25.0-35.0); MCHC 30.3 g/dL (31.0-37.0); MCV 85.5 fL (80.0-100.0); Mean Platelet Volume 9.1; Monocytes # (A) 0.5 k/uL (0-1.0); Monocytes % (A) 5 %; Neutrophils # (A) 10.6 k/uL (1.3-7.7); Neutrophils % (A) 89 %; Platelet Count 216 k/uL (150-450); RBC 3.96 m/uL (4.30-5.90); RDW 14.8 % (11.5-15.5)
[2022-01-28 00:56] LABS: Appearance,Urine Cloudy (Clear); Bacteria,Urine Rare /hpf; Bilirubin,Urine Negative (Negative); Blood,Urine Moderate (Negative); Color,Urine Yellow; Glucose,Urine (UA) Negative (Negative); Ketones,Urine Negative (Negative); Leukocyte Esterase,Urine Moderate (Negative); Mucus,Urine Rare /hpf; Nitrite,Urine Negative (Negative); PH, Urine 5.5 (5.0-8.0); Protein,Urine 1+ (Negative); RBC,Urine 69 /hpf (0-5); Specific Gravity,Urine 1.015 (1.001-1.035); Squamous Epithelial Cell,Urine <1 /hpf (0-4); Urobilinogen,Urine <2.0 mg/dL (<2.0); WBC,Urine 9 /hpf (0-5)
[2022-01-28 00:57] LABS: Albumin 4.3 g/dL (3.5-5.0); Calcium 9.4 mg/dL (8.4-10.2); Potassium 5.6 mmol/L (3.5-5.1); Total Bilirubin 0.8 mg/dL (0.2-1.3); Total Protein 6.8 g/dL (6.3-8.2)
[2022-01-28] MEDS ORDERED: SODIUM CHLORIDE 0.9% 1,000 ML IV ONE (04:16)
[2022-01-28 06:13] VITALS: BP 136/71; PULSE 71; RESP 14
== END 2022-01-28 09:51 | disposition expired ==
LOC: EC 20:57
DX: R77.8 Other specified abnormalities of plasma proteins (principal); N17.9 Acute kidney failure, unspecified; E86.0 Dehydration; I48.91 Unspecified atrial fibrillation; E11.9 Type 2 diabetes mellitus without complications; I10 Essential (primary) hypertension; E78.5 Hyperlipidemia, unspecified; M19.90 Unspecified osteoarthritis, unspecified site; Z95.1 Presence of aortocoronary bypass graft; H91.90 Unspecified hearing loss, unspecified ear; Z88.1 Allergy status to other antibiotic agents; Z88.8 Allergy status to other drugs, medicaments and biological substances; Z88.2 Allergy status to sulfonamides; Z79.899 Other long term (current) drug therapy; Z79.01 Long term (current) use of anticoagulants; Z79.84 Long term (current) use of oral hypoglycemic drugs; Z79.4 Long term (current) use of insulin
CPT/HCPCS: 36415; 71045; 80053; 81001; 83605; 84484; 85025; 85027; 87086; 99285